=== PATIENT | female | born 1945 | race Caucasian/White ===

== ENCOUNTER → 2017-10-09 11:32 | Outpatient (CLI) | payer MEDICARE, MEDICAID, SELFPAY | PROVIDERS: Visit Provider Physician Assistant | DX: R30.0 Dysuria (principal) | CPT/HCPCS: 87086; 87088 ==

== ENCOUNTER → 2018-06-27 17:07 | Outpatient (CLI) | payer MEDICARE, MEDICAID, SELFPAY ==
[2017-02-19 16:45] VITALS: BMI 21.2
[2018-06-27 17:50] LABS: Hematocrit 37.6 % (37-47); Hemoglobin 12.6 g/dl (12.0-15.0); Mean Corp Hgb Conc 33.5 g/gl (32-36); Mean Corpuscular Hgb 32.2 pg (27.0-32.0); Mean Corpuscular Volume 96.2 fL (81-99); Platelet Count 421 K/mm3 (150-450); RBC Distribution Width CV 13.3 % (11.6-14.6); RBC Distribution Width SD 46.4 fl (35.1-43.9); Red Blood Count 3.91 M/mm3 (4.2-5.4); White Blood Count 8.1 K/mm3 (4.4-11.0)
[2018-06-27 17:53] LABS: Erythrocyte Sedimentation Rate 7 mm/hr (0-30); Scan Indicated on CBC? Y/N NO
[2018-06-27 18:08] LABS: ALB/GLOB Ratio 1.3 RATIO (0.9-2.4); AST(SGOT) 20 U/L (15-37); Alanine Aminotransfer ALT/SGPT 15 U/L (13-56); Albumin, Serum 4.2 g/dL (3.2-5.0); Alkaline Phosphatase 74 U/L (45-117); Anion Gap 4 (5-15); BUN 23 mg/dL (7-18); BUN/Creat Ratio 25.2 RATIO (10-20); Calcium,Total 9.4 mg/dL (8.5-10.1); Chloride 101 mmol/L (98-107); Cholesterol 191 mg/dL (200); Creatinine, Serum 0.91 mg/dL (0.55-1.02); EST Glomerular Filtration Rate 65 mL/min (>60); Est Glom Filt Rate - Afr Amer 78 mL/min (>60); Globulin 3.3 g/dL (2.2-4.2); Glucose 101 mg/dL (74-106); High Density Lipoprotein 50 mg/dL; Potassium 4.7 mmol/L (3.5-5.1); Protein, Total 7.5 g/dL (6.4-8.2); Sodium Level 133 mmol/L (136-145); Thyroid Stim Hormone (TSH) 1.01 uIU/mL (0.358-3.74); Triglycerides 119 mg/dL; Very Low Density Lipoprotein 24 mg/dL (5-40); Vitamin D,25 Hydroxy 99.1 ng/mL (29.95-100.01)
== END ==
PROVIDERS: Family Provider Physician Assistant; PCP Physician Assistant; Referring Provider Physician Assistant; Visit Provider Physician Assistant
DX: F50.00 Anorexia nervosa, unspecified (principal); Z13.220 Encounter for screening for lipoid disorders; G40.009 Localization-related (focal) (partial) idiopathic epilepsy and epileptic syndromes with seizures of localized onset, not intractable, without status epilepticus; E55.9 Vitamin D deficiency, unspecified
CPT/HCPCS: 80053; 80061; 82306; 84443; 85027; 85652

== ENCOUNTER → 2018-06-30 | Outpatient (CLI) | payer MEDICARE, MEDICAID, SELFPAY ==
[2017-02-19 16:45] VITALS: BMI 21.2
[2018-07-04 12:00] LABS: KEPPRA (LEVETIRACETAM) 43.4 ug/mL (10.0-40.0)
== END | disposition home or self-care (01) ==
LOC: LABSPEC 10:13
PROVIDERS: Family Provider Physician Assistant; PCP Physician Assistant; Referring Provider Physician Assistant; Visit Provider Physician Assistant
DX: G40.009 Localization-related (focal) (partial) idiopathic epilepsy and epileptic syndromes with seizures of localized onset, not intractable, without status epilepticus (principal)
CPT/HCPCS: 80177

== ENCOUNTER → 2018-07-16 | Outpatient (CLI) | payer MEDICARE, MEDICAID, SELFPAY | END | disposition home or self-care (01) | LOC: LABSPEC 07-17 12:50 | PROVIDERS: Family Provider Physician Assistant; PCP Physician Assistant; Referring Provider Family Medicine; Visit Provider Family Medicine | DX: R35.0 Frequency of micturition (principal) | CPT/HCPCS: 87077; 87086; 87088 ==

== ENCOUNTER → 2018-07-22 | Outpatient (CLI) | payer MEDICARE, MEDICAID, SELFPAY ==
[2017-02-19 16:45] VITALS: BMI 21.2
[2018-07-22 16:28] LABS: Anion Gap 5 (5-15); BUN 17 mg/dL (7-18); BUN/Creat Ratio 18.2 RATIO (10-20); Calcium,Total 9.1 mg/dL (8.5-10.1); Chloride 102 mmol/L (98-107); Creatinine, Serum 0.93 mg/dL (0.55-1.02); EST Glomerular Filtration Rate 63 mL/min (>60); Est Glom Filt Rate - Afr Amer 76 mL/min (>60); Glucose 68 mg/dL (74-106); Sodium Level 136 mmol/L (136-145)
== END | disposition home or self-care (01) ==
LOC: LABSPEC 15:55
PROVIDERS: Family Provider Physician Assistant; PCP Physician Assistant; Referring Provider Family Medicine; Visit Provider Family Medicine
DX: E87.1 Hypo-osmolality and hyponatremia (principal)
CPT/HCPCS: 80048

== ENCOUNTER 2018-07-26 13:12 | Emergency (ER) | payer MEDICARE, MEDICAID, SELFPAY ==
[2018-07-26 13:14] VITALS: BP 124/68; PULSE 78; RESP 19; TEMP 37; O2SAT 94; BMI 16.8
[2018-07-26 14:01] LABS: Absolute Lymphocyte Count 0.67 X10^3/ul (0.83-4.51); Absolute Neutrophil Count 7.1 X10^3/uL (2.0-7.7); Basophil# 0.03 X10^3/uL; Basophil% 0.4 % (0-1); Eosinophil# 0.05 X10^3/uL; Eosinophils% 0.6 % (0-5); Hematocrit 37.1 % (37-47); Hemoglobin 12.6 g/dl (12.0-15.0); Lymphocyte # 0.67 X10^3/ul (4.0); Lymphocyte % 7.9 % (19-41); Mean Corpuscular Hgb 32.1 pg (27.0-32.0); Mean Corpuscular Volume 94.6 fL (81-99); Mean Platelet Vol. 8.6 fl (6.2-12.0); Monocyte# 0.67 X10^3/uL; Monocyte% 7.9 % (0-10); Neutrophil # 7.06 X10^3/uL (2.7-7.7); Neutrophil % 83.1 % (47-70); POSITIVE COUNT NO; POSITIVE DIFFERENTIAL NO; POSITIVE MORPHOLOGY NO; Platelet Count 372 K/mm3 (150-450); RBC Distribution Width CV 12.9 % (11.6-14.6); RBC Distribution Width SD 44.9 fl (35.1-43.9); Red Blood Count 3.92 M/mm3 (4.2-5.4); White Blood Count 8.5 K/mm3 (4.4-11.0)
--- NOTE | 2018-07-26 14:02 | EKG12_ITS ---
Test Reason : SEIZURES Blood Pressure : / mmHG Vent. Rate : 075 BPM Atrial Rate : 075 BPM P-R Int : 160 ms QRS Dur : 090 ms QT Int : 394 ms P-R-T Axes : 067 013 042 degrees QTc Int : 439 ms Normal sinus rhythm Septal infarct , age undetermined Abnormal ECG Confirmed by NATTY ROJAS, RACHEL ([id number]), editor farm journal FIOR ERYES ([id number]) on 07/28/2018 11:43:09 AM Referred By: AJ/ESTEBAN Confirmed By:RACHEL LUZ MD
[2018-07-26 14:07] LABS: Anion Gap 6 (5-15); BUN 19 mg/dL (7-18); BUN/Creat Ratio 22.8 RATIO (10-20); Calcium,Total 9.3 mg/dL (8.5-10.1); Chloride 101 mmol/L (98-107); Creatinine, Serum 0.84 mg/dL (0.55-1.02); EST Glomerular Filtration Rate 71 mL/min (>60); Est Glom Filt Rate - Afr Amer 86 mL/min (>60); Estimated Creatinine Clearance 41.79 ml/min; Glucose 117 mg/dL (74-106); Potassium 4.1 mmol/L (3.5-5.1); Sodium Level 134 mmol/L (136-145)
--- NOTE | 2018-07-26 14:21 | ED.DCSUM_ITS ---
- ER Visit Summary Date of Service: 07/26/18 Chief Complaint: Seizure History of Present Illness: The patient is a 72 F who presents with a seizure that occurred today. Patient states she has a history of seizures. Patient states she was just told she had a seizure. Patient denies any loss of bowel or bladder control. Patient denies biting her tongue. Patient is unsure if it was a generalized seizure. Patient denies any headaches. Patient states she has chronic neck and back pain but this is not any worse than usual. Patient denies any recent fevers or chills. Family states patient was recently started on antibiotic for urinary tract infection. Physical Examination: Vital signs are stable. Patient is afebrile. Patient is in no acute distress. Oral mucosa is pink and moist. Neck is supple. Trachea is midline. There is no JVD noted. Heart was regular rate and rhythm. Lungs are clear and equal bilateral. Abdomen is soft. Bowel sounds are normal. There is no tenderness. There is no guarding noted. Skin is warm dry. Cranial nerves II through XII are intact. There are no focal motor or sensory deficits noted. The remaining physical exam is within normal limits. Test Results: CBC was normal. Basic metabolic profile was essentially normal. Urinalysis shows 1+ bacteria, leukocyte esterase of 25, and occult blood of 10. A Lamictal level was ordered and is pending. Emergency Department Course and Treatment: Patient had no further seizure activity here in the emergency department. Patient was instructed to stop taking the Cipro. Patient was given a prescription for Bactrim. Patient was instructed to follow-up with her primary care physician in 5 to 7 days. Patient and family understood and were agreeable with the plan. All questions were answered. Disposition: Discharge home Impression: Seizure disorder with breakthrough seizure This note was generated with [employer] dictation software. It may contain incorrect words, spelling, and punctuation that were not noted in review of the chart prior to signing ED Disposition - Plan for ED Patient: Disposition: Home or Assisted Living Diagnosis: Breakthrough seizure Instructions: ED Seizure Recurrent Prescriptions: Smz/Tmp Ds [Bactrim Ds] 1 tab PO BID #6 tab Referrals: Navjot Muñoz PA [Primary Care Provider] - 3-5 Days Additional Instructions: Stop taking Cipro and take Bactrim instead.
[2018-07-26 14:48] LABS: Red Blood Cells-Urine 0 SEEN /hpf (0-5)
[2018-07-26 14:51] LABS: Color, Urine Yellow (Yellow); Glucose, Dipstick Normal (Normal); Ketone-Dipstick 5 mg/dl (Negative); Leukocyte Esterase-Dipstick 25 /ul (Negative); Nitrite-Dipstick Negative (Negative); Occult Blood-Urine 10 /ul (Negative); Protein-Dipstick 30 mg/dl (Negative); Urine Bilirubin Dipstick Negative (Negative); Urine Clarity Clear (Clear); Urine Urobilinogen Normal (Normal)
[2018-07-26 14:54] VITALS: BP 128/65; PULSE 69; RESP 19; O2SAT 95
[2018-07-26 14:57] LABS: Bacteria 1+ /hpf (None Seen); Hyaline Cast 5-10 SEEN /lpf (0-5); Mucous, Urine 1+ /hpf (<or=2+); Squamous Epithelial Cells - UA 0-5 SEEN /hpf (5-10); White Blood Cells 0-5 SEEN /hpf (0-5)
[2018-07-26 17:09] VITALS: BP 122/71; PULSE 61; RESP 18; O2SAT 96
[2018-07-30 12:20] LABS: Lamotrigine (Lamictal) Level 6.8 ug/mL (2.0-20.0)
== END 2018-07-26 17:10 | disposition home or self-care (01) ==
PROVIDERS: Emergency Provider Emergency Medicine; Family Provider Physician Assistant; PCP Physician Assistant
DX: G40.909 Epilepsy, unspecified, not intractable, without status epilepticus (principal); M54.2 Cervicalgia; M54.9 Dorsalgia, unspecified; G89.29 Other chronic pain; N39.0 Urinary tract infection, site not specified; Z79.899 Other long term (current) drug therapy; F17.200 Nicotine dependence, unspecified, uncomplicated
CPT/HCPCS: 80048; 81001; 82542; 85025; 93005; 99285; A4216

== ENCOUNTER 2018-09-27 12:10 | Emergency (ER) | payer MEDICARE, MEDICAID, SELFPAY ==
[2018-09-27 12:11] VITALS: BP 118/62; PULSE 68; RESP 15; TEMP 36.1; O2SAT 95
[2018-09-27 13:02] VITALS: BP 118/62; PULSE 68; RESP 15; TEMP 36.1; O2SAT 95
--- NOTE | 2018-09-27 13:15 | CM.ED ---
SOCIAL WORK INFORMANT: TRIAGE NURSE REASON FOR REFERRAL: MENTAL HEALTH/S.I. MET WITH PATIENT AND PATIENT'S FAMILY IN ROOM. GIVEN PERMISSION TO SPEAK OPENLY WITH FAMILY PRESENT. INTRODUCED ROLE AND REASON FOR REFERRAL. PATIENT ADMITS TO SUICIDAL IDEATION, DENIES ANY PLAN OR INTENT. PATIENT STATES HAS HAD DIARRHEA FOR SEVERAL DAYS WITH NO APPETITE. PATIENT STATES HAS JUST BEEN FEELING ACHY ALL OVER. EMOTIONAL SUPPORT PROVIDED. FAMILY VOICES CONCERNS FOR PATIENT REGARDING DEHYDRATION AND DIARRHEA. FAMILY REPORTS MEDICATIONS FOR DEPRESSION HAVE BEEN RECENTLY CHANGED OVER THE LAST 3 WEEKS. PATIENT WAS SWITCHED FROM LEXAPRO TO CYMBALTA. CYMBALTA WAS INCREASED FROM 30MG TO 60MG OVER THE LAST 2 WEEKS. FAMILY BELIEVES PATIENT WOULD BENEFIT FROM COUNSELING. PATIENT REFUSING. FAMILY VOICES PATIENT HAS BEEN MORE CONFUSED. EDUCATION ACTIVE LISTENING AND SUPPORT PROVIDED. FAMILY REPORTS PROVIDES 24 HOUR CARE OF PATIENT AND PATIENT IS NOT LEFT BY HERSELF. DISCUSSED THE ABOVE WITH HIGH REACH OPERATOR, RAYNA REYES. RAYNA TO COMPLETE WORK UP. RALPH VILLAFANA, WINE MASTER, MERCHANDISE DIRECTOR.
--- NOTE | 2018-09-27 13:40 | ED.RN ---
pt not a 1 to 1 required sitter per neetu la and [facility] social work
--- NOTE | 2018-09-27 13:45 | ED.VIS.GEN ---
History of Present Illness Chief Complaint: Diarrhea Informant: Patient, Family Onset: Weeks Context: Gradual Onset Timing: - - 3-4 times daily Current Severity: Moderate Maximum Severity: Moderate Worsened by: Nothing Relieved by: Nothing Narrative: Chelly is a 73-year-old female with diarrhea for 1 week. She states she says 3-4 bowel movements daily. They are not bloody. She denies abdominal pain or fever. She denies nausea ,vomiting although she did have dry heaves this morning. Complains of weight loss. Prior similar symptoms: No Recent Illness/Hospitalization: No Past Medical History - Allergies and Home Meds Allergies/Adverse Reactions: Allergies diltiazem Allergy (Verified 09/27/18 12:11) Unknown gabapentin Allergy (Verified 09/27/18 12:11) SEVERE LEG SWELLING hydrochlorothiazide [From Dyazide] Allergy (Verified 09/27/18 12:11) Unknown metoprolol Allergy (Verified 09/27/18 12:11) Unknown phenytoin [From Dilantin] Allergy (Verified 09/27/18 12:11) TREMORS/TWITCHING triamterene Allergy (Verified 09/27/18 12:11) Unknown ciprofloxacin [From Cipro] Adverse Reaction (Verified 09/27/18 12:11) Other Primary Care Physician: Navjot Muñoz PA [Primary Care Provider] - Smoking Status: Never smoker - Family History Sibling Family History: Reports: Diabetes, Heart Disease Review of Systems General: Denies: Chills, Fever Eyes: Denies: Visual changes - left, Blurred vision - left Cardiovascular: Denies: Chest pain, Palpitations Respiratory: Denies: Dyspnea, Cough, Sputum Gastrointestinal: Reports: Diarrhea. Denies: Abdominal pain, Nausea, Vomiting, Constipation, Melena, Hematochezia - Dry heaves earlier today Genitourinary: Reports: Frequency. Denies: Dysuria, Hematuria Musculoskeletal: Denies: Neck pain, Back pain, Extremity Pain Neurological: Denies: Headache, Weakness, Parasthesia Physical Exam Vital Signs/Narrative: Vital Signs Temp Pulse Resp BP Pulse Ox 09/27/18 13:02 96.9 F L 68 15 118/62 95 09/27/18 12:11 96.9 F L 68 15 118/62 95 General: Well nourished, Well developed Head: Normocephalic, Atraumatic Eyes: Perrl, EOMI. Negative for: Pale conjunctiva ENT: Moist mucous membranes. Negative for: Dry mucous membranes Neck: Supple, Nontender Cardiovascular: Regular rate, Regular rhythm, No murmurs Respiratory: No distress, CTA bilaterally Abdomen: Soft, Nontender, Nondistended Back: Normal Inspection. Negative for: CVA tenderness Extremities: Nontender, No edema Skin: Normal color, No rash Neurological: Alert, Oriented x3 Psychological: Normal affect, Agitated - Family who she lives with stated that she has been grouchy her than normal and recently had her psychiatric medications changed. She has had suicidal ideation and suicide attempt with overdose in the past. She currently denies this but states she is just mad that she is here. Diagnostic/Tx/Re-eval - Medical Decision Making Lab tests reveal potassium of 2.6 otherwise unremarkable. She did not produce a stool specimen while in the emergency department for several hours. Her urine was sent to the lab but was never received. Patient was hydrated with IV fluids and her mucous membranes were moist her entire stay here. She had no complaints she was treated with K-Dur for her potassium 2.6. road production general managerbusiness resiliency manager worker did evaluate her for statement of being suicidal in triage. She is felt to be low risk as she currently denies it and lives with family 17/09. States she is seeing a psychiatrist who is adjusting her medicines. The only thing different the family has noted that she has been grouchy or than normal. She will be discharged home with family with a prescription for potassium. She has a specimen cup at home to collect her stool to evaluate. Plan is discharged home after IV potassium replacement. Will be prescribed 5 days of potassium supplement for home. Total care is resumed by Dr Daniels. imPression: Hypokalemia Diarrhea Mild dehydration Psychiatric illness under psychiatric outpatient care without acute suicidal ideation ED Disposition - Plan for ED Patient: Disposition: Home or Assisted Living Diagnosis: Hypokalemia Instructions: DIARRHEA, Unk Cause (Adult) Report Pendg Prescriptions: Potassium Chloride [K-Dur] 40 meq PO DAILY #10 tab Prescription Printed Referrals: Navjot Muñoz PA [Primary Care Provider] -
[2018-09-27 14:15] LABS: Absolute Lymphocyte Count 0.66 X10^3/uL (0.83-4.51); Absolute Neutrophil Count 6.3 X10^3/uL (2.0-7.7); Basophil# 0.03 X10^3/uL; Basophil% 0.4 % (0-1); Eosinophil# 0.02 X10^3/uL; Eosinophils% 0.3 % (0-5); Hematocrit 36.4 % (37-47); Hemoglobin 12.6 g/dL (12.0-15.0); Lymphocyte # 0.66 X10^3/ul (4.0); Lymphocyte % 8.6 % (19-41); Mean Corp Hgb Conc 34.6 g/dL (32-36); Mean Corpuscular Hgb 31.7 pg (27.0-32.0); Mean Corpuscular Volume 91.7 fL (81-99); Mean Platelet Vol. 8.4 fl (6.2-12.0); Monocyte# 0.61 X10^3/uL; NRBC Flagged by Analyzer 0 % (0-5); Neutrophil # 6.33 X10^3/uL (2.7-7.7); Neutrophil % 82.4 % (47-70); Platelet Count 319 K/mm3 (150-450); RBC Distribution Width CV 11.9 % (11.6-14.6); Red Blood Count 3.97 M/mm3 (4.2-5.4); White Blood Count 7.7 K/mm3 (4.4-11.0)
[2018-09-27 14:36] LABS: Anion Gap 9 (5-15); BUN 18 mg/dL (7-18); BUN/Creat Ratio 21.5 RATIO (10-20); Calcium,Total 8.7 mg/dL (8.5-10.1); Chloride 101 mmol/L (98-107); Creatinine, Serum 0.84 mg/dL (0.55-1.02); EST Glomerular Filtration Rate 71 mL/min (>60); Est Glom Filt Rate - Afr Amer 86 mL/min (>60); Estimated Creatinine Clearance 17.56 ml/min; Glucose 110 mg/dL (74-106); Potassium 2.6 mmol/L (3.5-5.1); Sodium Level 138 mmol/L (136-145)
--- NOTE | 2018-09-27 15:46 | ED.RN ---
pt has not had any episode of diarrhea so far in this visit
--- NOTE | 2018-09-27 16:15 | NURSING ---
RN CALLED TO LAB TO CHECK ON URINE RESULTS, LAB STATES THEY DIDN'T RECEIVE ANY URINE. RAYNA MEDIA REPORTER AWARE AND DOES NOT WANT ANOTHER URINE SAMPLE AT THIS TIME.
--- NOTE | 2018-09-27 17:39 | ED.RN ---
pt wants to leave AMA. family states they will just leave her here. dr alcantar into room to discuss treatment goals and options with the family. pt refuses to allow dayna rn to attach monitor leads or start potassium at this time. Dale from social work contacted , in department to talk with family and Dr Alcantar
[2018-09-27] MEDS: Potassium Chloride 10mEq/100mL 10 MEQ/100 ML IV.SOLN. 100 MEQ IV BOLUS ×2 (18:04→19:06)
[2018-09-27 18:15] VITALS: BP 133/65; PULSE 82; RESP 18; O2SAT 98
--- NOTE | 2018-09-27 18:20 | CM.ED ---
Addendum entered by Zoila Villafana 09/27/18 18:43: AFTER LENGTHY DISCUSSION WITH FAMILY. PLAN TO MAKE ADULT PROTECTIVE SERVICE REPORT REGARDING HOME SITUATION. Original Note: SOCIAL WORK THIS WORKER MET WITH PATIENT AND PATIENT'S FAMILY SEPARATELY. PATIENT CONTINUES TO DENY SUICIDAL IDEATION AND STATES JUST WANTS TO GO HOME. ENCOURAGED PATIENT TO COMPLY WITH PLAN OF CARE AND RECEIVE POTASSIUM. AT THIS TIME, PATIENT AGREEABLE TO PLAN OF CARE. NURSE, MINI UPDATED. MET WITH PATIENT'S FAMILY OUTSIDE. DISCUSSED ISSUES AT HOME AND PATIENT AND DAUGHTER'S BEHAVIORS TOWARDS EACH OTHER. EDUCATION AND EMOTIONAL SUPPORT PROVIDED. DAUGHTER STATES, I JUST WANT HER TO GET BETTER. DAUGHTER STATES DOES FEEL LIKE SHE ESCALATES PATIENT. INFORMED DAUGHTER AND SISTER PATIENT IS AGREEABLE TO RECEIVING POTASSIUM. FAMILY STATES THEY ARE GOING TO LEAVE FOR A LITTLE BIT, BUT WILL BE BACK AND ARE IN AGREEMENT WITH TAKING PATIENT HOME UPON D/C. NURSING AND DR. ADKINS UPDATED. ZOILA VILLAFANA, COAGULATING OPERATOR, BRINE ROOM LABORER.
--- NOTE | 2018-09-27 18:25 | ED.RN ---
Dale from [employer] to make report to [facility] regarding pt care
[2018-09-27 20:00] VITALS: BP 147/71; PULSE 83; RESP 18; O2SAT 95
--- NOTE | 2018-10-01 18:57 | CM.ED ---
SOCIAL WORK ADULT PROTECTIVE SERVICES REPORT COMPLETED. RALPH VILLAFANA, BUSBOY, DIRECTOR SURGICAL.
== END 2018-09-27 20:40 | disposition home or self-care (01) ==
PROVIDERS: Emergency Provider Nurse Practitioner; Family Provider Physician Assistant; PCP Physician Assistant
DX: E87.6 Hypokalemia (principal); R19.7 Diarrhea, unspecified; E86.0 Dehydration; F99 Mental disorder, not otherwise specified; R35.0 Frequency of micturition; Z91.5 Personal history of self-harm; Z79.899 Other long term (current) drug therapy
CPT/HCPCS: 80048; 85025; 96365; 96366; 99285; J7030; J7040; A4216

== ENCOUNTER → 2018-10-17 | Outpatient (CLI) | payer MEDICARE, MEDICAID, SELFPAY ==
[2018-10-17 14:03] LABS: Anion Gap 4 (5-15); BUN 19 mg/dL (7-18); BUN/Creat Ratio 30.4 RATIO (10-20); Calcium,Total 9.1 mg/dL (8.5-10.1); Chloride 104 mmol/L (98-107); Creatinine, Serum 0.62 mg/dL (0.55-1.02); EST Glomerular Filtration Rate 100 mL/min (>60); Est Glom Filt Rate - Afr Amer 121 mL/min (>60); Glucose 59 mg/dL (74-106); Potassium 4.5 mmol/L (3.5-5.1); Sodium Level 138 mmol/L (136-145)
[2018-10-18 08:12] LABS: Magnesium 2.1 mg/dL (1.6-2.6)
== END | disposition home or self-care (01) ==
LOC: LABSPEC 13:45
PROVIDERS: Family Provider Physician Assistant; PCP Physician Assistant; Referring Provider Nurse Practitioner Family; Visit Provider Nurse Practitioner Family
DX: E87.6 Hypokalemia (principal); E83.42 Hypomagnesemia
CPT/HCPCS: 80048; 83735

== ENCOUNTER 2019-11-12 03:01 | Inpatient (IN) | payer MEDICARE, MEDICAID, SELFPAY ==
[2019-11-12] VITALS (15 sets, daily range): BP systolic 123–166; BP diastolic 49–86; PULSE 75–89; RESP 12–22; TEMP 36.5–37.5; O2SAT 93–999; BMI 19.1; BMI 17.0
--- NOTE | 2019-11-12 03:13 | EKG12_ITS ---
Test Reason : FALL Blood Pressure : / mmHG Vent. Rate : 073 BPM Atrial Rate : 073 BPM P-R Int : 166 ms QRS Dur : 092 ms QT Int : 416 ms P-R-T Axes : 067 038 055 degrees QTc Int : 458 ms Normal sinus rhythm Normal ECG Confirmed by NATTY ROJAS, RACHEL ([id number]), social media editor ADA JOHNSON ([id number]) on 11/16/2019 1:29:34 PM Referred By: Gordon Hagen Confirmed By:RACHEL LUZ MD
--- NOTE | 2019-11-12 03:14 | RAD_ITS ---
STUDY: X-RAY - PELVIS REASON FOR EXAM: Female, 74 years old. Right hip, knee and ankle pain after fall. TECHNIQUE: One view of the pelvis was obtained. COMPARISON: December 06, 2015. FINDINGS: There is a non-specific bowel gas pattern. Stool is present throughout the colon which may represent constipation. Normal visualized soft tissue structures. Normal bilateral iliac wings, sacroiliac joints and visualized sacrum. Normal visualized bilateral superior and inferior pubic rami. Normal pubic symphysis. Normal ischial tuberosities. Right intertrochanteric fracture with apex lateral angulation and foreshortening. No dislocation. Total left hip arthroplasty in normal alignment. RAD/Pelvis 1 or 2 Views IMPRESSION: Intertrochanteric fracture right femur. Electronically Signed: Krzysztof Morocho MD at 4:16 EDT , Service support ,
--- NOTE | 2019-11-12 03:14 | RAD_ITS ---
STUDY: X-RAY CHEST REASON FOR EXAM: Female, 74 years old. Right hip, knee and ankle pain after fall. TECHNIQUE: AP portable chest. COMPARISON: February 21, 2017. FINDINGS: The lungs are hyperinflated. No focal infiltrate or effusions. No pneumothorax. Normal size heart. Normal mediastinum and galilea. Normal visualized pulmonary arteries. Atherosclerotic calcification of the aortic arch. Normal visualized thoracic spine. Normal visualized ribs, clavicles, and shoulders. There is no demonstrated abnormality of the visualized soft tissue structures of the upper abdomen. RAD/Chest 1 View (Portable) IMPRESSION: No acute cardiopulmonary disease. COPD. Electronically Signed: Krzysztof Morocho MD at 4:13 EDT , Service support ,
--- NOTE | 2019-11-12 03:15 | RAD_ITS ---
STUDY: X-RAY - RIGHT FEMUR REASON FOR STUDY: Female, 74 years old. Right hip knee and ankle pain after fall. TECHNIQUE: 4 view(s) of the femur. COMPARISON: Pelvis December 06, 2015. FINDINGS: Transverse intertrochanteric fracture with apex lateral angulation and foreshortening. No dislocation. Normal visualized soft tissue structure. RAD/Femur Min 2 Views IMPRESSION: Intertrochanteric fracture. Electronically Signed: Krzysztof Morocho MD at 4:18 EDT , Service support ,
--- NOTE | 2019-11-12 03:15 | RAD_ITS ---
STUDY: X-RAY - RIGHT ANKLE REASON FOR EXAM: Female, 74 years old. Right hip, knee and ankle pain after fall. TECHNIQUE: 2 view(s) of the ankle. COMPARISON: None. FINDINGS: Normal visualized distal tibia and fibula. Normal medial and lateral malleoli. Normal tibiotalar articulation and ankle mortise. Normal visualized talus and calcaneus. Plantar calcaneal bone spur. The visualized subtalar, talonavicular, calcaneocuboid and tarsal articulations are normal. The soft tissue structures are unremarkable. RAD/Ankle 2 Views IMPRESSION: No acute findings in the ankle. Electronically Signed: Krzysztof Morocho MD at 4:19 EDT , Service support ,
--- NOTE | 2019-11-12 03:16 | ED.VIS.GEN ---
History of Present Illness Chief Complaint: Fall Narrative: Patient is a 74-year-old female who presents after a fall. She was coming out of the bathroom and her foot slipped. She complains of severe right hip pain. Her extremity was noted to be shortened and rotated by EMS. She denies significant head injury. She is not anticoagulated. No loss of consciousness or amnesia. She complains of right hip and right ankle pain. No chest pain no difficulty breathing no abdominal or back pain. She otherwise denies recent illness. No fevers cough vomiting diarrhea. Past Medical History - Allergies and Home Meds Allergies/Adverse Reactions: Allergies diltiazem Allergy (Verified 11/12/19 03:02) Unknown gabapentin Allergy (Verified 11/12/19 03:02) SEVERE LEG SWELLING hydrochlorothiazide [From Dyazide] Allergy (Verified 11/12/19 03:02) Unknown metoprolol Allergy (Verified 11/12/19 03:02) Unknown phenytoin [From Dilantin] Allergy (Verified 11/12/19 03:02) TREMORS/TWITCHING triamterene Allergy (Verified 11/12/19 03:02) Unknown ciprofloxacin [From Cipro] Adverse Reaction (Verified 11/12/19 03:02) Other Primary Care Physician: Navjot Muñoz PA [Primary Care Provider] - Past Medical History: - - Hypertension, epilepsy, depression Smoking Status: Current every day smoker - Family History Sibling Family History: Reports: Diabetes, Heart Disease Review of Systems All systems negative except as indicated General: Denies: Fever Eyes: Denies: Visual changes - bilaterally Cardiovascular: Denies: Chest pain Respiratory: Denies: Dyspnea Gastrointestinal: Denies: Abdominal pain Musculoskeletal: Reports: Extremity Pain Skin: Denies: Rash Hematologic: Denies: Easy bruising Allergy: Denies: Uticaria Physical Exam Vital Signs/Narrative: Vital Signs Temp Pulse Resp BP Pulse Ox 11/12/19 03:02 98.8 F 78 12 138/65 H 94 Inital Vital Signs reviewed: Yes General: Well nourished Head: Normocephalic Eyes: EOMI ENT: Moist mucous membranes Neck: Supple Cardiovascular: Regular rate, Regular rhythm Respiratory: No distress, CTA bilaterally Abdomen: Soft, Nontender Extremities: - - Right lower extremity is shortened and externally rotated. She has painful limited range of motion of the right hip. She has no focal bony tenderness at the knee or ankle. She has a palpable dorsalis pedis pulse brisk capillary refill normal sensation light touch normal motor function at the ankle foot and toes Skin: Normal color Neurological: Alert Psychological: Normal affect Diagnostic/Tx/Re-eval Impressions Chest X-Ray 11/12/19 03:14 IMPRESSION: No acute cardiopulmonary disease. COPD. Electronically Signed: Krzysztof Morocho MD at 4:13 EDT , Service support , Pelvis X-Ray 11/12/19 03:14 IMPRESSION: Intertrochanteric fracture right femur. Electronically Signed: Krzysztof Morocho MD at 4:16 EDT , Service support , Ankle X-Ray 11/12/19 03:15 IMPRESSION: No acute findings in the ankle. Electronically Signed: Krzysztof Morocho MD at 4:19 EDT , Service support , Femur X-Ray 11/12/19 03:15 IMPRESSION: Intertrochanteric fracture. Electronically Signed: Krzysztof Morocho MD at 4:18 EDT , Service support , 11/12/19 03:14 Chest 1 View (Portable) [RAD] Stat Pelvis 1 or 2 Views [RAD] Stat 11/12/19 03:15 Ankle 2 Views [RAD] Stat Femur Min 2 Views [RAD] Stat Laboratory Results 11/12/19 11/12/19 11/12/19 03:10 03:10 03:10 WBC 7.3 RBC 3.49 L Hgb 9.4 L Hct 30.5 L MCV 87.4 MCH 26.9 L MCHC 30.8 L RDW Std Deviation 52.9 H RDW Coeff of Young 16.4 H Plt Count 447 MPV 8.6 Immature Gran % (Auto) 0.300 Neut % (Auto) 55.7 Lymph % (Auto) 33.3 Gallia % (Auto) 9.5 Eos % (Auto) 0.0 Baso % (Auto) 1.2 H Absolute Neuts (auto) 4.1 Absolute Lymphs (auto) 2.42 Nucleated RBC % 0 PT 12.6 INR 1.0 Sodium 140 Potassium 4.3 Chloride 105 Carbon Dioxide 29.0 Anion Gap 6 BUN 16 Creatinine 0.87 Estim Creat Clear Calc 44.55 Est GFR (MDRD) Af Amer 82 Est GFR (MDRD) Non-Af 68 BUN/Creatinine Ratio 18.4 Glucose 111 H Calcium 8.7 Blood Type Antibody Screen 11/12/19 03:10 WBC RBC Hgb Hct MCV MCH MCHC RDW Std Deviation RDW Coeff of Young Plt Count MPV Immature Gran % (Auto) Neut % (Auto) Lymph % (Auto) Gallia % (Auto) Eos % (Auto) Baso % (Auto) Absolute Neuts (auto) Absolute Lymphs (auto) Nucleated RBC % PT INR Sodium Potassium Chloride Carbon Dioxide Anion Gap BUN Creatinine Estim Creat Clear Calc Est GFR (MDRD) Af Amer Est GFR (MDRD) Non-Af BUN/Creatinine Ratio Glucose Calcium Blood Type A POSITIVE Antibody Screen NEGATIVE - Medical Decision Making EKG shows normal sinus rhythm at a rate of 73 with no acute ischemic changes. Serum laboratory studies are unremarkable. Chest x-ray unremarkable. Right ankle x-ray shows no acute fracture. X-rays of the pelvis and right femur do show an intertrochanteric displaced hip fracture. Patient is previously had surgery on the other hip by Dr. Martinez. I spoke to Dr. Martinez and she or a partner will see the patient and patient will be admitted to a medical service. Patient discussed with the hospitalist who agrees to admit. ED Disposition - Plan for ED Patient: Disposition: Acute Care Hospital [facility] Diagnosis: Fall, Closed right hip fracture Referrals: Navjot Muñoz PA [Primary Care Provider] -
[2019-11-12 03:25] LABS: Absolute Lymphocyte Count 2.42 X10^3/uL (0.83-4.51); Absolute Neutrophil Count 4.1 X10^3/uL (2.0-7.7); Basophil# 0.09 X10^3/uL; Basophil% 1.2 % (0-1); Hematocrit 30.5 % (37-47); Hemoglobin 9.4 g/dL (12.0-15.0); Lymphocyte # 2.42 X10^3/ul (4.0); Lymphocyte % 33.3 % (19-41); Mean Corp Hgb Conc 30.8 g/dL (32-36); Mean Corpuscular Hgb 26.9 pg (27.0-32.0); Mean Corpuscular Volume 87.4 fL (81-99); Mean Platelet Vol. 8.6 fl (6.2-12.0); Monocyte# 0.69 X10^3/uL; Monocyte% 9.5 % (0-10); NRBC Flagged by Analyzer 0 % (0-5); Neutrophil # 4.05 X10^3/uL (2.7-7.7); Neutrophil % 55.7 % (47-70); Platelet Count 447 K/mm3 (150-450); RBC Distribution Width CV 16.4 % (11.6-14.6); RBC Distribution Width SD 52.9 fl (35.1-43.9); Red Blood Count 3.49 M/mm3 (4.2-5.4); White Blood Count 7.3 K/mm3 (4.4-11.0)
[2019-11-12 03:37] LABS: Prothrombin Time (Protime)PT. 12.6 SECONDS (11.7-14.9)
[2019-11-12 03:38] LABS: Anion Gap 6 (5-15); BUN 16 mg/dL (7-18); BUN/Creat Ratio 18.4 RATIO (10-20); Calcium,Total 8.7 mg/dL (8.5-10.1); Chloride 105 mmol/L (98-107); Creatinine, Serum 0.87 mg/dL (0.55-1.02); EST Glomerular Filtration Rate 68 mL/min (>60); Est Glom Filt Rate - Afr Amer 82 mL/min (>60); Estimated Creatinine Clearance 44.55 ml/min; Glucose 111 mg/dL (74-106); Potassium 4.3 mmol/L (3.5-5.1); Sodium Level 140 mmol/L (136-145)
--- NOTE | 2019-11-12 04:43 | HP.PCM_ITS ---
Problem List (1) Fall Status: Acute (2) Closed right hip fracture Status: Acute (3) Seizure Status: Chronic (4) History of seizures Status: Chronic (5) History of hypertension Status: Chronic History of Present Illness Date of Admission: 11/12/19 Chief Complaint: Fall The patient is a 74 year old F with a significant history of basicervical fracture of left femur status post failed left cephalo-medullary nailing and conversion to hip ree-arthroplasty; ;seizures; hypertension and COPD who presented to the emergency department with a fall. Reportedly patient was returning from the bathroom into her recliner where she sleeps and she fell landing on her right hip and developing excruciating pain at the right hip. She attributes her fall to loss of balance. Paramedics found her right hip to be shortened and externally rotated. She complained of right ankle pain. Ankle x-ray did not show any acute findings. Pelvic x-ray and femur x-ray was remarkable for intertrochanteric fracture of the right femur. Past Medical History Past Medical History (Chronic Problems): Chronic Problems Seizure (Chronic) History of seizures (Chronic) History of hypertension (Chronic) Allergies diltiazem Allergy (Verified 11/12/19 03:02) Unknown gabapentin Allergy (Verified 11/12/19 03:02) SEVERE LEG SWELLING hydrochlorothiazide [From Dyazide] Allergy (Verified 11/12/19 03:02) Unknown metoprolol Allergy (Verified 11/12/19 03:02) Unknown phenytoin [From Dilantin] Allergy (Verified 11/12/19 03:02) TREMORS/TWITCHING triamterene Allergy (Verified 11/12/19 03:02) Unknown ciprofloxacin [From Cipro] Adverse Reaction (Verified 11/12/19 03:02) Other Home Medications: Ambulatory Orders Medication Instructions Recorded Amlodipine [Norvasc] 10 mg PO DAILY 11/09/15 Losartan Potassium 25 mg PO BID 11/09/15 Albuterol Inhaler [Ventolin Hfa] 2 puff INHALATION Q4H PRN PRN #1 03/24/16 inhaler Cholecalciferol (Vitamin D3) 2,000 unit PO BID 02/19/17 [Vitamin D3] Lamotrigine [Lamictal] 200 mg PO BID 02/19/17 Pantoprazole Sodium 40 mg PO DAILY 02/19/17 Levetiracetam [Keppra] 750 mg PO QHS 11/06/17 levETIRAcetam tablet [Keppra 500 mg PO DAILY 11/06/17 tablet] Duloxetine Hcl [Cymbalta] 30 mg PO DAILY 09/27/18 Mirtazapine [Remeron] 30 mg PO QHS 11/12/19 Surgical History: total hip arthroplasty, tonsillectomy, - - left hip pinning; 2 C-sections Smoking Status: Current every day smoker - *Family History Sibling History Items: Diabetes, Heart Disease Review of Systems Constitutional: Denies: Chills, Fever, Weight Change HEENT: Denies: Head Aches, Sinus Congestion, Sinus Drainage Cardiovascular: Reports: Orthopnea. Denies: Chest Pain, Palpitations Respiratory: Denies: Cough, Shortness of breath at rest, Sputum production Gastrointestinal: Denies: Abdominal Pain, Nausea, Vomiting Genitourinary: Denies: Dysuria Musculoskeletal: Denies: Joint Pain, Joint Tenderness Skin: Denies: Rash, Wounds Neurological: Denies: Numbness, Tingling, Focal weakness Psychiatric: Denies: Anxiety, Depression, Homicidal Ideations, Suicidal Ideations Hematologic/ Lymphatic: Denies: Easy Bruising, Easy Bleeding VTE Information - Inpt Only VTE Present on Admission: No VTE Mechan Device Prophylaxis: SCD's VTE Pharm Prophylaxis ordered?: No Patient Problems: Active and Suspected Problems Fall (Acute) Closed right hip fracture (Acute) - Physical Exam Vitals/I&O's: Vital Signs Temp Pulse Resp BP Pulse Ox 98.8 F 78 12 138/65 H 94 11/12/19 03:02 11/12/19 03:02 11/12/19 03:02 11/12/19 03:02 11/12/19 03:02 Oxygen Delivery Method Room Air Weight: 49 kg Body Mass Index (BMI) 19.1 General: Alert, Oriented x3, Cooperative HEENT: Atraumatic, PERRLA, EOMI, Normocephalic, - - Repeated movements of facial muscles. Oral: - - repeated movement of tongue Neck: Supple, No JVD, Negative Carotid Bruits Lungs: Clear to auscultation, Normal air movement, No rhonchi, No wheeze Cardiovascular: Regular rate, Regular Rhythm, Normal S1, Normal S2, No murmurs Abdomen: Bowel Sounds Present, Soft, Non Tender Extremities: No edema, Capillary Refill Less than 3 Seconds, - - Tender right hip. Externally rotated right lower extremity. Skin: No rashes, No breakdown Musculoskeletal: No Tenderness to Palpation of Joints or Extremities Neurological: Cranial nerves II-XII grossly intact Psych/Mental Status: Normal Affect, Appropriate Laboratory Results 11/12/19 03:10: WBC 7.3, RBC 3.49 L, Hgb 9.4 L, Hct 30.5 L, MCV 87.4, MCH 26.9 L , MCHC 30.8 L, RDW Std Deviation 52.9 H, RDW Coeff of Young 16.4 H, Plt Count 447, MPV 8.6, Immature Gran % (Auto) 0.300, Neut % (Auto) 55.7, Lymph % (Auto) 33.3, [place] % (Auto) 9.5, Eos % (Auto) 0.0, Baso % (Auto) 1.2 H, Absolute Neuts (auto) 4.1, Absolute Lymphs (auto) 2.42, Nucleated RBC % 0 11/12/19 03:10: PT 12.6, INR 1.0 11/12/19 03:10: Sodium 140, Potassium 4.3, Chloride 105, Carbon Dioxide 29.0, Anion Gap 6, BUN 16, Creatinine 0.87, Estim Creat Clear Calc 44.55, Est GFR (MDRD) Af Amer 82, Est GFR (MDRD) Non-Af 68, BUN/Creatinine Ratio 18.4, Glucose 111 H, Calcium 8.7 11/12/19 03:10: Blood Type A POSITIVE, Antibody Screen NEGATIVE Assessment/Plan All Active Problems Fall (Acute) Closed right hip fracture (Acute) The patient is a 74 year old F with a significant history of basicervical fracture of left femur status post failed left cephalo-medullary nailing and conversion to hip ree-arthroplasty; ;seizures; hypertension and COPD who presented to the emergency department with a fall; right hip pain and shortened and externally rotated right lower extremities and with radiographic evidence of right intertrochanteric fracture of the femur. Right intertrochanteric fracture of the femur. Pain control with PRN Tylenol; PRN oxycodone and PRN morphine. Bowel protocol and antiemetics with IV Zofran. Orthopedic consult. We will keep patient n.p.o. except meds. Gentle fluids in the setting of n.p.o. status. Per ACS NSQIP surgical risk calculator patient has below average risk of cardiac complications and; and any other complication. However her return to the OR is average. With patient reporting that she sleeps in a recliner she is above average risk of cardiopulmonary complications. However she denies any active chest pain or shortness of breath. Chest x-ray is remarkable for hyperinflation likely secondary to COPD. Patient is unsure whether she has COPD. The last time that she use her prescribed inhaler is about a year ago. She does not have a COPD flare. Will admit to the progressive care unit on telemetry. Vitamin B12 and vitamin D level. Home vitamin D continued. Epilepsy Lamictal continued Keppra continued Hypertension Blood pressure is stable in regards to her age Amlodipine continued Losartan continued Trend blood pressure and adjust blood pressure medications. Depression/insomnia Mirtazapine continued DVT Prophylaxis SCD. Inpatient E&M: 18689 Init Hosp L3
[2019-11-12] MEDS: Lactated Ringers 1,000 ML 50 ML IV (06:47)
[2019-11-12] MEDS: Morphine 2 MG/ML Syringe 1 MG IV ×3 (07:57→18:11)
[2019-11-12] MEDS: Acetaminophen 325 MG Tablet 650 MG PO (09:30)
[2019-11-12] MEDS: oxyCODONE 5 MG Tablet PO ×3 (09:30→20:00)
[2019-11-12] MEDS: levETIRAcetam 500 MG Tablet PO (09:31)
[2019-11-12] MEDS: Losartan Potassium 25 MG Tablet PO ×2 (09:31→22:39)
[2019-11-12] MEDS: Pantoprazole Sodium 40 MG Tablet PO (09:31)
[2019-11-12] MEDS: amLODIPine 10 MG Tablet PO (09:31)
[2019-11-12 09:39] LABS: Vitamin B12 397 pg/mL (211-911); Vitamin D,25 Hydroxy 56.2 ng/mL
[2019-11-12] MEDS: lamoTRIgine 100 MG Tablet 200 MG PO ×2 (10:36→22:38)
--- NOTE | 2019-11-12 11:30 | RAD_ITS ---
STUDY: X-RAY - PELVIS AND RIGHT HIP REASON FOR EXAM: Female, 74 years old. IM RODDING TECHNIQUE: 3 views of the pelvis and hip. COMPARISON: None. FINDINGS: Intraoperative imaging provided for open reduction and internal fixation of the right intertrochanteric fracture utilizing intramedullary aura and compressive screw fixation. RAD/Hip Min 2 Views (Portable) IMPRESSION: Intraoperative imaging provided for open reduction and internal fixation of the right intertrochanteric fracture utilizing intramedullary aura and compression screw fixation device. Electronically Signed: Bello Calles, at 13:46 EDT , Service support ,
--- NOTE | 2019-11-12 11:43 | PN_ITS ---
<Edgard Garcia - Last Filed: 11/12/19 11:43> Patient Problems: Active and Suspected Problems Fall (Acute) Closed right hip fracture (Acute) Reason for Visit: hip fx Subjective: pt seen prior to surgery. C/o hip pain. No new numbness/tingling. No fever/chills. No SOB/CP. No nausea/vomiting. Vitals/I&O's: Vital Signs Temp Pulse Resp BP Pulse Ox 98.1 F 86 18 128/84 H 95 11/12/19 09:06 11/12/19 09:06 11/12/19 09:06 11/12/19 09:06 11/12/19 09:06 Oxygen Delivery Method Room Air Weight: 96 lb 1.945 oz Body Mass Index (BMI) 17.0 Intake and Output for Last 24 Hours 11/10/19 11/11/19 11/12/19 23:59 23:59 23:59 Output Total 675 / 675 Balance -675 / -675 General: Alert, Oriented x3, Cooperative HEENT: Atraumatic, PERRLA, EOMI, Normocephalic Neck: Supple, No JVD, Negative Carotid Bruits Lungs: Clear to auscultation, Normal air movement Cardiovascular: Regular rate, No murmurs Abdomen: Bowel Sounds Present, Soft, Non Tender Extremities: No edema, Capillary Refill Less than 3 Seconds Skin: No rashes, No breakdown Musculoskeletal: No Tenderness to Palpation of Joints or Extremities Neurological: - - resting tremor UE Psych/Mental Status: Normal Affect, Appropriate, Alert and oriented to time, place, person, mood and affect Laboratory Results 11/12/19 03:10: WBC 7.3, RBC 3.49 L, Hgb 9.4 L, Hct 30.5 L, MCV 87.4, MCH 26.9 L , MCHC 30.8 L, RDW Std Deviation 52.9 H, RDW Coeff of Young 16.4 H, Plt Count 447, MPV 8.6, Immature Gran % (Auto) 0.300, Neut % (Auto) 55.7, Lymph % (Auto) 33.3, [place] % (Auto) 9.5, Eos % (Auto) 0.0, Baso % (Auto) 1.2 H, Absolute Neuts (auto) 4.1, Absolute Lymphs (auto) 2.42, Nucleated RBC % 0 11/12/19 03:10: PT 12.6, INR 1.0 11/12/19 03:10: Sodium 140, Potassium 4.3, Chloride 105, Carbon Dioxide 29.0, Anion Gap 6, BUN 16, Creatinine 0.87, Estim Creat Clear Calc 44.55, Est GFR (MDRD) Af Amer 82, Est GFR (MDRD) Non-Af 68, BUN/Creatinine Ratio 18.4, Glucose 111 H, Calcium 8.7 11/12/19 03:10: Blood Type A POSITIVE, Antibody Screen NEGATIVE 11/12/19 03:10: Crossmatch See Detail 11/12/19 06:38: Vitamin B12 397, Vitamin D 25-Hydroxy 56.2 Current Medications Acetaminophen (Tylenol) 650 mg PO Q6H PRN PRN PRN Reason: Pain Score 1-10/Temp > 100.7 F Last Admin: 11/12/19 09:30 Dose: 650 mg Documented by: Albuterol Sulfate (Ventolin Aerosols) 2.5 mg INHALATION Q2H PRN PRN PRN Reason: SOB/WHEEZING Amlodipine Besylate (Norvasc) 10 mg PO DAILY [facility] Last Admin: 11/12/19 09:31 Dose: 10 mg Documented by: Cholecalciferol (Vitamin D (25mcg)) 2,000 unit PO BID [facility] Duloxetine HCl (Cymbalta) 30 mg PO DAILY [facility] Lactated Ringer's () 1,000 mls @ 50 mls/hr IV .Q20H [facility] Last Admin: 11/12/19 06:47 Dose: 50 mls/hr Documented by: Sodium Chloride () 250 mls @ 15 mls/hr IV .[id number] PRN PRN Reason: Saline Flush Sodium Chloride () 250 mls @ 15 mls/hr IV .[id number] PRN PRN Reason: Additional IVPB Infusion Lamotrigine (Lamictal) 200 mg PO BID [facility] Last Admin: 11/12/19 10:36 Dose: 200 mg Documented by: Levetiracetam (Keppra Tablet) 750 mg PO QHS [facility] Levetiracetam (Keppra Tablet) 500 mg PO DAILY [facility] Last Admin: 11/12/19 09:31 Dose: 500 mg Documented by: Losartan Potassium (Cozaar) 25 mg PO BID [facility] Last Admin: 11/12/19 09:31 Dose: 25 mg Documented by: Mirtazapine (Remeron) 30 mg PO QHS [facility] Morphine Sulfate () 1 mg IV Q3H PRN PRN PRN Reason: Pain Score 6-10/10 Last Admin: 11/12/19 11:05 Dose: 1 mg Documented by: Ondansetron HCl (Zofran) 4 mg IV Q8H PRN PRN PRN Reason: NAUSEA/VOMITING Oxycodone HCl (Oxyir) 5 mg PO Q4H PRN PRN PRN Reason: Pain Score 4-5/10 Last Admin: 11/12/19 09:30 Dose: 5 mg Documented by: Pantoprazole Sodium (Protonix) 40 mg PO DAILY [facility] Last Admin: 11/12/19 09:31 Dose: 40 mg Documented by: Senna/Docusate Sodium (Senokot-S, [place]-Colace) 2 tablet PO BID PRN PRN PRN Reason: Constipation Sodium Chloride () 10 - 40 ml IV UD PRN PRN Reason: SALINE FLUSH STROKE Vital Signs/Narrative: Vital Signs Temp Pulse Resp BP Pulse Ox 11/12/19 09:06 98.1 F 86 18 128/84 H 95 Medical Necessity - Tobacco Use Smoking Status: Current every day smoker Assessment/Plan All Active Problems Fall (Acute) Closed right hip fracture (Acute) 1. R intertroch fx 2/2 fall - ortho consulted. care as per ortho. Check AM CBC/BMP. Vit D level c/w sufficiency. 2. Hx Epilepsy - anti epileptics continued - keppra/lamictal 3. Hx HTN - continue home meds, BP well controlled at this time. 4. Hx Depression - cymbalta, remeron 5. Normocytic anemia - platelets normal. b12 normal, check iron/tibc. normocytic. DVT ppx: per ortho DC planning: SNF likely This patient was seen by Edgard Garcia PA-C under the supervision of Doctor Nataliya. <Nataliya,[place] - Last Filed: 11/12/19 15:43> Vitals/I&O's: Vital Signs Temp Pulse Resp BP Pulse Ox 98.6 F 85 22 H 147/60 H 100 11/12/19 14:30 09/17/20 14:30 11/12/19 14:30 11/12/19 14:30 11/12/19 15:05 Oxygen Flow Rate (L/min) 2 Oxygen Delivery Method Nasal Cannula Weight: 43.6 kg Body Mass Index (BMI) 17.0 Intake and Output for Last 24 Hours 11/10/19 11/11/19 11/12/19 23:59 23:59 23:59 Intake Total 110 / 110 Output Total 875 / 875 Balance -765 / -765 Laboratory Results 11/12/19 03:10: WBC 7.3, RBC 3.49 L, Hgb 9.4 L, Hct 30.5 L, MCV 87.4, MCH 26.9 L , MCHC 30.8 L, RDW Std Deviation 52.9 H, RDW Coeff of Young 16.4 H, Plt Count 447, MPV 8.6, Immature Gran % (Auto) 0.300, Neut % (Auto) 55.7, Lymph % (Auto) 33.3, [place] % (Auto) 9.5, Eos % (Auto) 0.0, Baso % (Auto) 1.2 H, Absolute Neuts (auto) 4.1, Absolute Lymphs (auto) 2.42, Nucleated RBC % 0 11/12/19 03:10: PT 12.6, INR 1.0 11/12/19 03:10: Sodium 140, Potassium 4.3, Chloride 105, Carbon Dioxide 29.0, Anion Gap 6, BUN 16, Creatinine 0.87, Estim Creat Clear Calc 44.55, Est GFR (MDRD) Af Amer 82, Est GFR (MDRD) Non-Af 68, BUN/Creatinine Ratio 18.4, Glucose 111 H, Calcium 8.7 11/12/19 03:10: Blood Type A POSITIVE, Antibody Screen NEGATIVE 11/12/19 03:10: Crossmatch See Detail 11/12/19 03:10: Iron 19 L, TIBC 333, Iron Saturation 5.7 L 11/12/19 06:38: Vitamin B12 397, Vitamin D 25-Hydroxy 56.2 11/12/19 15:00: COVID-19 (RANDI) Pending Current Medications Acetaminophen (Tylenol) 650 mg PO Q6H PRN PRN PRN Reason: Pain Score 1-10/Temp > 100.7 F Last Admin: 11/12/19 09:30 Dose: 650 mg Documented by: Albuterol Sulfate (Ventolin Aerosols) 2.5 mg INHALATION Q2H PRN PRN PRN Reason: SOB/WHEEZING Amlodipine Besylate (Norvasc) 10 mg PO DAILY [facility] Last Admin: 11/12/19 09:31 Dose: 10 mg Documented by: Cholecalciferol (Vitamin D (25mcg)) 2,000 unit PO BID [facility] Last Admin: 11/12/19 14:47 Dose: 2,000 unit Documented by: Duloxetine HCl (Cymbalta) 30 mg PO DAILY [facility] Last Admin: 11/12/19 14:47 Dose: 30 mg Documented by: Lactated Ringer's () 1,000 mls @ 50 mls/hr IV .Q20H [facility] Last Admin: 11/12/19 06:47 Dose: 50 mls/hr Documented by: Sodium Chloride () 250 mls @ 15 mls/hr IV .[id number] PRN PRN Reason: Saline Flush Sodium Chloride () 250 mls @ 15 mls/hr IV .[id number] PRN PRN Reason: Additional IVPB Infusion Cefazolin Sodium () 1 gm in 50 mls @ 150 mls/hr IV Q8H [facility] Stop: 11/13/19 04:19 Lamotrigine (Lamictal) 200 mg PO BID [facility] Last Admin: 11/12/19 10:36 Dose: 200 mg Documented by: Levetiracetam (Keppra Tablet) 750 mg PO QHS [facility] Levetiracetam (Keppra Tablet) 500 mg PO DAILY [facility] Last Admin: 11/12/19 09:31 Dose: 500 mg Documented by: Losartan Potassium (Cozaar) 25 mg PO BID [facility] Last Admin: 11/12/19 09:31 Dose: 25 mg Documented by: Mirtazapine (Remeron) 30 mg PO QHS [facility] Morphine Sulfate () 1 mg IV Q3H PRN PRN PRN Reason: Pain Score 6-10/10 Last Admin: 11/12/19 11:05 Dose: 1 mg Documented by: Ondansetron HCl (Zofran) 4 mg IV Q8H PRN PRN PRN Reason: NAUSEA/VOMITING Oxycodone HCl (Oxyir) 5 mg PO Q4H PRN PRN PRN Reason: Pain Score 4-5/10 Last Admin: 11/12/19 09:30 Dose: 5 mg Documented by: Pantoprazole Sodium (Protonix) 40 mg PO DAILY [facility] Last Admin: 11/12/19 09:31 Dose: 40 mg Documented by: Senna/Docusate Sodium (Senokot-S, [place]-Colace) 2 tablet PO BID PRN PRN PRN Reason: Constipation Sodium Chloride () 10 - 40 ml IV UD PRN PRN Reason: SALINE FLUSH STROKE Vital Signs/Narrative: Vital Signs Temp Pulse Resp BP Pulse Ox 11/12/19 15:05 100 11/12/19 14:30 98.6 F 85 22 H 147/60 H 98 11/12/19 14:08 98.1 F 84 16 140/67 H 100 11/12/19 14:00 79 16 148/67 H 93 11/12/19 13:45 87 16 161/83 H 96 11/12/19 13:31 97.7 F L 89 16 166/86 H 999 Assessment/Plan This patient was seen in conjunction with DAVID Dhillon. I have independently interviewed and examined the patient and reviewed pertinent historical, laboratory, and other data. Please refer to DAVID Dhillon note for his patient's presentation, findings, and recommendations. I have reviewed and his note and concur with his documentation Patient was seen and examined. She complains of pain in her hip. She was going for surgery. No acute events overnight. Physical Exam: Gen: Looks in some discomfort, not pale, not jaundiced CVS:HS I +II, regular, no murmurs RESP: Diminished at lung bases GI: BS present and normal, soft, nontender, no palpable organs EXT:No edema ASSESSMENT: 1. Right intertrochanteric hip fracture secondary to mechanical fall, history of previous fractures 2. Epilepsy, continue Keppra and Lamictal 3. Hypertension 4. Depression 5. Anemia 6. Suspected osteoporosis Plan: Follow-up with orthopedic surgery recommendations after surgery Continue with pain control Check Keppra and Lamictal levels stat Continue with pain control Inpatient E&M: 75314 Subs Hosp L2
--- NOTE | 2019-11-12 12:17 | PCM.CONS.GEN ---
Reason for Consult Date of Consultation: 11/12/19 Reason for Consultation: Right hip pain. Requested by Dr. Leyva History of Present Illness: The patient is a 74 year old F multiple medical comorbidities including seizures presents today with right hip pain. Patient did have a previous intertrochanteric hip fracture on the left which did have screw cut out and now she has a hemiarthroplasty. Patient reports she was no longer using a walker or cane around the house. She was walking from the bathroom last evening when she fell coming around the corner. She now reports pain in her right hip and groin area. 8 out of 10. Worse with motion, better with immobilization. Some mild associated tingling in that area. She is unable to bear weight. I did speak with her family on the phone earlier today and explained treatment options. It is a deep achy pain. Past Medical History Past Medical History (Chronic Problems): Chronic Problems Seizure (Chronic) History of seizures (Chronic) History of hypertension (Chronic) Allergies diltiazem Allergy (Verified 11/12/19 06:37) Unknown gabapentin Allergy (Verified 11/12/19 06:37) SEVERE LEG SWELLING hydrochlorothiazide [From Dyazide] Allergy (Verified 11/12/19 06:37) Unknown metoprolol Allergy (Verified 11/12/19 06:37) Unknown phenytoin [From Dilantin] Allergy (Verified 11/12/19 06:37) TREMORS/TWITCHING triamterene Allergy (Verified 11/12/19 06:37) Unknown ciprofloxacin [From Cipro] Adverse Reaction (Verified 11/12/19 06:37) Other Home Medications: Ambulatory Orders Medication Instructions Recorded Amlodipine [Norvasc] 10 mg PO DAILY 11/09/15 Losartan Potassium 25 mg PO BID 11/09/15 Albuterol Inhaler [Ventolin Hfa] 2 puff INHALATION Q4H PRN PRN #1 03/24/16 inhaler Cholecalciferol (Vitamin D3) 2,000 unit PO BID 02/19/17 [Vitamin D3] Lamotrigine [Lamictal] 200 mg PO BID 02/19/17 Pantoprazole Sodium 40 mg PO DAILY 02/19/17 Levetiracetam [Keppra] 750 mg PO QHS 11/06/17 levETIRAcetam tablet [Keppra 500 mg PO DAILY 11/06/17 tablet] Duloxetine Hcl [Cymbalta] 30 mg PO DAILY 09/27/18 Mirtazapine [Remeron] 30 mg PO QHS 11/12/19 Surgical History: total hip arthroplasty, tonsillectomy, - - left hip pinning; 2 C-sections Smoking Status: Current every day smoker - *Family History Sibling History Items: Diabetes, Heart Disease Review of Systems Constitutional: Reports: Anorexia, - - Cachexia HEENT: Reports: Difficulty Hearing Cardiovascular: Denies: Chest Pain Respiratory: Denies: Cough Gastrointestinal: Denies: Abdominal Pain Genitourinary: Denies: Dysuria Musculoskeletal: Reports: Joint Pain, Joint Tenderness Skin: Denies: Rash Neurological: Reports: Balance problems, Seizures Psychiatric: Denies: Homicidal Ideations Patient Problems: Active and Suspected Problems Fall (Acute) Closed right hip fracture (Acute) Objective: Ankle and hip radiographs were reviewed these reveal a displaced intertrochanteric hip fracture on the right. Ankle shows no acute fractures. - Physical Exam Vitals/I&O's: Vital Signs Temp Pulse Resp BP Pulse Ox 98.1 F 86 18 128/84 H 95 11/12/19 09:06 11/12/19 09:06 11/12/19 09:06 11/12/19 09:06 11/12/19 09:06 Oxygen Delivery Method Room Air Weight: 96 lb 1.945 oz Body Mass Index (BMI) 17.0 Intake and Output for Last 24 Hours 11/10/19 11/11/19 11/12/19 23:59 23:59 23:59 Output Total 675 / 675 Balance -675 / -675 General: Alert, Cooperative Neck: No JVD Lungs: - - Nonlabored breathing Cardiovascular: - - Regular pulse rate Abdomen: Non-Distended Extremities: - - Right lower extremity: Skin clean, dry, and intact. Limb is shortened and externally rotated Motor is intact dorsiflexion, EHL and plantar flexion. Sensation is intact to light touch saphenous, george,l superficial peroneal, deep peroneal and tibial distributions. Calves are soft and supple. Laboratory Results 11/12/19 03:10: WBC 7.3, RBC 3.49 L, Hgb 9.4 L, Hct 30.5 L, MCV 87.4, MCH 26.9 L, MCHC 30.8 L, RDW Std Deviation 52.9 H, RDW Coeff of Young 16.4 H, Plt Count 447, MPV 8.6, Immature Gran % (Auto) 0.300, Neut % (Auto) 55.7, Lymph % (Auto) 33.3, [place] % (Auto) 9.5, Eos % (Auto) 0.0, Baso % (Auto) 1.2 H, Absolute Neuts (auto) 4.1, Absolute Lymphs (auto) 2.42, Nucleated RBC % 0 11/12/19 03:10: PT 12.6, INR 1.0 11/12/19 03:10: Sodium 140, Potassium 4.3, Chloride 105, Carbon Dioxide 29.0, Anion Gap 6, BUN 16, Creatinine 0.87, Estim Creat Clear Calc 44.55, Est GFR (MDRD) Af Amer 82, Est GFR (MDRD) Non-Af 68, BUN/Creatinine Ratio 18.4, Glucose 111 H, Calcium 8.7 11/12/19 03:10: Blood Type A POSITIVE, Antibody Screen NEGATIVE 11/12/19 03:10: Crossmatch See Detail 11/12/19 03:10: Iron Pending, TIBC Pending, Iron Saturation Pending 11/12/19 06:38: Vitamin B12 397, Vitamin D 25-Hydroxy 56.2 Current Medications Acetaminophen (Tylenol) 650 mg PO Q6H PRN PRN PRN Reason: Pain Score 1-10/Temp > 100.7 F Last Admin: 11/12/19 09:30 Dose: 650 mg Documented by: Albuterol Sulfate (Ventolin Aerosols) 2.5 mg INHALATION Q2H PRN PRN PRN Reason: SOB/WHEEZING Amlodipine Besylate (Norvasc) 10 mg PO DAILY [facility] Last Admin: 11/12/19 09:31 Dose: 10 mg Documented by: Cholecalciferol (Vitamin D (25mcg)) 2,000 unit PO BID [facility] Duloxetine HCl (Cymbalta) 30 mg PO DAILY [facility] Lactated Ringer's () 1,000 mls @ 50 mls/hr IV .Q20H [facility] Last Admin: 11/12/19 06:47 Dose: 50 mls/hr Documented by: Sodium Chloride () 250 mls @ 15 mls/hr IV .[id number] PRN PRN Reason: Saline Flush Sodium Chloride () 250 mls @ 15 mls/hr IV .[id number] PRN PRN Reason: Additional IVPB Infusion Lamotrigine (Lamictal) 200 mg PO BID [facility] Last Admin: 11/12/19 10:36 Dose: 200 mg Documented by: Levetiracetam (Keppra Tablet) 750 mg PO QHS [facility] Levetiracetam (Keppra Tablet) 500 mg PO DAILY [facility] Last Admin: 11/12/19 09:31 Dose: 500 mg Documented by: Losartan Potassium (Cozaar) 25 mg PO BID [facility] Last Admin: 11/12/19 09:31 Dose: 25 mg Documented by: Mirtazapine (Remeron) 30 mg PO QHS [facility] Morphine Sulfate () 1 mg IV Q3H PRN PRN PRN Reason: Pain Score 6-10/10 Last Admin: 11/12/19 11:05 Dose: 1 mg Documented by: Ondansetron HCl (Zofran) 4 mg IV Q8H PRN PRN PRN Reason: NAUSEA/VOMITING Oxycodone HCl (Oxyir) 5 mg PO Q4H PRN PRN PRN Reason: Pain Score 4-5/10 Last Admin: 11/12/19 09:30 Dose: 5 mg Documented by: Pantoprazole Sodium (Protonix) 40 mg PO DAILY [facility] Last Admin: 11/12/19 09:31 Dose: 40 mg Documented by: Senna/Docusate Sodium (Senokot-S, Payton-Colace) 2 tablet PO BID PRN PRN PRN Reason: Constipation Sodium Chloride () 10 - 40 ml IV UD PRN PRN Reason: SALINE FLUSH Assessment/Plan All Active Problems Fall (Acute) Closed right hip fracture (Acute) Spoke with the patient today as well as the daughter on the phone. Patient has a right intertrochanteric hip fracture. Natural history of the disease process and treatment options were discussed with the patient and family. At this time I recommended a cephalo-medullary nail for the intertrochanteric hip fracture. Risks and benefits of the procedure were discussed the patient including but not limited to blood loss, DVTs, PEs, nervous damage, infection, the risk of anesthesia include loss of life. We also discussed nonunion, malunion and screw cut out. Patient demonstrates an understanding wishes to proceed. They are able to sign informed consent. Family is also on board with the plan. We will proceed with surgery this afternoon. Antibiotics on-call to the operating room. [facility] Office:
[2019-11-12 12:21] LABS: Iron 19 ug/dL (50-170); Iron Binding Capacity,Total 333 ug/dL (250-450); PERCENT IRON SATURATION 5.7 % (15.0-55.0)
--- NOTE | 2019-11-12 12:29 | OP.PCM_ITS ---
Report of Operation Date of Procedure: 11/12/19 Pre-Operative Diagnosis: Right intertrochanteric hip fracture Post-Operative Diagnosis: Right intertrochanteric hip fracture Surgery/Procedure Performed:: Right hip cephalo-medullary nail Description of Surgical Findings:: stable reduction bilingual teacher assistant: None Type of Anesthesia:: General Anesthesiologist: Jeevan Mai Special Medications: 2 g Ancef Estimated Blood Loss (mL): 125 Fluids Replaced: 900 ml crystalloid Description of Procedure: Components used: 1. [employer] InterTAN nail short 125 degree neck angle, 11.5 mm 2. [employer] InterTAN lag screw 80mm 3. [employer] 27.5 millimeter interlocking screw Brief history operative indications: 74-year-old female who presents today with right intertrochanteric hip fracture status post mechanical fall. After extensive discussion including risk and benefits which include but are not limited to blood loss, PEs, DVTs, neurovascular damage, nonunions, malunions and screw cut out patient has elected to proceed with a right cephalo-medullary nail. Procedure: On the date of the procedure the patient's right hip was marked in the preoperative area and patient was taken back to the operating room. Anesthetic was administered and patient was transferred to the table were all bony prominence identified well-padded and the ipsilateral arm was placed across the chest. Patient was then translated down to the perineal post and the operative leg was placed in the boot while the nonoperative leg was lowered and secured. The operative leg was placed in traction and internal rotation and live fluoroscopy was used to verify adequate reduction. The operative leg was then prepped in a sterile fashion with chlorhexidine while the surgeon scrubbed. Upon reentering the room the operative extremity was draped in the standard orthopedic fashion. Skin incision was marked and a timeout was called. Everyone agreed upon the side, the site, the procedure be performed, patient's identity, and antibiotics given. Skin incision was made and the position of the entry guidepin was verified using live fluoroscopy. Once we were satisfied with our position the pin was advanced in the soft tissue protector was placed over the pin. The entry reamer was then advanced into the proximal portion of the femur. A guidewire was placed down the intramedullary canal and fluoroscopy was used to verify that the anterior cortex had not been breached distally as well as satisfactory distal positioning. We then used live fluoroscopy to verify the length of the nail and a [employer]AN short 11.5 mm 125 degree neck angle hip nail was selected. The 13 mm reamer was then passed. The nail was then attached to the liquor gallery operator and inserted into the intramedullary canal. The appropriate depth was verified and the skin incision for the lag screw was made. The lag screw guidepin was then placed under live fluoroscopy and when a satisfactory position was obtained the length of the screw was measured and the standard technique to drill for the lag screws was performed. The anti-rotation bar was used. At this time a 80mm lag screw was selected with its corresponding compression screw. The lag screw was then passed and traction was left off the leg. The compression screw was then passed and the fracture was compressed. The final position of the lag screw was verified under fluoroscopy. Attention was then turned to the distal portion of the nail and the distal guide technique was used to locate the distal interlocking screw and a 27.5mm distal interlocking screw was placed using this technique. Live fluoroscopy was used to verify the position of the interlocking screw and the final position of the hip components. Once we were satisfied with our positioning the wounds were copiously irrigated out with normal saline skin was closed with 2-0 Vicryl and paola for final skin closure. A sterile dressing was placed with Xeroform. Patient was then awakened by anesthesia transferred from the fracture table back to their hospital bed and transferred to the PACU for recovery. Postoperative plan: Patient will be weight-bear as tolerated. DVT prophylaxis per primary service with knee-high stockings. Follow up in the office in 2 weeks. - Complications No intraoperative complications - Admit VTE Documentation VTE Present on Admission: No VTE Mechan Device Prophylaxis: SCD's, Thigh High KULDEEP Hose VTE Pharm Prophylaxis ordered?: Yes
[2019-11-12] MEDS: Cefazolin 2 GM in 0.9% Normal Saline 100 ML IV (12:36)
--- NOTE | 2019-11-12 13:47 | RAD_ITS ---
STUDY: X-RAY - PELVIS AND RIGHT HIP REASON FOR EXAM: Female, 74 years old. POST OP TECHNIQUE: 2 views of the pelvis and hip. COMPARISON: None. FINDINGS: The patient is status post open reduction and internal fixation of the right intratrochanteric fracture utilizing intramedullary aura fixation and decompressive screw device. There is good alignment. Postoperative soft tissue changes. Prior left total hip replacement. RAD/Hip Min 2 Views (Portable) IMPRESSION: Status post open reduction and internal fixation of the right intertrochanteric fracture utilizing an intramedullary aura fixation device and compression screw fixation. Good alignment. Electronically Signed: Bello Calles, at 15:17 EDT , Service support ,
[2019-11-12] MEDS: DULoxetine Hcl 30 MG Capsule PO (14:47)
[2019-11-12] MEDS: Sodium Ferric Gluconat 250 MG in 0.9% Normal Saline 250 ML 135 MG IV (17:27)
--- NOTE | 2019-11-12 18:07 | NURSING ---
Pt up to chair x2 assist with walker. First time out of bed post op. No complications.
[2019-11-12] MEDS: 0.9% Saline Lock 10 ML Syringe IV (18:11)
[2019-11-12] MEDS: Cefazolin 1 GM/50 ML BAG IV (19:53)
[2019-11-12] MEDS: Mirtazapine 30 MG Tablet PO (22:39)
[2019-11-12] MEDS: levETIRAcetam 750 MG Tablet PO (22:39)
[2019-11-13] VITALS (19 sets, daily range): BP systolic 125–174; BP diastolic 56–82; PULSE 76–92; RESP 16–20; TEMP 36.6–37.7; O2SAT 91–98; BMI 17.0
[2019-11-13] MEDS: Lactated Ringers 1,000 ML 50 ML IV (03:35)
[2019-11-13] MEDS: Cefazolin 1 GM/50 ML BAG IV (03:36)
[2019-11-13] MEDS: Acetaminophen 325 MG Tablet 650 MG PO ×2 (06:13→22:19)
[2019-11-13 06:19] LABS: Absolute Lymphocyte Count 1.26 X10^3/uL (0.83-4.51); Absolute Neutrophil Count 6.3 X10^3/uL (2.0-7.7); Basophil# 0.03 X10^3/uL; Basophil% 0.3 % (0-1); Eosinophil# 0.11 X10^3/uL; Eosinophils% 1.2 % (0-5); Lymphocyte # 1.26 X10^3/ul (4.0); Lymphocyte % 14.1 % (19-41); Mean Corp Hgb Conc 30.4 g/dL (32-36); Mean Corpuscular Hgb 26.7 pg (27.0-32.0); Mean Corpuscular Volume 87.8 fL (81-99); Mean Platelet Vol. 8.4 fl (6.2-12.0); Monocyte# 1.19 X10^3/uL; Monocyte% 13.3 % (0-10); NRBC Flagged by Analyzer 0 % (0-5); Neutrophil # 6.33 X10^3/uL (2.7-7.7); Neutrophil % 70.9 % (47-70); POSITIVE MORPHOLOGY YES; Platelet Count 299 K/mm3 (150-450); RBC Distribution Width CV 16.1 % (11.6-14.6); RBC Distribution Width SD 52.1 fl (35.1-43.9); Red Blood Count 2.62 M/mm3 (4.2-5.4); White Blood Count 8.9 K/mm3 (4.4-11.0)
[2019-11-13 06:35] LABS: Anion Gap 5 (5-15); BUN 12 mg/dL (7-18); BUN/Creat Ratio 16.7 RATIO (10-20); Calcium,Total 8.2 mg/dL (8.5-10.1); Chloride 105 mmol/L (98-107); Creatinine, Serum 0.72 mg/dL (0.55-1.02); EST Glomerular Filtration Rate 85 mL/min (>60); Est Glom Filt Rate - Afr Amer 103 mL/min (>60); Estimated Creatinine Clearance 34.49 ml/min; Glucose 94 mg/dL (74-106); Potassium 4.6 mmol/L (3.5-5.1); Sodium Level 138 mmol/L (136-145)
[2019-11-13 06:46] LABS: Differential Indicated SCAN CRITERIA MET
[2019-11-13 06:48] LABS: Differential Comment SCANNED
--- NOTE | 2019-11-13 08:02 | PN_ITS ---
Patient Problems: Active and Suspected Problems Fall (Acute) Closed right hip fracture (Acute) Vitals/I&O's: Vital Signs Temp Pulse Resp BP Pulse Ox 99.2 F H 81 16 174/57 H 91 11/13/19 06:00 11/13/19 06:00 11/13/19 06:00 11/13/19 06:00 11/13/19 06:47 Oxygen Flow Rate (L/min) 2 Oxygen Delivery Method Nasal Cannula Weight: 43.6 kg Body Mass Index (BMI) 17.0 Intake and Output for Last 24 Hours 11/11/19 11/12/19 11/13/19 23:59 23:59 23:59 Intake Total 965.83 / 965.83 514.17 / 514.17 Output Total 1425 / 1425 200 / 200 Balance -459.17 / -459.17 314.17 / 314.17 Laboratory Results 11/12/19 03:10: Crossmatch See Detail 11/12/19 03:10: Iron 19 L, TIBC 333, Iron Saturation 5.7 L 11/12/19 06:38: Vitamin B12 397, Vitamin D 25-Hydroxy 56.2 11/12/19 15:00: COVID-19 (RANDI) Negative 11/12/19 16:41: Lamotrigine Pending, Levetiracetam Pending 11/13/19 06:00: WBC 8.9, RBC 2.62 L, Hgb 7.0 L, Hct 23.0 L, MCV 87.8, MCH 26.7 L , MCHC 30.4 L, RDW Std Deviation 52.1 H, RDW Coeff of Young 16.1 H, Plt Count 299, MPV 8.4, Immature Gran % (Auto) 0.200, Neut % (Auto) 70.9 H, Lymph % (Auto) 14.1 L, [place] % (Auto) 13.3 H, Eos % (Auto) 1.2, Baso % (Auto) 0.3, Absolute Neuts (auto) 6.3, Absolute Lymphs (auto) 1.26, Nucleated RBC % 0, Differential Comment SCANNED 11/13/19 06:00: Sodium 138, Potassium 4.6, Chloride 105, Carbon Dioxide 28.0, Anion Gap 5, BUN 12, Creatinine 0.72, Estim Creat Clear Calc 34.49, Est GFR (MDRD) Af Amer 103, Est GFR (MDRD) Non-Af 85, BUN/Creatinine Ratio 16.7, Glucose 94, Calcium 8.2 L Current Medications Acetaminophen (Tylenol) 650 mg PO Q6H PRN PRN PRN Reason: Pain Score 1-10/Temp > 100.7 F Last Admin: 11/13/19 06:13 Dose: 650 mg Documented by: Albuterol Sulfate (Ventolin Aerosols) 2.5 mg INHALATION Q2H PRN PRN PRN Reason: SOB/WHEEZING Amlodipine Besylate (Norvasc) 10 mg PO DAILY [facility] Last Admin: 11/12/19 09:31 Dose: 10 mg Documented by: Cholecalciferol (Vitamin D (25mcg)) 2,000 unit PO BID [facility] Last Admin: 11/12/19 22:38 Dose: 2,000 unit Documented by: Duloxetine HCl (Cymbalta) 30 mg PO DAILY [facility] Last Admin: 11/12/19 14:47 Dose: 30 mg Documented by: Lactated Ringer's () 1,000 mls @ 50 mls/hr IV .Q20H [facility] Last Admin: 11/13/19 03:35 Dose: 50 mls/hr Documented by: Sodium Chloride () 250 mls @ 15 mls/hr IV .[id number] PRN PRN Reason: Saline Flush Sodium Chloride () 250 mls @ 15 mls/hr IV .[id number] PRN PRN Reason: Additional IVPB Infusion Ferric Sodium Gluconate Complex 250 mg/ Sodium Chloride 270 mls @ 135 mls/hr IV DAILY [facility] Stop: 11/14/19 11:59 Last Infusion: 11/12/19 19:49 Dose: Infused Documented by: Lamotrigine (Lamictal) 200 mg PO BID [facility] Last Admin: 11/12/19 22:38 Dose: 200 mg Documented by: Levetiracetam (Keppra Tablet) 750 mg PO QHS [facility] Last Admin: 11/12/19 22:39 Dose: 750 mg Documented by: Levetiracetam (Keppra Tablet) 500 mg PO DAILY [facility] Last Admin: 11/12/19 09:31 Dose: 500 mg Documented by: Losartan Potassium (Cozaar) 25 mg PO BID [facility] Last Admin: 11/12/19 22:39 Dose: 25 mg Documented by: Mirtazapine (Remeron) 30 mg PO QHS [facility] Last Admin: 11/12/19 22:39 Dose: 30 mg Documented by: Morphine Sulfate () 1 mg IV Q3H PRN PRN PRN Reason: Pain Score 6-10/10 Last Admin: 11/12/19 18:11 Dose: 1 mg Documented by: Ondansetron HCl (Zofran) 4 mg IV Q8H PRN PRN PRN Reason: NAUSEA/VOMITING Oxycodone HCl (Oxyir) 5 mg PO Q4H PRN PRN PRN Reason: Pain Score 4-5/10 Last Admin: 11/12/19 20:00 Dose: 5 mg Documented by: Pantoprazole Sodium (Protonix) 40 mg PO DAILY [facility] Last Admin: 11/12/19 09:31 Dose: 40 mg Documented by: Senna/Docusate Sodium (Senokot-S, Payton-Colace) 2 tablet PO BID PRN PRN PRN Reason: Constipation Sodium Chloride () 10 - 40 ml IV UD PRN PRN Reason: SALINE FLUSH Last Admin: 11/12/19 18:11 Dose: 10 ml Documented by: STROKE Vital Signs/Narrative: Vital Signs Temp Pulse Resp BP Pulse Ox 11/13/19 06:47 91 11/13/19 06:00 99.2 F H 81 16 174/57 H 93 Medical Necessity - Tobacco Use Smoking Status: Current every day smoker Assessment/Plan All Active Problems Fall (Acute) Closed right hip fracture (Acute)
[2019-11-13 08:38] LABS: Hematocrit 21.7 % (37-47); Hemoglobin 6.7 g/dL (12.0-15.0)
[2019-11-13] MEDS: amLODIPine 10 MG Tablet PO (11:36)
[2019-11-13] MEDS: Losartan Potassium 25 MG Tablet PO ×2 (11:36→22:18)
[2019-11-13] MEDS: lamoTRIgine 100 MG Tablet 200 MG PO ×2 (11:36→22:19)
[2019-11-13] MEDS: Pantoprazole Sodium 40 MG Tablet PO (11:37)
[2019-11-13] MEDS: DULoxetine Hcl 30 MG Capsule PO (11:37)
[2019-11-13] MEDS: levETIRAcetam 500 MG Tablet PO (11:37)
--- NOTE | 2019-11-13 11:41 | NT.THERAPY_ITS ---
Nutrition Therapy Report - History Nutrition Services has been consulted to:: Manage nutrient details of diet order Current diet / nutrition support order:: NPO - Anthropometric Measurements Height:: 5 ft 3 in Weight:: 43.6 kg Body Mass Index (BMI):: 17.0 - Relevant Labs Relevant Labs:: RBC 2.62 M/mm3 (4.2-5.4) L 11/13/19 06:00 Hgb 6.7 g/dL (12.0-15.0) L 11/13/19 08:28 Hct 21.7 % (37-47) L 11/13/19 08:28 MCH 26.7 pg (27.0-32.0) L 11/13/19 06:00 MCHC 30.4 g/dL (32-36) L 11/13/19 06:00 RDW Std Deviation 52.1 fl (35.1-43.9) H 11/13/19 06:00 RDW Coeff of Young 16.1 % (11.6-14.6) H 11/13/19 06:00 Neut % (Auto) 70.9 % (47-70) H 11/13/19 06:00 Lymph % (Auto) 14.1 % (19-41) L 11/13/19 06:00 [place] % (Auto) 13.3 % (0-10) H 11/13/19 06:00 Baso % (Auto) 1.2 % (0-1) H 11/12/19 03:10 Glucose 111 mg/dL (74-106) H 11/12/19 03:10 Calcium 8.2 mg/dL (8.5-10.1) L 11/13/19 06:00 Iron 19 ug/dL (50-170) L 11/12/19 03:10 Iron Saturation 5.7 % (15.0-55.0) L 11/12/19 03:10 - Assessment Food / Nutrition-Related History:: Pt states Regular diet at home - denies issues eating/swallowing 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 Pt on Remeron. Pt remains NPO d/t coughing/difficulty swallowing - followed by BALING MACHINE TENDER. [ End ] - Nutrition Diagnosis Problem / Etiology / Signs & Symptoms (PES):: Pt with malnutrition r/t questionable po intake in past year AEB wt loss and fat/muscle loss. Evidence of Malnutrition Exists:: Yes Severe PCM:: Chronic Illness - Nutrition Intervention Nutrition Prescription:: [id number] carlie / 50-65 gm pro / day - Food / Nutrient Delivery Interventions Summary of nutrition intervention:: As medically able, rec MARIA LUZ to liberal Regular w/ ONS at meals for increased nutrition if consumed. If unable to resume po diet within 3 days - rec supplemental nutrition support if in accord ance w/ pt/family wishes. [ End ] Nutrition education provided?: No - MNT Monitoring Further MNT monitoring and evaluation required?: Yes MNT Follow-up in:: 1-2 days - if questions/concerns please call RD/LD x [phone]
--- NOTE | 2019-11-13 11:59 | PCM.PN.ORT ---
Patient Problems: Active and Suspected Problems Fall (Acute) Closed right hip fracture (Acute) Subjective: The patient was sitting in the patient was sitting in bed upon examination. Patient denies chest pain, shortness of breath, dizziness, lightheadedness, nausea, vomiting or calf pain. Pain is controlled on medications. The patient is upset because she is unsure why she is unable to go home. 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 No adverse events overnight. Objective: Vital signs stable. Patient has an increased temperature of 99.2. Patient is on 3L of oxygen. She denies the use of oxygen at home. Patient is able to plantar flex and dorsiflex actively. Sensation is intact to light touch to saphenous, sural, superficial and deep peroneal and tibial nerve distributions. Dressing is clean, dry and intact. Negative Homans bilaterally. Negative signs and symptoms of DVT. - Physical Exam Vitals/I&O's: Vital Signs Temp Pulse Resp BP Pulse Ox 99.2 F H 76 20 H 141/61 H 92 11/13/19 11:21 11/13/19 11:21 11/13/19 11:21 11/13/19 11:21 11/13/19 11:21 Oxygen Flow Rate (L/min) 3 Oxygen Delivery Method Nasal Cannula Weight: 43.6 kg Body Mass Index (BMI) 17.0 Intake and Output for Last 24 Hours 11/11/19 11/12/19 11/13/19 23:59 23:59 23:59 Intake Total 965.83 / 965.83 514.17 / 514.17 Output Total 1425 / 1425 200 / 200 Balance -459.17 / -459.17 314.17 / 314.17 General: Alert, Oriented x3 - The patient is frustrated because she states she needs to go home so she can care for her son and daughter who are in wheelchairs. Skin: Incision - Right hip Laboratory Results 11/12/19 03:10: Crossmatch See Detail 11/12/19 03:10: Iron 19 L, TIBC 333, Iron Saturation 5.7 L 11/12/19 15:00: COVID-19 (RANDI) Negative 11/12/19 16:41: Lamotrigine Pending, Levetiracetam Pending 11/13/19 06:00: WBC 8.9, RBC 2.62 L, Hgb 7.0 L, Hct 23.0 L, MCV 87.8, MCH 26.7 L, MCHC 30.4 L, RDW Std Deviation 52.1 H, RDW Coeff of Young 16.1 H, Plt Count 299, MPV 8.4, Immature Gran % (Auto) 0.200, Neut % (Auto) 70.9 H, Lymph % (Auto) 14.1 L, [place] % (Auto) 13.3 H, Eos % (Auto) 1.2, Baso % (Auto) 0.3, Absolute Neuts (auto) 6.3, Absolute Lymphs (auto) 1.26, Nucleated RBC % 0, Differential Comment SCANNED 11/13/19 06:00: Sodium 138, Potassium 4.6, Chloride 105, Carbon Dioxide 28.0, Anion Gap 5, BUN 12, Creatinine 0.72, Estim Creat Clear Calc 34.49, Est GFR (MDRD) Af Amer 103, Est GFR (MDRD) Non-Af 85, BUN/Creatinine Ratio 16.7, Glucose 94, Calcium 8.2 L 11/13/19 08:28: Hgb 6.7 L, Hct 21.7 L Current Medications Acetaminophen (Tylenol) 650 mg PO Q6H PRN PRN PRN Reason: Pain Score 1-10/Temp > 100.7 F Last Admin: 11/13/19 06:13 Dose: 650 mg Documented by: Albuterol Sulfate (Ventolin Aerosols) 2.5 mg INHALATION Q2H PRN PRN PRN Reason: SOB/WHEEZING Amlodipine Besylate (Norvasc) 10 mg PO DAILY [facility] Last Admin: 11/13/19 11:36 Dose: 10 mg Documented by: Cholecalciferol (Vitamin D (25mcg)) 2,000 unit PO BID [facility] Last Admin: 11/13/19 11:36 Dose: 2,000 unit Documented by: Duloxetine HCl (Cymbalta) 30 mg PO DAILY [facility] Last Admin: 11/13/19 11:37 Dose: 30 mg Documented by: Lactated Ringer's () 1,000 mls @ 50 mls/hr IV .Q20H [facility] Last Admin: 11/13/19 03:35 Dose: 50 mls/hr Documented by: Sodium Chloride () 250 mls @ 15 mls/hr IV .[id number] PRN PRN Reason: Saline Flush Sodium Chloride () 250 mls @ 15 mls/hr IV .[id number] PRN PRN Reason: Additional IVPB Infusion Ferric Sodium Gluconate Complex 250 mg/ Sodium Chloride 270 mls @ 135 mls/hr IV DAILY [facility] Stop: 11/14/19 11:59 Last Infusion: 11/12/19 19:49 Dose: Infused Documented by: Lamotrigine (Lamictal) 200 mg PO BID [facility] Last Admin: 11/13/19 11:36 Dose: 200 mg Documented by: Levetiracetam (Keppra Tablet) 750 mg PO QHS [facility] Last Admin: 11/12/19 22:39 Dose: 750 mg Documented by: Levetiracetam (Keppra Tablet) 500 mg PO DAILY [facility] Last Admin: 11/13/19 11:37 Dose: 500 mg Documented by: Losartan Potassium (Cozaar) 25 mg PO BID [facility] Last Admin: 11/13/19 11:36 Dose: 25 mg Documented by: Mirtazapine (Remeron) 30 mg PO QHS [facility] Last Admin: 11/12/19 22:39 Dose: 30 mg Documented by: Morphine Sulfate () 1 mg IV Q3H PRN PRN PRN Reason: Pain Score 6-10/10 Last Admin: 11/12/19 18:11 Dose: 1 mg Documented by: Ondansetron HCl (Zofran) 4 mg IV Q8H PRN PRN PRN Reason: NAUSEA/VOMITING Oxycodone HCl (Oxyir) 5 mg PO Q4H PRN PRN PRN Reason: Pain Score 4-5/10 Last Admin: 11/12/19 20:00 Dose: 5 mg Documented by: Pantoprazole Sodium (Protonix) 40 mg PO DAILY [facility] Last Admin: 11/13/19 11:37 Dose: 40 mg Documented by: Senna/Docusate Sodium (Senokot-S, Payton-Colace) 2 tablet PO BID PRN PRN PRN Reason: Constipation Sodium Chloride () 10 - 40 ml IV UD PRN PRN Reason: SALINE FLUSH Last Admin: 11/12/19 18:11 Dose: 10 ml Documented by: Medical Necessity - Tobacco Use Smoking Status: Current every day smoker Assessment/Plan All Active Problems Fall (Acute) Closed right hip fracture (Acute) 1. Status post right hip cephalo-medullary nail post operative day #1. 2. Continue pain medications: Per medicine 3. DVT prophylaxis: Per medicine 4. PT/OT: Patient is to be toe-touch weightbearing for 2 weeks followed by partial weightbearing for 4 weeks. 5. H & H: 6.7/21.7, asymptomatic. 6. Encouraged incentive spirometry. 8. Continue postoperative medical management per medicine. 9: Postoperative drainage: Dressing is clean, dry and intact. 9. Disposition: Orthopedically stable. Okay for discharge when medically ready. Patient will require 2-week follow-up with [place] [facility] [place] for x-rays and incision check. Continue with pain medications per medicine. The patient is to remain toe-touch weightbearing for 2 weeks. At the 2 week follow-up we will discuss progressing her to partial weightbearing for 4 weeks. The patient will continue with the dressing for 5 days postoperatively. She may remove the dressing in 5 days and at that time may gently use soap and water of the incisions. She is not to place any ointments, Neosporin, salves, alcohol pads on the incision for 6 weeks. She should ambulate with the use of a walker. The patient will require postoperative physical therapy. Please contact with orthopedics and sports medicine with any questions or concerns. Appreciate the consult and helping with management of the patient.
--- NOTE | 2019-11-13 12:08 | PCM.PN.HOSP ---
<Edgard Garcia - Last Filed: 11/13/19 12:08> Patient Problems: Active and Suspected Problems Fall (Acute) Closed right hip fracture (Acute) Reason for Visit: hip fx Subjective: Pain controlled. No fever/chills. No SOB/cough. No nausea vomiting. Pt with ongoing swallowing issues. Pt very upset about dietary modifications and speech therapy and does not believe us when we attempt to discuss her swallowing issues. Vitals/I&O's: Vital Signs Temp Pulse Resp BP Pulse Ox 99.2 F H 76 20 H 141/61 H 92 11/13/19 11:21 11/13/19 11:21 11/13/19 11:21 11/13/19 11:21 11/13/19 11:21 Oxygen Flow Rate (L/min) 3 Oxygen Delivery Method Nasal Cannula Weight: 96 lb 1.945 oz Body Mass Index (BMI) 17.0 Intake and Output for Last 24 Hours 11/11/19 11/12/19 11/13/19 23:59 23:59 23:59 Intake Total 965.83 / 965.83 514.17 / 514.17 Output Total 1425 / 1425 200 / 200 Balance -459.17 / -459.17 314.17 / 314.17 General: Alert, Oriented x3, Cooperative HEENT: Atraumatic, PERRLA, EOMI, Normocephalic, - - tremor, dyskinesias in head, face, tongue. Neck: Supple, No JVD, Negative Carotid Bruits Lungs: Clear to auscultation, Normal air movement Cardiovascular: Regular rate, No murmurs Abdomen: Bowel Sounds Present, Soft, Non Tender Extremities: No edema, Capillary Refill Less than 3 Seconds Skin: No rashes, No breakdown Musculoskeletal: No Tenderness to Palpation of Joints or Extremities Neurological: Cranial nerves II-XII grossly intact Psych/Mental Status: Normal Affect, Appropriate, Alert and oriented to time, place, person, mood and affect Laboratory Results 11/12/19 03:10: Crossmatch See Detail 11/12/19 03:10: Iron 19 L, TIBC 333, Iron Saturation 5.7 L 11/12/19 15:00: COVID-19 (RANDI) Negative 11/12/19 16:41: Lamotrigine Pending, Levetiracetam Pending 11/13/19 06:00: WBC 8.9, RBC 2.62 L, Hgb 7.0 L, Hct 23.0 L, MCV 87.8, MCH 26.7 L, MCHC 30.4 L, RDW Std Deviation 52.1 H, RDW Coeff of Young 16.1 H, Plt Count 299, MPV 8.4, Immature Gran % (Auto) 0.200, Neut % (Auto) 70.9 H, Lymph % (Auto) 14.1 L, [place] % (Auto) 13.3 H, Eos % (Auto) 1.2, Baso % (Auto) 0.3, Absolute Neuts (auto) 6.3, Absolute Lymphs (auto) 1.26, Nucleated RBC % 0, Differential Comment SCANNED 11/13/19 06:00: Sodium 138, Potassium 4.6, Chloride 105, Carbon Dioxide 28.0, Anion Gap 5, BUN 12, Creatinine 0.72, Estim Creat Clear Calc 34.49, Est GFR (MDRD) Af Amer 103, Est GFR (MDRD) Non-Af 85, BUN/Creatinine Ratio 16.7, Glucose 94, Calcium 8.2 L 11/13/19 08:28: Hgb 6.7 L, Hct 21.7 L Current Medications Acetaminophen (Tylenol) 650 mg PO Q6H PRN PRN PRN Reason: Pain Score 1-10/Temp > 100.7 F Last Admin: 11/13/19 06:13 Dose: 650 mg Documented by: Albuterol Sulfate (Ventolin Aerosols) 2.5 mg INHALATION Q2H PRN PRN PRN Reason: SOB/WHEEZING Amlodipine Besylate (Norvasc) 10 mg PO DAILY [facility] Last Admin: 11/13/19 11:36 Dose: 10 mg Documented by: Cholecalciferol (Vitamin D (25mcg)) 2,000 unit PO BID [facility] Last Admin: 11/13/19 11:36 Dose: 2,000 unit Documented by: Duloxetine HCl (Cymbalta) 30 mg PO DAILY [facility] Last Admin: 11/13/19 11:37 Dose: 30 mg Documented by: Lactated Ringer's () 1,000 mls @ 50 mls/hr IV .Q20H [facility] Last Admin: 11/13/19 03:35 Dose: 50 mls/hr Documented by: Sodium Chloride () 250 mls @ 15 mls/hr IV .[id number] PRN PRN Reason: Saline Flush Sodium Chloride () 250 mls @ 15 mls/hr IV .[id number] PRN PRN Reason: Additional IVPB Infusion Ferric Sodium Gluconate Complex 250 mg/ Sodium Chloride 270 mls @ 135 mls/hr IV DAILY [facility] Stop: 11/14/19 11:59 Last Infusion: 11/12/19 19:49 Dose: Infused Documented by: Lamotrigine (Lamictal) 200 mg PO BID [facility] Last Admin: 11/13/19 11:36 Dose: 200 mg Documented by: Levetiracetam (Keppra Tablet) 750 mg PO QHS [facility] Last Admin: 11/12/19 22:39 Dose: 750 mg Documented by: Levetiracetam (Keppra Tablet) 500 mg PO DAILY [facility] Last Admin: 11/13/19 11:37 Dose: 500 mg Documented by: Losartan Potassium (Cozaar) 25 mg PO BID [facility] Last Admin: 11/13/19 11:36 Dose: 25 mg Documented by: Mirtazapine (Remeron) 30 mg PO QHS [facility] Last Admin: 11/12/19 22:39 Dose: 30 mg Documented by: Morphine Sulfate () 1 mg IV Q3H PRN PRN PRN Reason: Pain Score 6-10/10 Last Admin: 11/12/19 18:11 Dose: 1 mg Documented by: Ondansetron HCl (Zofran) 4 mg IV Q8H PRN PRN PRN Reason: NAUSEA/VOMITING Oxycodone HCl (Oxyir) 5 mg PO Q4H PRN PRN PRN Reason: Pain Score 4-5/10 Last Admin: 11/12/19 20:00 Dose: 5 mg Documented by: Pantoprazole Sodium (Protonix) 40 mg PO DAILY [facility] Last Admin: 11/13/19 11:37 Dose: 40 mg Documented by: Senna/Docusate Sodium (Senokot-S, Payton-Colace) 2 tablet PO BID PRN PRN PRN Reason: Constipation Sodium Chloride () 10 - 40 ml IV UD PRN PRN Reason: SALINE FLUSH Last Admin: 11/12/19 18:11 Dose: 10 ml Documented by: STROKE Vital Signs/Narrative: Vital Signs Temp Pulse Resp BP Pulse Ox 11/13/19 11:21 99.2 F H 76 20 H 141/61 H 92 11/13/19 08:19 97.9 F 77 16 129/56 H 94 Medical Necessity - Tobacco Use Smoking Status: Current every day smoker Assessment/Plan All Active Problems Fall (Acute) Closed right hip fracture (Acute) 1. R intertroch fx 2/2 fall - surgery 11/11. care as per ortho. 2. Hx Epilepsy - anti epileptics continued - keppra/lamictal. Pt states that her dyskinesias are due to prior seizures and they are unchanged for years. 3. Hx HTN - continue home meds, BP well controlled at this time. 4. Hx Depression - cymbalta, remeron 5. Normocytic anemia - platelets normal. b12 normal, check iron/tibc. normocytic. 6. Dysphagia - speech therapy. pt reluctant to consider modified diet. 7. Iron def anemia - normocytic. transfuse 2 units prbc. check stool occult blood. 8. Moderate protein calorie malnutrition - promotional marketing agent following. DVT ppx: SCDs with worsening anemia. DC planning: SNF likely This patient was seen by Edgard Garcia PA-C under the supervision of Doctor Nataliya. <Rupal An - Last Filed: 11/13/19 15:46> Vitals/I&O's: Vital Signs Temp Pulse Resp BP Pulse Ox 98.6 F 92 18 161/82 H 94 11/13/19 15:28 11/13/19 15:28 11/13/19 15:28 11/13/19 15:28 11/13/19 15:28 Oxygen Flow Rate (L/min) 2 Oxygen Delivery Method Nasal Cannula Weight: 43.6 kg Body Mass Index (BMI) 17.0 Intake and Output for Last 24 Hours 11/11/19 11/12/19 11/13/19 23:59 23:59 23:59 Intake Total 965.83 / 965.83 1608.34 / 1608.34 Output Total 1425 / 1425 200 / 200 Balance -459.17 / -459.17 1408.34 / 1408.34 Laboratory Results 11/12/19 03:10: Crossmatch See Detail 11/12/19 15:00: COVID-19 (RANDI) Negative 11/12/19 16:41: Lamotrigine Pending, Levetiracetam Pending 11/13/19 06:00: WBC 8.9, RBC 2.62 L, Hgb 7.0 L, Hct 23.0 L, MCV 87.8, MCH 26.7 L, MCHC 30.4 L, RDW Std Deviation 52.1 H, RDW Coeff of Young 16.1 H, Plt Count 299, MPV 8.4, Immature Gran % (Auto) 0.200, Neut % (Auto) 70.9 H, Lymph % (Auto) 14.1 L, [place] % (Auto) 13.3 H, Eos % (Auto) 1.2, Baso % (Auto) 0.3, Absolute Neuts (auto) 6.3, Absolute Lymphs (auto) 1.26, Nucleated RBC % 0, Differential Comment SCANNED 11/13/19 06:00: Sodium 138, Potassium 4.6, Chloride 105, Carbon Dioxide 28.0, Anion Gap 5, BUN 12, Creatinine 0.72, Estim Creat Clear Calc 34.49, Est GFR (MDRD) Af Amer 103, Est GFR (MDRD) Non-Af 85, BUN/Creatinine Ratio 16.7, Glucose 94, Calcium 8.2 L 11/13/19 08:28: Hgb 6.7 L, Hct 21.7 L Current Medications Acetaminophen (Tylenol) 650 mg PO Q6H PRN PRN PRN Reason: Pain Score 1-10/Temp > 100.7 F Last Admin: 11/13/19 06:13 Dose: 650 mg Documented by: Albuterol Sulfate (Ventolin Aerosols) 2.5 mg INHALATION Q2H PRN PRN PRN Reason: SOB/WHEEZING Amlodipine Besylate (Norvasc) 10 mg PO DAILY [facility] Last Admin: 11/13/19 11:36 Dose: 10 mg Documented by: Cholecalciferol (Vitamin D (25mcg)) 2,000 unit PO BID [facility] Last Admin: 11/13/19 11:36 Dose: 2,000 unit Documented by: Duloxetine HCl (Cymbalta) 30 mg PO DAILY [facility] Last Admin: 11/13/19 11:37 Dose: 30 mg Documented by: Lactated Ringer's () 1,000 mls @ 50 mls/hr IV .Q20H [facility] Last Infusion: 11/13/19 12:40 Dose: 0 mls/hr Documented by: Sodium Chloride () 250 mls @ 15 mls/hr IV .[id number] PRN PRN Reason: Saline Flush Sodium Chloride () 250 mls @ 15 mls/hr IV .[id number] PRN PRN Reason: Additional IVPB Infusion Ferric Sodium Gluconate Complex 250 mg/ Sodium Chloride 270 mls @ 135 mls/hr IV DAILY [facility] Stop: 11/14/19 11:59 Last Infusion: 11/12/19 19:49 Dose: Infused Documented by: Lamotrigine (Lamictal) 200 mg PO BID [facility] Last Admin: 11/13/19 11:36 Dose: 200 mg Documented by: Levetiracetam (Keppra Tablet) 750 mg PO QHS [facility] Last Admin: 11/12/19 22:39 Dose: 750 mg Documented by: Levetiracetam (Keppra Tablet) 500 mg PO DAILY [facility] Last Admin: 11/13/19 11:37 Dose: 500 mg Documented by: Losartan Potassium (Cozaar) 25 mg PO BID [facility] Last Admin: 11/13/19 11:36 Dose: 25 mg Documented by: Mirtazapine (Remeron) 30 mg PO QHS [facility] Last Admin: 11/12/19 22:39 Dose: 30 mg Documented by: Morphine Sulfate () 1 mg IV Q3H PRN PRN PRN Reason: Pain Score 6-10/10 Last Admin: 11/12/19 18:11 Dose: 1 mg Documented by: Ondansetron HCl (Zofran) 4 mg IV Q8H PRN PRN PRN Reason: NAUSEA/VOMITING Oxycodone HCl (Oxyir) 5 mg PO Q4H PRN PRN PRN Reason: Pain Score 4-5/10 Last Admin: 11/12/19 20:00 Dose: 5 mg Documented by: Pantoprazole Sodium (Protonix) 40 mg PO DAILY [facility] Last Admin: 11/13/19 11:37 Dose: 40 mg Documented by: Senna/Docusate Sodium (Senokot-S, Payton-Colace) 2 tablet PO BID PRN PRN PRN Reason: Constipation Sodium Chloride () 10 - 40 ml IV UD PRN PRN Reason: SALINE FLUSH Last Admin: 11/12/19 18:11 Dose: 10 ml Documented by: STROKE Vital Signs/Narrative: Vital Signs Temp Pulse Resp BP Pulse Ox 11/13/19 15:28 98.6 F 92 18 161/82 H 94 11/13/19 14:37 98.6 F 88 18 138/76 H 92 11/13/19 13:37 98.6 F 82 18 134/63 H 92 11/13/19 12:37 99.0 F 81 16 125/57 H 98 11/13/19 12:22 99.7 F H 78 20 H 143/64 H 95 Assessment/Plan This patient was seen in conjunction with DAVID Dhillon. I have independently interviewed and examined the patient and reviewed pertinent historical, laboratory, and other data. Please refer to DAVID Dhillon note for his patient's presentation, findings, and recommendations. I have reviewed and his note and concur with his documentation Patient was seen and examined. She has been kept n.p.o. by speech therapy. Patient refused to believe that she has swallowing issues. Stated that this is how her swallowing has always been. She stated that she wants to be discharged to go home and take care of her daughter who is in a wheelchair from osteogenesis imperfecta. She does not seem to comprehend that she is weak and when told that she was assessed by PT and OT and recommended to follow rehab she refuses. She ended by saying she needs to speak to her daughter. Physical Exam: Gen: Looks in some discomfort, not pale, not jaundiced, involuntary movements of tongue and head and neck CVS:HS I +II, regular, no murmurs RESP: Diminished at lung bases GI: BS present and normal, soft, nontender, no palpable organs EXT:No edema ASSESSMENT: 1. Right intertrochanteric hip fracture secondary to mechanical fall, history of previous fractures 2. Epilepsy, continue Keppra and Lamictal 3. Hypertension 4. Depression 5. Anemia 6. Suspected osteoporosis 7. Malnutrition, moderate Plan: Blood transfusion, continue on IV venofer Continue with pain control Follow-up with speech therapy recommendations Follow-up on FOBT Inpatient E&M: [id number] Subs Hosp L2
--- NOTE | 2019-11-13 15:53 | NURSING ---
Read and reviewed SN documentation
--- NOTE | 2019-11-13 17:59 | CASEMGMT ---
Social Work SW met with pt and introduced self and role of SW. Pt lives at home in a one story home with two wheelchair bound adult children. Pt wanting to return home at this time however pt is toe touch weight bearing and was able to walk only 3 feet with therapy. JAMIE reviewed this information with pt and need for rehab prior to return home. JAMIE reviewed list of in network facilities with pt and pt stating she does not know and deferred decision making to mary Phan. Phone call to Emilie and update given. Emilie states she does not feel pt can return home at this time and will need rehab and would like TCU. Phone call to [facility] in TCU and they do have a bed available and will need to get precert from insurance. Izart started this afternoon. Will likely not hear back from insurance unitl Saturday. Pt and dgt updated. Plan: TCU, pending insurance authorization KAROL Friedman
[2019-11-13] MEDS: 0.9% Saline Lock 10 ML Syringe IV ×2 (18:36→21:37)
[2019-11-13] MEDS: Sodium Ferric Gluconat 250 MG in 0.9% Normal Saline 250 ML 135 MG IV (19:24)
[2019-11-13 19:49] LABS: Hematocrit 34.3 % (37-47); Hemoglobin 10.9 g/dL (12.0-15.0)
[2019-11-13] MEDS: Mirtazapine 30 MG Tablet PO (22:18)
[2019-11-13] MEDS: levETIRAcetam 750 MG Tablet PO (22:19)
[2019-11-14 03:09] VITALS: BP 150/68; PULSE 82; RESP 20; TEMP 37.6; O2SAT 92
[2019-11-14] MEDS: Lactated Ringers 1,000 ML 50 ML IV (04:43)
[2019-11-14 06:48] LABS: Absolute Lymphocyte Count 1.15 X10^3/uL (0.83-4.51); Absolute Neutrophil Count 12.1 X10^3/uL (2.0-7.7); Basophil# 0.08 X10^3/uL; Basophil% 0.5 % (0-1); Hematocrit 33.8 % (37-47); Lymphocyte # 1.15 X10^3/ul (4.0); Lymphocyte % 7.8 % (19-41); Mean Corp Hgb Conc 32.5 g/dL (32-36); Mean Corpuscular Hgb 28.1 pg (27.0-32.0); Mean Corpuscular Volume 86.4 fL (81-99); Mean Platelet Vol. 9.2 fl (6.2-12.0); Monocyte# 1.42 X10^3/uL; Monocyte% 9.6 % (0-10); NRBC Flagged by Analyzer 0 % (0-5); Neutrophil # 12.11 X10^3/uL (2.7-7.7); Neutrophil % 81.6 % (47-70); Platelet Count 285 K/mm3 (150-450); RBC Distribution Width CV 15.6 % (11.6-14.6); RBC Distribution Width SD 49.2 fl (35.1-43.9); Red Blood Count 3.91 M/mm3 (4.2-5.4); White Blood Count 14.8 K/mm3 (4.4-11.0)
[2019-11-14 07:12] LABS: ALB/GLOB Ratio 0.9 RATIO (0.9-2.4); AST(SGOT) 21 U/L (15-37); Alanine Aminotransfer ALT/SGPT 14 U/L (13-56); Alkaline Phosphatase 71 U/L (45-117); Anion Gap 6 (5-15); BUN 9 mg/dL (7-18); BUN/Creat Ratio 16.5 RATIO (10-20); Calcium,Total 8.6 mg/dL (8.5-10.1); Chloride 104 mmol/L (98-107); Creatinine, Serum 0.55 mg/dL (0.55-1.02); EST Glomerular Filtration Rate 116 mL/min (>60); Est Glom Filt Rate - Afr Amer 140 mL/min (>60); Estimated Creatinine Clearance 34.49 ml/min; Globulin 3.3 g/dL (2.2-4.2); Glucose 85 mg/dL (74-106); Potassium 3.7 mmol/L (3.5-5.1); Protein, Total 6.3 g/dL (6.4-8.2); Sodium Level 138 mmol/L (136-145)
[2019-11-14 07:30] VITALS: O2SAT 93
[2019-11-14 09:41] VITALS: BP 144/60; PULSE 90; RESP 18; TEMP 36.8; O2SAT 92
[2019-11-14] MEDS: Losartan Potassium 25 MG Tablet PO ×2 (10:34→21:49)
[2019-11-14] MEDS: levETIRAcetam 500 MG Tablet PO (10:35)
[2019-11-14] MEDS: amLODIPine 10 MG Tablet PO (10:35)
[2019-11-14] MEDS: DULoxetine Hcl 30 MG Capsule PO (10:35)
[2019-11-14] MEDS: lamoTRIgine 100 MG Tablet 200 MG PO ×2 (10:35→21:50)
[2019-11-14] MEDS: Pantoprazole Sodium 40 MG Tablet PO (10:35)
[2019-11-14] MEDS: Sodium Ferric Gluconat 250 MG in 0.9% Normal Saline 250 ML 135 MG IV (10:50)
--- NOTE | 2019-11-14 11:35 | ST ---
11/14/2019 MBS revealed moderate to severe oropharyngeal dysphagia (DSRS: 5; DCS: D3) with grade III and IV SILENT aspiration of thin and nectar thickened liquids, in addition to marked pharyngeal dysmotility secondary to the diagnosis of chronic obstructive pulmonary disease, likely exacerbated by her current medical condition. DIET TEXTURE RECOMMENDATIONS: pureed textured (IDDSI: 4), honey thickened liquid (IDDSI: 3) diet RECOMMENDED COMPENSATORY STRATEGIES: direct supervision, reduced bolus volume / rate of ingestion, alternate bites and sips, seated upright at 90 degrees during PO intake, remain upright for 30-60 minutes post meal (GERD precaution), medications crushed in purees. The results and recommendations of the 11/14/2019 MBS were discussed with the patient immediately following MBS completion, as well as with Dr. An and DAVID Rene, with both requesting for this clinician to discuss further with the patients daughter later this date. Dmitry Dior M.A., MALA-[employer] OFF BRAKER MACHINE, CBIS MBSImP Certified, LSVT Certified [facility] Speech-Language Pathology Department Email: [email or web address]
[2019-11-14 12:33] VITALS: BP 128/49; PULSE 89; RESP 18; TEMP 36.6; O2SAT 93
[2019-11-14] MEDS: 0.9% Saline Lock 10 ML Syringe IV (12:36)
[2019-11-14] MEDS: Furosemide 40 MG/4 ML Vial IV (12:36)
--- NOTE | 2019-11-14 12:39 | ST ---
The results and recommendations of the 11/14/2019 MBS were discussed with the Patient immediately following MBS completion, and additionally discussed with the patients family (her daughter Emilie Winters at [phone]), with the Patient open to education though stating intentions for non-compliance, though her daughter Emilie verbalized understanding and agreement with all recommendations and education provided and desired to discuss with the Patient further to come to an agreement as a team. The following points were discussed at length with both the Patient and later with her daughter Emilie: We discussed the overall results of the 11/14/2019 MBS, which revealed with moderate to severe oropharyngeal dysphagia (DSRS: 5; DCS: D3) with grade III and IV SILENT aspiration of thin and nectar thickened liquids, in addition to marked pharyngeal dysmotility secondary to the diagnosis of chronic obstructive pulmonary disease, likely exacerbated by her current medical condition. We discussed factors impacting effects of aspiration, to include: the quantity of aspiration, the depth of aspiration (trachea or distal airways), and the physical properties of the aspirate, with aspiration of larger quantities and / or aspiration of thicker / more dense textures increasing the likelihood of developing aspiration related pulmonary complications, and discussed these effects in relation to an overt vs. silent reaction to aspiration. We discussed consequences of oropharyngeal dysphagia, to include pulmonary complications from tracheobronchial aspiration which results in pneumonia in 50% of cases with associated mortality of up to 50% (Clav? et al. 2004, 2005a); her potential for airway obstruction / asphyxiation; her risk of inadequate oral intake because of dysphagia with reduced liquid intake resulting in dehydration and reduced caloric intake resulting in unintentional and potentially medically complicating loss of weight; a higher likelihood of impairment in mental and physical condition to include depression and deterioration in the quality of life, increased disability rates, and lengthening of healing; complications in overall course of care with later discharge from acute admissions / increased length of hospitalizations, increased likelihood for discharge to fpc, and overall worse rehabilitation outcomes; and increased risk for mortality / . We discussed her higher risk of aspiration related medical complications / aspiration pneumonia / aspiration related pulmonary syndrome secondary to the diagnosis of chronic obstructive pulmonary disease, the presence and extent of dysphagia and her extensive pharyngeal phase impairment, the presence and extent of SILENT aspiration identified under fluoroscopy of multiple viscosities under fluoroscopy, with increased potential for tracheobronchial aspiration of more dense viscosities, her compromised airway defenses (dystussia), her suboptimal oral health and current edentulous status, her current depressed functional status, and her smoking status. We discussed the likelihood that her current swallow profile is exacerbated by her current medical complications (which is common within the acute care setting), and the importance of a more aggressive management approach at this level of care vs. during management at the outpatient level when she is at her baseline level of overall health. We discussed the benefit of further investigation under fluoroscopy at that time to determine her risk when she is at or very near her baseline level of functioning. We discussed her higher risk of oropharyngeal colonization with respiratory pathogens secondary to the patient?s poor nutritional status, current smoking status, suboptimal oral hygiene, and xerostomia, and how aspiration of saliva contaminated with pathogens can lead to pulmonary infections, with creation, implementation, and adherence to an aggressive oral care program essential to maintaining her current and future health. We discussed her elevated risk for malnutrition and dehydration due to the extent of recommended liquid viscosities / diet texture restrictions, and the related negative impact on palatability / intake pleasure / quality of life and anticipated smaller PO intake quantities, higher risk for early satiety with recommended thicker viscosities, and reduced rate of intake with slower viscosities, her progressive unexplained weight loss and her current severity of dysphagia. The patient openly reports considering non-compliance with recommendations for altered diet thickened liquids due to concerns with quality of life, which we discussed quality of life considerations and the importance of full comprehension of the risks associated with and without use of a mechanically altered diet; I encouraged her to discuss this with her family and medical staff, with the patient expressing understanding. We discussed risk factors for non-compliance with dietary recommendations secondary to distaste of altered liquid viscosities / diet texture recommendations and it?s negative impact on quality of life, with overall low compliance rates reported post acute discharge (40%; Toby et al. 2012), and discussed this more so with her daughter (out of her daughters interest). Both the patient and the patients daughter were encouraged to contact the [facility] Speech-Language Pathology Department and/or this clinician directly with any questions or concerns that follow regarding her oropharyngeal dysphagia. Dmitry Dior M.A., MALA-PATHOLOGY ASSISTANT, CBIS MBSImP Certified, LSVT Certified [facility] Speech-Language Pathology Department Email: [email or web address]
--- NOTE | 2019-11-14 13:00 | PCM.PN.HOSP ---
<Edgard Garcia PA - Last Filed: 11/14/19 13:00> Patient Problems: Active and Suspected Problems Fall (Acute) Closed right hip fracture (Acute) Reason for Visit: hip fx Subjective: no acute issues at this time. Pt had video swallow done and has silent aspiration - speech therapy has recommended honey thick liquids. Pt does not want to follow this despite the risks of aspiration explained to her multiple times. No fever/chills/cough/sob. Pain in hip is well controlled. She remains very weak on her feet. Vitals/I&O's: Vital Signs Temp Pulse Resp BP Pulse Ox 97.8 F 89 18 128/49 H 93 11/14/19 12:33 11/14/19 12:33 11/14/19 12:33 11/14/19 12:33 11/14/19 12:33 Oxygen Flow Rate (L/min) 2 Oxygen Delivery Method Nasal Cannula Weight: 96 lb 1.945 oz Body Mass Index (BMI) 17.0 Intake and Output for Last 24 Hours 11/12/19 11/13/19 11/14/19 23:59 23:59 23:59 Intake Total 965.83 / 965.83 2518.34 / 2518.34 1105.17 / 1105.17 Output Total 1425 / 1425 900 / 900 400 / 400 Balance -459.17 / -459.17 1618.34 / 1618.34 705.17 / 705.17 General: Alert, Oriented x3, Cooperative HEENT: Atraumatic, PERRLA, EOMI, Normocephalic Neck: Supple, No JVD, Negative Carotid Bruits Lungs: Clear to auscultation, Normal air movement Cardiovascular: Regular rate, No murmurs Abdomen: Bowel Sounds Present, Soft, Non Tender Extremities: No edema, Capillary Refill Less than 3 Seconds Skin: No rashes, No breakdown Musculoskeletal: No Tenderness to Palpation of Joints or Extremities Neurological: Cranial nerves II-XII grossly intact Psych/Mental Status: Normal Affect, Appropriate, Alert and oriented to time, place, person, mood and affect Laboratory Results 11/12/19 03:10: Crossmatch See Detail 11/13/19 19:40: Hgb 10.9 L, Hct 34.3 L 11/14/19 06:03: WBC 14.8 H, RBC 3.91 L, Hgb 11.0 L, Hct 33.8 L, MCV 86.4, MCH 28.1, MCHC 32.5 D, RDW Std Deviation 49.2 H, RDW Coeff of Young 15.6 H, Plt Count 285, MPV 9.2, Immature Gran % (Auto) 0.500, Neut % (Auto) 81.6 H, Lymph % (Auto) 7.8 L, Cook % (Auto) 9.6, Eos % (Auto) 0.0, Baso % (Auto) 0.5, Absolute Neuts (auto) 12.1 H, Absolute Lymphs (auto) 1.15, Nucleated RBC % 0 11/14/19 06:03: Sodium 138, Potassium 3.7, Chloride 104, Carbon Dioxide 28.0, Anion Gap 6, BUN 9, Creatinine 0.55, Estim Creat Clear Calc 34.49, Est GFR (MDRD) Af Amer 140, Est GFR (MDRD) Non-Af 116, BUN/Creatinine Ratio 16.5, Glucose 85, Calcium 8.6, Total Bilirubin 0.50, AST 21, ALT 14, Alkaline Phosphatase 71, Total Protein 6.3 L, Albumin 3.0 L, Globulin 3.3, Albumin/Globulin Ratio 0.9 Current Medications Acetaminophen (Tylenol) 650 mg PO Q6H PRN PRN PRN Reason: Pain Score 1-10/Temp > 100.7 F Last Admin: 11/13/19 22:19 Dose: 650 mg Documented by: Albuterol Sulfate (Ventolin Aerosols) 2.5 mg INHALATION Q2H PRN PRN PRN Reason: SOB/WHEEZING Amlodipine Besylate (Norvasc) 10 mg PO DAILY [facility] Last Admin: 11/14/19 10:35 Dose: 10 mg Documented by: Cholecalciferol (Vitamin D (25mcg)) 2,000 unit PO BID [facility] Last Admin: 11/14/19 10:34 Dose: 2,000 unit Documented by: Duloxetine HCl (Cymbalta) 30 mg PO DAILY [facility] Last Admin: 11/14/19 10:35 Dose: 30 mg Documented by: Sodium Chloride () 250 mls @ 15 mls/hr IV .[id number] PRN PRN Reason: Saline Flush Sodium Chloride () 250 mls @ 15 mls/hr IV .[id number] PRN PRN Reason: Additional IVPB Infusion Lamotrigine (Lamictal) 200 mg PO BID [facility] Last Admin: 11/14/19 10:35 Dose: 200 mg Documented by: Levetiracetam (Keppra Tablet) 750 mg PO QHS [facility] Last Admin: 11/13/19 22:19 Dose: 750 mg Documented by: Levetiracetam (Keppra Tablet) 500 mg PO DAILY [facility] Last Admin: 11/14/19 10:35 Dose: 500 mg Documented by: Losartan Potassium (Cozaar) 25 mg PO BID [facility] Last Admin: 11/14/19 10:34 Dose: 25 mg Documented by: Mirtazapine (Remeron) 30 mg PO QHS [facility] Last Admin: 11/13/19 22:18 Dose: 30 mg Documented by: Ondansetron HCl (Zofran) 4 mg IV Q8H PRN PRN PRN Reason: NAUSEA/VOMITING Oxycodone HCl (Oxyir) 5 mg PO Q4H PRN PRN PRN Reason: Pain Score 4-5/10 Last Admin: 11/12/19 20:00 Dose: 5 mg Documented by: Pantoprazole Sodium (Protonix) 40 mg PO DAILY [facility] Last Admin: 11/14/19 10:35 Dose: 40 mg Documented by: Senna/Docusate Sodium (Senokot-S, Payton-Colace) 2 tablet PO BID PRN PRN PRN Reason: Constipation Sodium Chloride () 10 - 40 ml IV UD PRN PRN Reason: SALINE FLUSH Last Admin: 11/14/19 12:36 Dose: 10 ml Documented by: STROKE Vital Signs/Narrative: Vital Signs Temp Pulse Resp BP Pulse Ox 11/14/19 12:33 97.8 F 89 18 128/49 H 93 11/14/19 09:41 98.3 F 90 18 144/60 H 92 Medical Necessity - Tobacco Use Smoking Status: Current every day smoker Assessment/Plan All Active Problems Fall (Acute) Closed right hip fracture (Acute) 1. R intertroch fx 2/2 fall - surgery 11/11. care as per ortho. 2. Hx Epilepsy - anti epileptics continued - keppra/lamictal. Pt states that her dyskinesias are due to prior seizures and they are unchanged for years. 3. Hx HTN - continue home meds, BP well controlled at this time. 4. Hx Depression - cymbalta, remeron 5. Normocytic anemia - platelets normal. b12 normal, check iron/tibc. normocytic. 6. Dysphagia - speech therapy. pt reluctant to consider modified diet. video swallow today - honey thickened liquids. 7. Iron def anemia - normocytic. transfused 2 units prbc. check stool occult blood. Hgb improved. 8. Moderate protein calorie malnutrition - statue maker following. DVT ppx: Lovenox. monitor Hgb. DC planning: SNF likely This patient was seen by Edgard Garcia PA-C under the supervision of Doctor Nataliya. <Rupal An - Last Filed: 11/14/19 16:18> Vitals/I&O's: Vital Signs Temp Pulse Resp BP Pulse Ox 97.8 F 89 18 128/49 H 93 11/14/19 12:33 11/14/19 12:33 11/14/19 12:33 11/14/19 12:33 11/14/19 12:33 Oxygen Flow Rate (L/min) 2 Oxygen Delivery Method Nasal Cannula Weight: 43.6 kg Body Mass Index (BMI) 17.0 Intake and Output for Last 24 Hours 11/12/19 11/13/19 11/14/19 23:59 23:59 23:59 Intake Total 965.83 / 965.83 2518.34 / 2518.34 1105.17 / 1105.17 Output Total 1425 / 1425 900 / 900 400 / 400 Balance -459.17 / -459.17 1618.34 / 1618.34 705.17 / 705.17 Laboratory Results 11/12/19 03:10: Crossmatch See Detail 11/13/19 19:40: Hgb 10.9 L, Hct 34.3 L 11/14/19 06:03: WBC 14.8 H, RBC 3.91 L, Hgb 11.0 L, Hct 33.8 L, MCV 86.4, MCH 28.1, MCHC 32.5 D, RDW Std Deviation 49.2 H, RDW Coeff of Young 15.6 H, Plt Count 285, MPV 9.2, Immature Gran % (Auto) 0.500, Neut % (Auto) 81.6 H, Lymph % (Auto) 7.8 L, Cook % (Auto) 9.6, Eos % (Auto) 0.0, Baso % (Auto) 0.5, Absolute Neuts (auto) 12.1 H, Absolute Lymphs (auto) 1.15, Nucleated RBC % 0 11/14/19 06:03: Sodium 138, Potassium 3.7, Chloride 104, Carbon Dioxide 28.0, Anion Gap 6, BUN 9, Creatinine 0.55, Estim Creat Clear Calc 34.49, Est GFR (MDRD) Af Amer 140, Est GFR (MDRD) Non-Af 116, BUN/Creatinine Ratio 16.5, Glucose 85, Calcium 8.6, Total Bilirubin 0.50, AST 21, ALT 14, Alkaline Phosphatase 71, Total Protein 6.3 L, Albumin 3.0 L, Globulin 3.3, Albumin/Globulin Ratio 0.9 Current Medications Acetaminophen (Tylenol) 650 mg PO Q6H PRN PRN PRN Reason: Pain Score 1-10/Temp > 100.7 F Last Admin: 11/13/19 22:19 Dose: 650 mg Documented by: Albuterol Sulfate (Ventolin Aerosols) 2.5 mg INHALATION Q2H PRN PRN PRN Reason: SOB/WHEEZING Amlodipine Besylate (Norvasc) 10 mg PO DAILY [facility] Last Admin: 11/14/19 10:35 Dose: 10 mg Documented by: Cholecalciferol (Vitamin D (25mcg)) 2,000 unit PO BID [facility] Last Admin: 11/14/19 10:34 Dose: 2,000 unit Documented by: Duloxetine HCl (Cymbalta) 30 mg PO DAILY [facility] Last Admin: 11/14/19 10:35 Dose: 30 mg Documented by: Enoxaparin Sodium (Lovenox) 40 mg SC DAILY [facility] Last Admin: 11/14/19 14:48 Dose: 40 mg Documented by: Sodium Chloride () 250 mls @ 15 mls/hr IV .[id number] PRN PRN Reason: Saline Flush Sodium Chloride () 250 mls @ 15 mls/hr IV .[id number] PRN PRN Reason: Additional IVPB Infusion Lamotrigine (Lamictal) 200 mg PO BID [facility] Last Admin: 11/14/19 10:35 Dose: 200 mg Documented by: Levetiracetam (Keppra Tablet) 750 mg PO QHS [facility] Last Admin: 11/13/19 22:19 Dose: 750 mg Documented by: Levetiracetam (Keppra Tablet) 500 mg PO DAILY [facility] Last Admin: 11/14/19 10:35 Dose: 500 mg Documented by: Losartan Potassium (Cozaar) 25 mg PO BID [facility] Last Admin: 11/14/19 10:34 Dose: 25 mg Documented by: Mirtazapine (Remeron) 30 mg PO QHS [facility] Last Admin: 11/13/19 22:18 Dose: 30 mg Documented by: Ondansetron HCl (Zofran) 4 mg IV Q8H PRN PRN PRN Reason: NAUSEA/VOMITING Oxycodone HCl (Oxyir) 5 mg PO Q4H PRN PRN PRN Reason: Pain Score 4-5/10 Last Admin: 11/12/19 20:00 Dose: 5 mg Documented by: Pantoprazole Sodium (Protonix) 40 mg PO DAILY [facility] Last Admin: 11/14/19 10:35 Dose: 40 mg Documented by: Senna/Docusate Sodium (Senokot-S, Payton-Colace) 2 tablet PO BID PRN PRN PRN Reason: Constipation Sodium Chloride () 10 - 40 ml IV UD PRN PRN Reason: SALINE FLUSH Last Admin: 11/14/19 12:36 Dose: 10 ml Documented by: STROKE Vital Signs/Narrative: Vital Signs Temp Pulse Resp BP Pulse Ox 11/14/19 12:33 97.8 F 89 18 128/49 H 93 Assessment/Plan This patient was seen in conjunction with DAVID Dhillon. I have independently interviewed and examined the patient and reviewed pertinent historical, laboratory, and other data. Please refer to DAVID Dhillon note for his patient's presentation, findings, and recommendations. I have reviewed and his note and concur with his documentation Patient was seen and examined. Discussed with speech therapy, on honey thickened liquids. No acute events overnight. Her pain is controlled. Physical Exam: Gen: More comfortable, not pale, not jaundiced, involuntary movements of tongue and head and neck, on 2L oxygen CVS:HS I +II, regular, no murmurs RESP: Diminished at lung bases GI: BS present and normal, soft, nontender, no palpable organs EXT:No edema ASSESSMENT: 1. Right intertrochanteric hip fracture secondary to mechanical fall, history of previous fractures 2. Epilepsy, continue Keppra and Lamictal 3. Hypertension 4. Depression 5. Anemia s/p 2 units pRBC 6. Suspected osteoporosis 7. Malnutrition, moderate Plan: Complete IV venofer Continue with pain control Follow-up with speech therapy recommendations Follow-up on FOBT Inpatient E&M: [id number] Subs Hosp L2
[2019-11-14] MEDS: Enoxaparin 40 MG/0.4 ML Syringe SC (14:48)
--- NOTE | 2019-11-14 14:52 | SP.MBSS_ITS ---
Modified Barium Swallow - Patient Information Study Date: 11/14/19 Study Time: 10:05 Direct Billable Minutes: 65 Total Minutes procedure & reportin Diagnosis: Dysphagia (R13.12) Referring Physician: Rupal An Reason for Referral: The Patient is a 74 year old female referred for a modified barium swallow (MBS) study to objectively assess the Patients oropharyngeal swallow function under fluoroscopy secondary to concerns for silent aspiration associated with the diagnosis of chronic obstructive pulmonary disease. Medical History: Chronic obstructive pulmonary disease, seizure disorder, hypertension Current Diet Ordered: NPO Dentition: Edentulous Respiratory Status: Oxygenating on 2L/M nasal cannula - Penetration-Aspiration Scale Score Thin Liquid via teaspoon Result: 1= does not enter airway Thin Liquid Result: 8= enters airway/below vocal folds/no effort [place] Thick Liquid Result: 1= does not enter airway [place] Thick Liquid Trial 2 Result: 5= enters airways/contacts vocal folds/not ejected [place] Thick Liquid Trial 3 Result: 8= enters airway/below vocal folds/no effort [place] Thick Liquid Trial 4 Result: 8= enters airway/below vocal folds/no effort [place] Thick Liquid Result: 1= does not enter airway [place] Thick Liquid Trial 2 Result: 2= enter airway/above vocal folds/ejected [place] Thick Liquid Trial 3 Result: 2= enter airway/above vocal folds/ejected [place] Result: 1= does not enter airway [place] Thick Liquid Trial 4 Result: 2= enter airway/above vocal folds/ejected [place] Thick Liquid Trial 5 Result: 3= enters airways/above vocal folds/not ejected [place] Thick Liquid Trial 6 Result: 2= enter airway/above vocal folds/ejected - Oral Phase Labial Seal: No Labial Escape Tongue Control During Bolus Hold: Posterior escape of less than half of bolus Bolus Transport/Lingual Motion: Repetitive/disorganized tongue motion Oral Residue: Residue collection on oral structures - Pharyngeal Phase Initiation of Pharyngeal Swallow: Bolus head at posterior laryngeal surgace of epiglottis Soft Palate Elevation: No bolus between soft palate and pharyngeal wall Laryngeal Elevation: Partial superior movement thyroid cart/partial apprx aryt- epig petiole Anterior Hyoid Excursion: Partial anterior movement Epiglottic Movement: Partial inversion Laryngeal Vestibule Closure at Height of Swallow: Incomplete; narrow column of air/contrast in laryngeal vestibule Pharyngeal Stripping Wave: Absent Pharyngoesophageal Segment Opening: Parital distension and partial duration; parital obstruction of flow Tongue Base Retraction: Wide column of contrast between tongue base & post. pharyngeal wall Pharyngeal Residue: Collection of residue within or on pharyngeal structures - Diagnosis/Impression Diagnosis: Dysphagia (R13.12) Impression: The patient presents with moderate to severe oropharyngeal dysphagia (DSRS: 5; DCS: D3) with grade III and IV SILENT aspiration of thin and nectar thickened liquids, in addition to marked pharyngeal dysmotility secondary to the diagnosis of chronic obstructive pulmonary disease, likely exacerbated by her current medical condition - Recommendations Diet: Puree Textures, Honey-thick Liquids Comment: Direct supervision, reduced bolus volume / rate of ingestion, alternate bites and sips, seated upright at 90 degrees during PO intake, remain upright for 30- 60 minutes post meal (GERD precaution), medications crushed in purees. Recommend Repeat Modified Barium Swallow: Yes Need for Skilled Speech Therapy Services: Yes Education Completed: 1. Described result of evaluation. - Image Count: [phone] - Status Active ST Patient: Active - Contact Information [facility] Speech Therapy:: Dmitry Dior M.A., MALA-PAPER COATING SUPERVISOR, CBIS MBSImP Certified, LSVT Certified [facility] Speech-Language Pathology Department Email: [email or web address]
[2019-11-14 17:06] VITALS: BP 112/52; PULSE 87; RESP 18; TEMP 36.9; O2SAT 92
[2019-11-14 21:47] VITALS: BP 138/57; PULSE 89; RESP 16; TEMP 37.2; O2SAT 93
[2019-11-14] MEDS: Mirtazapine 30 MG Tablet PO (21:50)
[2019-11-14] MEDS: levETIRAcetam 750 MG Tablet PO (21:50)
[2019-11-14] MEDS: Acetaminophen 325 MG Tablet 650 MG PO (21:54)
[2019-11-15 03:45] VITALS: BP 130/54; PULSE 87; RESP 17; TEMP 37.2; O2SAT 93
[2019-11-15 05:44] LABS: Hematocrit 32.6 % (37-47); Hemoglobin 10.6 g/dL (12.0-15.0); Mean Corp Hgb Conc 32.5 g/dL (32-36); Mean Corpuscular Hgb 28.3 pg (27.0-32.0); Mean Corpuscular Volume 86.9 fL (81-99); Mean Platelet Vol. 9.1 fl (6.2-12.0); Platelet Count 307 K/mm3 (150-450); RBC Distribution Width CV 15.7 % (11.6-14.6); RBC Distribution Width SD 49.6 fl (35.1-43.9); Red Blood Count 3.75 M/mm3 (4.2-5.4); White Blood Count 12.8 K/mm3 (4.4-11.0)
[2019-11-15 07:35] VITALS: O2SAT 91
[2019-11-15 09:30] VITALS: BP 159/73; PULSE 89; RESP 18; TEMP 37; O2SAT 92
[2019-11-15] MEDS: Enoxaparin 40 MG/0.4 ML Syringe SC (09:41)
[2019-11-15] MEDS: Pantoprazole Sodium 40 MG Tablet PO (09:42)
[2019-11-15] MEDS: amLODIPine 10 MG Tablet PO (09:42)
[2019-11-15] MEDS: lamoTRIgine 100 MG Tablet 200 MG PO ×2 (09:42→21:26)
[2019-11-15] MEDS: Losartan Potassium 25 MG Tablet PO ×2 (09:42→21:27)
[2019-11-15] MEDS: DULoxetine Hcl 30 MG Capsule PO (09:42)
[2019-11-15] MEDS: levETIRAcetam 500 MG Tablet PO (09:42)
--- NOTE | 2019-11-15 10:56 | PN_ITS ---
<Edgard Garcia - Last Filed: 11/15/19 10:56> Patient Problems: Active and Suspected Problems Fall (Acute) Closed right hip fracture (Acute) Reason for Visit: hip fx Subjective: Hip pain minimal. No fever/chills. No nausea/vomiting. No SOB or cough. Pt on o2 but no hypoxia or SOB - will attempt to wean as she does not use this at home. Vitals/I&O's: Vital Signs Temp Pulse Resp BP Pulse Ox 98.6 F 89 18 159/73 H 92 11/15/19 09:30 11/15/19 09:30 11/15/19 09:30 11/15/19 09:30 11/15/19 09:30 Oxygen Flow Rate (L/min) 3 Oxygen Delivery Method Nasal Cannula Weight: 96 lb 1.945 oz Body Mass Index (BMI) 17.0 Intake and Output for Last 24 Hours 11/13/19 11/14/19 11/15/19 23:59 23:59 23:59 Intake Total 2518.34 / 2518.34 1395.17 / 1395.17 0 / 0 Output Total 900 / 900 600 / 600 Balance 1618.34 / 1618.34 795.17 / 795.17 0 / 0 General: Alert, Oriented x3, Cooperative HEENT: Atraumatic, PERRLA, EOMI, Normocephalic Neck: Supple, No JVD, Negative Carotid Bruits Lungs: Clear to auscultation, Normal air movement Cardiovascular: Regular rate, No murmurs Abdomen: Bowel Sounds Present, Soft, Non Tender Extremities: No edema, Capillary Refill Less than 3 Seconds Skin: No rashes, No breakdown Musculoskeletal: No Tenderness to Palpation of Joints or Extremities Neurological: Cranial nerves II-XII grossly intact Psych/Mental Status: Normal Affect, Appropriate, Alert and oriented to time, place, person, mood and affect Laboratory Results 11/15/19 05:25: WBC 12.8 H, RBC 3.75 L, Hgb 10.6 L, Hct 32.6 L, MCV 86.9, MCH 28.3, MCHC 32.5, RDW Std Deviation 49.6 H, RDW Coeff of Young 15.7 H, Plt Count 307, MPV 9.1 Current Medications Acetaminophen (Tylenol) 650 mg PO Q6H PRN PRN PRN Reason: Pain Score 1-10/Temp > 100.7 F Last Admin: 11/14/19 21:54 Dose: 650 mg Documented by: Albuterol Sulfate (Ventolin Aerosols) 2.5 mg INHALATION Q2H PRN PRN PRN Reason: SOB/WHEEZING Amlodipine Besylate (Norvasc) 10 mg PO DAILY COUNT [facility]CLUDES [facility] Last Admin: 11/15/19 09:42 Dose: 10 mg Documented by: Cholecalciferol (Vitamin D (25mcg)) 2,000 unit PO BID COUNT INCLUDES THE [facility] Last Admin: 11/15/19 09:42 Dose: 2,000 unit Documented by: Duloxetine HCl (Cymbalta) 30 mg PO DAILY COUNT [facility]CLUDES [facility] Last Admin: 11/15/19 09:42 Dose: 30 mg Documented by: Enoxaparin Sodium (Lovenox) 40 mg SC DAILY COUNT [facility]CLUDES [facility] Last Admin: 11/15/19 09:41 Dose: 40 mg Documented by: Sodium Chloride () 250 mls @ 15 mls/hr IV .[id number] PRN PRN Reason: Saline Flush Sodium Chloride () 250 mls @ 15 mls/hr IV .[id number] PRN PRN Reason: Additional IVPB Infusion Lamotrigine (Lamictal) 200 mg PO BID COUNT INCLUDES [facility] Last Admin: 11/15/19 09:42 Dose: 200 mg Documented by: Levetiracetam (Keppra Tablet) 750 mg PO QHS COUNT INCLUDES THE [facility] Last Admin: 11/14/19 21:50 Dose: 750 mg Documented by: Levetiracetam (Keppra Tablet) 500 mg PO DAILY COUNT [facility]CLUDES [facility] Last Admin: 11/15/19 09:42 Dose: 500 mg Documented by: Losartan Potassium (Cozaar) 25 mg PO BID COUNT [facility]CLUDES [facility] Last Admin: 11/15/19 09:42 Dose: 25 mg Documented by: Mirtazapine (Remeron) 30 mg PO QHS COUNT INCLUDES [facility] Last Admin: 11/14/19 21:50 Dose: 30 mg Documented by: Ondansetron HCl (Zofran) 4 mg IV Q8H PRN PRN PRN Reason: NAUSEA/VOMITING Oxycodone HCl (Oxyir) 5 mg PO Q4H PRN PRN PRN Reason: Pain Score 4-5/10 Last Admin: 11/12/19 20:00 Dose: 5 mg Documented by: Pantoprazole Sodium (Protonix) 40 mg PO DAILY JEAN CARLOS Last Admin: 11/15/19 09:42 Dose: 40 mg Documented by: Senna/Docusate Sodium (Senokot-S, Payton-Colace) 2 tablet PO BID PRN PRN PRN Reason: Constipation Sodium Chloride () 10 - 40 ml IV UD PRN PRN Reason: SALINE FLUSH Last Admin: 11/14/19 12:36 Dose: 10 ml Documented by: STROKE Vital Signs/Narrative: Vital Signs Temp Pulse Resp BP Pulse Ox 11/15/19 09:30 98.6 F 89 18 159/73 H 92 11/15/19 07:35 91 Medical Necessity - Tobacco Use Smoking Status: Current every day smoker Assessment/Plan All Active Problems Fall (Acute) Closed right hip fracture (Acute) 1. R intertroch fx 2/2 fall - surgery 11/11. Follow up with ortho as o/p. 2. Hx Epilepsy - anti epileptics continued - keppra/lamictal. Pt states that her dyskinesias are due to prior seizures and they are unchanged for years. 3. Hx HTN - continue home meds, BP mildly elevated 4. Hx Depression - cymbalta, remeron 5. Normocytic anemia with iron deficiency - platelets normal. b12 normal, normocytic. IV iron. 6. Dysphagia - speech therapy. pt reluctant to consider modified diet. video swallow today - honey thickened liquids. 7. Moderate protein calorie malnutrition - doctor of dental medicine following. Patients daughter expressed concerns that the pt was anorexic at home. DVT ppx: Lovenox. monitor Hgb. DC planning: SNF, likely tomorrow This patient was seen by Edgard Garcia PA-C under the supervision of Doctor An. <Rupal An - Last Filed: 11/15/19 13:39> Vitals/I&O's: Vital Signs Temp Pulse Resp BP Pulse Ox 98.6 F 89 18 159/73 H 92 11/15/19 09:30 11/15/19 09:30 11/15/19 09:30 11/15/19 09:30 11/15/19 09:30 Oxygen Flow Rate (L/min) 2 Oxygen Delivery Method Nasal Cannula Weight: 43.6 kg Body Mass Index (BMI) 17.0 Intake and Output for Last 24 Hours 11/13/19 11/14/19 11/15/19 23:59 23:59 23:59 Intake Total 2518.34 / 2518.34 1395.17 / 1395.17 1080 / 1080 Output Total 900 / 900 600 / 600 Balance 1618.34 / 1618.34 795.17 / 795.17 1080 / 1080 Laboratory Results 11/15/19 05:25: WBC 12.8 H, RBC 3.75 L, Hgb 10.6 L, Hct 32.6 L, MCV 86.9, MCH 28.3, MCHC 32.5, RDW Std Deviation 49.6 H, RDW Coeff of Young 15.7 H, Plt Count 307, MPV 9.1 Current Medications Acetaminophen (Tylenol) 650 mg PO Q6H PRN PRN PRN Reason: Pain Score 1-10/Temp > 100.7 F Last Admin: 11/14/19 21:54 Dose: 650 mg Documented by: Albuterol Sulfate (Ventolin Aerosols) 2.5 mg INHALATION Q2H PRN PRN PRN Reason: SOB/WHEEZING Amlodipine Besylate (Norvasc) 10 mg PO DAILY COUNT INCLUDES [facility] Last Admin: 11/15/19 09:42 Dose: 10 mg Documented by: Cholecalciferol (Vitamin D (25mcg)) 2,000 unit PO BID COUNT INCLUDES [facility] Last Admin: 11/15/19 09:42 Dose: 2,000 unit Documented by: Duloxetine HCl (Cymbalta) 30 mg PO DAILY COUNT INCLUDES [facility] Last Admin: 11/15/19 09:42 Dose: 30 mg Documented by: Enoxaparin Sodium (Lovenox) 40 mg SC DAILY COUNT INCLUDES [facility] Last Admin: 11/15/19 09:41 Dose: 40 mg Documented by: Sodium Chloride () 250 mls @ 15 mls/hr IV .[id number] PRN PRN Reason: Saline Flush Sodium Chloride () 250 mls @ 15 mls/hr IV .[id number] PRN PRN Reason: Additional IVPB Infusion Lamotrigine (Lamictal) 200 mg PO BID COUNT INCLUDES [facility] Last Admin: 11/15/19 09:42 Dose: 200 mg Documented by: Levetiracetam (Keppra Tablet) 750 mg PO QHS COUNT INCLUDES [facility] Last Admin: 11/14/19 21:50 Dose: 750 mg Documented by: Levetiracetam (Keppra Tablet) 500 mg PO DAILY COUNT [facility]CLUDES [facility] Last Admin: 11/15/19 09:42 Dose: 500 mg Documented by: Losartan Potassium (Cozaar) 25 mg PO BID COUNT INCLUDES [facility] Last Admin: 11/15/19 09:42 Dose: 25 mg Documented by: Mirtazapine (Remeron) 30 mg PO QHS COUNT INCLUDES [facility] Last Admin: 11/14/19 21:50 Dose: 30 mg Documented by: Ondansetron HCl (Zofran) 4 mg IV Q8H PRN PRN PRN Reason: NAUSEA/VOMITING Oxycodone HCl (Oxyir) 5 mg PO Q4H PRN PRN PRN Reason: Pain Score 4-5/10 Last Admin: 11/12/19 20:00 Dose: 5 mg Documented by: Pantoprazole Sodium (Protonix) 40 mg PO DAILY COUNT [facility]CLUDES [facility] Last Admin: 11/15/19 09:42 Dose: 40 mg Documented by: Polysaccharide Iron Complex (Ferrex 150) [facility] Senna/Docusate Sodium (Senokot-S, Payton-Colace) 2 tablet PO BID PRN PRN PRN Reason: Constipation Sodium Chloride () 10 - 40 ml IV UD PRN PRN Reason: SALINE FLUSH Last Admin: 11/14/19 12:36 Dose: 10 ml Documented by: Assessment/Plan This patient was seen in conjunction with DAIVD Dhillon. I have independently interviewed and examined the patient and reviewed pertinent historical, laboratory, and other data. Please refer to DAVID Dhillon note for his patient's presentation, findings, and recommendations. I have reviewed and his note and concur with his documentation Patient was seen and examined. No acute events overnight. Her pain is controlled. Waiting on discharge to TCU. Physical Exam: Gen: More comfortable, not pale, not jaundiced, involuntary movements of tongue and head and neck, on 2L oxygen CVS:HS I +II, regular, no murmurs RESP: Diminished at lung bases GI: BS present and normal, soft, nontender, no palpable organs EXT:No edema ASSESSMENT: 1. POD #3 s/p right hip cephalo-medullary nail for right intertrochanteric fracture secondary to mechanical fall, history of previous fractures 2. Epilepsy, continue Keppra and Lamictal 3. Hypertension 4. Depression 5. Anemia s/p 2 units pRBC 6. Suspected osteoporosis 7. Malnutrition, moderate Plan: Continue with pain control, follow-up with speech therapy recommendation Patient needs referral to osteoporosis clinic for work-up and treatment of osteoporosis at the discharge Inpatient E&M: [id number] Subs Hosp L2
[2019-11-15 15:30] VITALS: BP 125/54; PULSE 89; RESP 18; TEMP 37.1; O2SAT 93
[2019-11-15 21:24] VITALS: BP 124/54; PULSE 88; RESP 18; TEMP 37.3; O2SAT 92
[2019-11-15] MEDS: Mirtazapine 30 MG Tablet PO (21:26)
[2019-11-15] MEDS: levETIRAcetam 750 MG Tablet PO (21:26)
[2019-11-16 03:20] VITALS: O2SAT 86
[2019-11-16 03:25] VITALS: BP 130/53; PULSE 88; RESP 16; TEMP 37.2; O2SAT 94
[2019-11-16 06:25] LABS: Absolute Lymphocyte Count 0.88 X10^3/uL (0.83-4.51); Absolute Neutrophil Count 9.1 X10^3/uL (2.0-7.7); Basophil# 0.04 X10^3/uL; Basophil% 0.4 % (0-1); Hematocrit 30.4 % (37-47); Hemoglobin 9.8 g/dL (12.0-15.0); Lymphocyte # 0.88 X10^3/ul (4.0); Lymphocyte % 7.8 % (19-41); Mean Corp Hgb Conc 32.2 g/dL (32-36); Mean Corpuscular Hgb 28.4 pg (27.0-32.0); Mean Corpuscular Volume 88.1 fL (81-99); Mean Platelet Vol. 8.4 fl (6.2-12.0); Monocyte# 1.14 X10^3/uL; Monocyte% 10.2 % (0-10); NRBC Flagged by Analyzer 0 % (0-5); Neutrophil # 9.09 X10^3/uL (2.7-7.7); Platelet Count 301 K/mm3 (150-450); RBC Distribution Width CV 15.7 % (11.6-14.6); RBC Distribution Width SD 50.4 fl (35.1-43.9); Red Blood Count 3.45 M/mm3 (4.2-5.4); White Blood Count 11.2 K/mm3 (4.4-11.0)
[2019-11-16 06:56] VITALS: O2SAT 93
[2019-11-16 08:27] VITALS: BP 131/56; PULSE 84; RESP 20; TEMP 36.8; O2SAT 93
[2019-11-16] MEDS: amLODIPine 10 MG Tablet PO (08:29)
[2019-11-16] MEDS: Iron Polysaccharide Complex 150 MG CAPSULE PO (08:29)
[2019-11-16] MEDS: lamoTRIgine 100 MG Tablet 200 MG PO (08:30)
[2019-11-16] MEDS: Pantoprazole Sodium 40 MG Tablet PO (08:30)
[2019-11-16] MEDS: Losartan Potassium 25 MG Tablet PO (08:30)
[2019-11-16] MEDS: levETIRAcetam 500 MG Tablet PO (08:30)
[2019-11-16] MEDS: DULoxetine Hcl 30 MG Capsule PO (08:30)
[2019-11-16] MEDS: Enoxaparin 40 MG/0.4 ML Syringe SC (08:31)
--- NOTE | 2019-11-16 10:45 | PCM.EXTCARCO ---
- Diet 11/14/19 13:22 Diet: Regular - General Food consistency:: Pureed Liquid Consistency:: Honey/Moderately Thick Is pt able to select menu?: Yes Diet Comments: Direct supervision; Meds crushed w/ purees - Routine Orders/Code Status Suppository Type: Dulcolax 10mg Suppository Frequency: Daily PRN O2 Frequency: Continuous Keep PO Greater than or Equal to (%): 89 Routine Lab Work: CBC - 5 days, BMP - 5 days Code Status: Full Code - Wound(s) right hip Wound Type: Surgical Incision - Therapies Weight Bearing: Toe-touch weight bearing Physical Therapy: Eval and Treat Occupational Therapy: Eval and Treat Speech Therapy: Eval and Treat - Problem/Diagnosis (1) Dysphagia Status: Chronic Current Visit: Yes (2) Closed right hip fracture Status: Acute Current Visit: Yes (3) Fall Status: Acute Current Visit: Yes (4) History of hypertension Status: Chronic Current Visit: No (5) History of seizures Status: Chronic Current Visit: No - Allergies/Procedures Done in Hospital Allergies/Adverse Reactions: Allergies diltiazem Allergy (Verified 11/12/19 06:37) Unknown gabapentin Allergy (Verified 11/12/19 06:37) SEVERE LEG SWELLING hydrochlorothiazide [From Dyazide] Allergy (Verified 11/12/19 06:37) Unknown metoprolol Allergy (Verified 11/12/19 06:37) Unknown phenytoin [From Dilantin] Allergy (Verified 11/12/19 06:37) TREMORS/TWITCHING triamterene Allergy (Verified 11/12/19 06:37) Unknown ciprofloxacin [From Cipro] Adverse Reaction (Verified 11/12/19 06:37) Other Procedures: None - Type of Care/Length of Stay Estimated LOS: Convalescent Care Less Than 30 days Type of Care Needed: Skilled Rehab Potential: Fair Prognosis: Fair - Additional Orders/Day of Discharge Day of Discharge: 11/16/19 - Dietary and Speech Recommendations Dietitian Recommendations/Changes: As medically able, rec MARIA LUZ to liberal Regular w/ ONS at meals for increased nutrition if consumed. If unable to resume po diet within 3 days - rec supplemental nutrition support if in accordance w/ pt/family wishes. - Follow Up Care Primary Care Physician: Navjot Muñoz, PA [Primary Care Provider] - Please follow up with your Primary Care Physician in: 2 weeks Please Follow Up With: Fox Olson MD When: 2 weeks
--- NOTE | 2019-11-16 11:09 | PHA.DC.MR ---
Pharmacy Service has performed discharge medication reconciliation for this patient upon transfer to TCU. The patient's discharge medication list was reviewed for discrepancies and discrepancies were resolved. Home Medications Amlodipine [Norvasc] 10 mg PO DAILY 11/09/15 Losartan Potassium 25 mg PO BID 11/09/15 Albuterol Inhaler [Ventolin Hfa] 2 puff INHALATION Q4H PRN PRN #1 inhaler 03/24/16 Cholecalciferol (Vitamin D3) [Vitamin D3] 2,000 unit PO BID 02/19/17 Lamotrigine [Lamictal] 200 mg PO BID 02/19/17 Pantoprazole Sodium 40 mg PO DAILY 02/19/17 Levetiracetam [Keppra] 750 mg PO QHS 11/06/17 levETIRAcetam tablet [Keppra tablet] 500 mg PO DAILY 11/06/17 Duloxetine Hcl [Cymbalta] 30 mg PO DAILY 09/27/18 Mirtazapine [Remeron] 30 mg PO QHS 11/12/19 Acetaminophen [Tylenol Tablet] 650 mg PO Q6H PRN PRN tab 11/16/19 Albuterol Aerosols [Ventolin Aerosols] 2.5 mg INHALATION Q2H PRN PRN vial.neb. 11/16/19 Enoxaparin [Lovenox] 40 mg SUBCUT DAILY syringe 11/16/19 Iron Polysaccharide Complex [Ferrex 150] 150 mg PO DAILYCM cap 11/16/19 Oxycodone [Oxyir] 5 mg PO Q4H PRN PRN 3 Days #18 tab 11/16/19 Senna/Docusate Sodium [Senokot-S] 2 tab PO BID PRN PRN tab 11/16/19
--- NOTE | 2019-11-16 13:34 | CASEMGMT ---
JAMIE received a call from Hamida in TCU and patient was approved for TCU. JAMIE notified physician. JAMIE copied med list. JAMIE called patient's daughter and let her know patient was approved and will be going to TCU today. JAMIE reminded her of the 14 day quarantine and that after that they are arranging outside visitation. JAMIE also called patient's sister, Lisa and let her know patient will be discharged to TCU today. JAMIE also reminded her of the 14 day quarantine. Plan: [facility] TCU under skilled level of care. Maria Del Carmen FLORES MSW
--- NOTE | 2019-11-16 13:50 | DS.PCM_ITS ---
Discharge Date and Diagnosis - Problem List Patient Problems: Active and Suspected Problems Fall (Acute) Closed right hip fracture (Acute) Date of Admission: 11/12/19 Date of Discharge: 11/16/19 - Primary Discharge Diagnosis Acute Problems: Active Problems Mechanical fall right intertroch fx s/p surgical repair 11/11 Debility Dysphagia Iron deficiency anemia - Secondary Discharge Diagnosis Chronic Problems: Chronic Problems Dysphagia (Chronic) Seizure (Chronic) History of seizures (Chronic) History of hypertension (Chronic) Hospital Course and Treatment Imaging Results: RAD/Chest 1 View (Portable) IMPRESSION: No acute cardiopulmonary disease. COPD. RAD/Pelvis 1 or 2 Views IMPRESSION: Intertrochanteric fracture right femur. RAD/Ankle 2 Views IMPRESSION: No acute findings in the ankle. RAD/Femur Min 2 Views IMPRESSION: Intertrochanteric fracture. RAD/Hip Min 2 Views (Portable) IMPRESSION: Intraoperative imaging provided for open reduction and internal fixation of the right intertrochanteric fracture utilizing intramedullary aura and compression screw fixation device. RAD/Hip Min 2 Views (Portable) IMPRESSION: Status post open reduction and internal fixation of the right intertrochanteric fracture utilizing an intramedullary aura fixation device and compression screw fixation. Good alignment. Swallow Study: - Diagnosis/Impression Diagnosis: Dysphagia (R13.12) Impression: The patient presents with moderate to severe oropharyngeal dysphagia (DSRS: 5; DCS: D3) with grade III and IV SILENT aspiration of thin and nectar thickened liquids, in addition to marked pharyngeal dysmotility secondary to the diagnosis of chronic obstructive pulmonary disease, likely exacerbated by her current medical condition - Recommendations Diet: Puree Textures, Honey-thick Liquids Comment: Direct supervision, reduced bolus volume / rate of ingestion, alternate bites and sips, seated upright at 90 degrees during PO intake, remain upright for 30- 60 minutes post meal (GERD precaution), medications crushed in purees. Consults: Wesley - harman Operations: - - 11/11 right hip repair Procedures: Blood transfusion Summary of Care Provided: Hospital course: The patient is a 74 year old F with pmhx as above who presented to the ER with mechanical fall, right hip pain. She was found to have right intertroch frature. She was admitted to the PCU and ortho was consulted. She was taken for surgical repair 11/11 which was well tolerated. She had some anemia, was transfused with 1 unit PRBC and found to have iron deficiency. She was given iron replacement. She did not provide a stool sample. She had choking on her pills and speech therapy was ordered. She was found to have severe dysphagia and she was placed on honey thickened diet. She did not have evidence of pneumonia. She was placed on lovenox for DVT ppx and her blood counts remained stable. She remained severely debilitated and SNF was recommended. She was discharged to SNF in stable condition and will need follow up with orthopedics in 2 weeks, and will need further direction for DVT ppx as directed by ortho. Routine follow up with PCP in 2 weeks. This patient was seen by Edgard Garcia PA-C under the supervision of Doctor Yasmin. [] Patient Problems: Active and Suspected Problems Fall (Acute) Closed right hip fracture (Acute) - Physical Exam Vitals/I&O's: Vital Signs Temp Pulse Resp BP Pulse Ox 98.2 F 84 20 H 131/56 H 93 11/16/19 08:27 11/16/19 08:27 11/16/19 08:27 11/16/19 08:27 11/16/19 08:27 Oxygen Flow Rate (L/min) 2 Oxygen Delivery Method Nasal Cannula Weight: 96 lb 1.945 oz Body Mass Index (BMI) 17.0 Intake and Output for Last 24 Hours 11/14/19 11/15/19 11/16/19 23:59 23:59 23:59 Intake Total 1395.17 / 1395.17 1810 / 1810 680 / 680 Output Total 600 / 600 350 / 350 Balance 795.17 / 795.17 1460 / 1460 680 / 680 General: Alert, Oriented x3, Cooperative HEENT: Atraumatic, PERRLA, EOMI, Normocephalic Neck: Supple, No JVD, Negative Carotid Bruits Lungs: Clear to auscultation, Normal air movement Cardiovascular: Regular rate, No murmurs Abdomen: Bowel Sounds Present, Soft, Non Tender Extremities: No edema, Capillary Refill Less than 3 Seconds Skin: No rashes, No breakdown Musculoskeletal: No Tenderness to Palpation of Joints or Extremities Neurological: Cranial nerves II-XII grossly intact Psych/Mental Status: Normal Affect, Appropriate Laboratory Results 11/16/19 06:10: WBC 11.2 H, RBC 3.45 L, Hgb 9.8 L, Hct 30.4 L, MCV 88.1, MCH 28.4, MCHC 32.2, RDW Std Deviation 50.4 H, RDW Coeff of Young 15.7 H, Plt Count 301, MPV 8.4, Immature Gran % (Auto) 0.600, Neut % (Auto) 81.0 H, Lymph % (Auto) 7.8 L, Rhea % (Auto) 10.2 H, Eos % (Auto) 0.0, Baso % (Auto) 0.4, Absolute Neuts (auto) 9.1 H, Absolute Lymphs (auto) 0.88, Nucleated RBC % 0 Current Medications Acetaminophen (Tylenol) 650 mg PO Q6H PRN PRN PRN Reason: Pain Score 1-10/Temp > 100.7 F Last Admin: 11/14/19 21:54 Dose: 650 mg Documented by: Albuterol Sulfate (Ventolin Aerosols) 2.5 mg INHALATION Q2H PRN PRN PRN Reason: SOB/WHEEZING Amlodipine Besylate (Norvasc) 10 mg PO DAILY [facility] Last Admin: 11/16/19 08:29 Dose: 10 mg Documented by: Cholecalciferol (Vitamin D (25mcg)) 2,000 unit PO BID [facility] Last Admin: 11/16/19 08:30 Dose: 2,000 unit Documented by: Duloxetine HCl (Cymbalta) 30 mg PO DAILY [facility] Last Admin: 11/16/19 08:30 Dose: 30 mg Documented by: Enoxaparin Sodium (Lovenox) 40 mg SC DAILY [facility] Last Admin: 11/16/19 08:31 Dose: 40 mg Documented by: Sodium Chloride () 250 mls @ 15 mls/hr IV .[id number] PRN PRN Reason: Saline Flush Sodium Chloride () 250 mls @ 15 mls/hr IV .[id number] PRN PRN Reason: Additional IVPB Infusion Lamotrigine (Lamictal) 200 mg PO BID [facility] Last Admin: 11/16/19 08:30 Dose: 200 mg Documented by: Levetiracetam (Keppra Tablet) 750 mg PO QHS [facility] Last Admin: 11/15/19 21:26 Dose: 750 mg Documented by: Levetiracetam (Keppra Tablet) 500 mg PO DAILY [facility] Last Admin: 11/16/19 08:30 Dose: 500 mg Documented by: Losartan Potassium (Cozaar) 25 mg PO BID [facility] Last Admin: 11/16/19 08:30 Dose: 25 mg Documented by: Mirtazapine (Remeron) 30 mg PO QHS [facility] Last Admin: 11/15/19 21:26 Dose: 30 mg Documented by: Ondansetron HCl (Zofran) 4 mg IV Q8H PRN PRN PRN Reason: NAUSEA/VOMITING Oxycodone HCl (Oxyir) 5 mg PO Q4H PRN PRN PRN Reason: Pain Score 4-5/10 Last Admin: 11/12/19 20:00 Dose: 5 mg Documented by: Pantoprazole Sodium (Protonix) 40 mg PO DAILY [facility] Last Admin: 11/16/19 08:30 Dose: 40 mg Documented by: Pol[facility]accharide [facility] 150[facility] Last Admin: 11/16/19 08:29 Dose: 150 mg Documented by: Senna/Docusate Sodium (Senokot-S, Payton-Colace) 2 tablet PO BID PRN PRN PRN Reason: Constipation Sodium Chloride () 10 - 40 ml IV UD PRN PRN Reason: SALINE FLUSH Last Admin: 11/14/19 12:36 Dose: 10 ml Documented by: Discharge Diet: Low fat/ Low Cholesterol, 2000 mg Sodium Diet Discharge Activity: Return to Normal Activity Home Medications: Medications to take at Discharge Amlodipine [Norvasc] 10 mg PO DAILY 11/09/15 Losartan Potassium 25 mg PO BID 11/09/15 Albuterol Inhaler [Ventolin Hfa] 2 puff INHALATION Q4H PRN PRN #1 inhaler 03/24/16 Cholecalciferol (Vitamin D3) [Vitamin D3] 2,000 unit PO BID 02/19/17 Lamotrigine [Lamictal] 200 mg PO BID 02/19/17 Pantoprazole Sodium 40 mg PO DAILY 02/19/17 Levetiracetam [Keppra] 750 mg PO QHS 11/06/17 levETIRAcetam tablet [Keppra tablet] 500 mg PO DAILY 11/06/17 Duloxetine Hcl [Cymbalta] 30 mg PO DAILY 09/27/18 Mirtazapine [Remeron] 30 mg PO QHS 11/12/19 Acetaminophen [Tylenol Tablet] 650 mg PO Q6H PRN PRN tab 11/16/19 Albuterol Aerosols [Ventolin Aerosols] 2.5 mg INHALATION Q2H PRN PRN vial.neb. 11/16/19 Enoxaparin [Lovenox] 40 mg SUBCUT DAILY syringe 11/16/19 Iron Polysaccharide Complex [Ferrex 150] 150 mg PO DAILYCM cap 11/16/19 Oxycodone [Oxyir] 5 mg PO Q4H PRN PRN 3 Days #18 tab 11/16/19 Senna/Docusate Sodium [Senokot-S] 2 tab PO BID PRN PRN tab 11/16/19 Following Prescriptions Were Given to Patient: Oxycodone [Oxyir] 5 mg PO Q4H PRN PRN 3 Days #18 tab PRN Reason: Pain Score 6-10/10 Prescription Printed Primary Care Physician: Navjot Muñoz PA [Primary Care Provider] - Please follow up with your Primary Care Physician in: 2 weeks Please Follow Up With: Fox Olson MD When: 2 weeks [facility]position[facility] facility Minutes spent on discharge:: 35 Patient Condition:: Stable Medical Necessity - Tobacco Use Smoking Status: Current every day smoker Meaningful Use Info Meaningful Use Diagnoses (Choose all that apply): None applicable
[2019-11-16 14:43] VITALS: BP 115/55; PULSE 85; RESP 18; TEMP 37.2; O2SAT 96
[2019-11-16 20:55] LABS: KEPPRA (LEVETIRACETAM) 27.3 ug/mL (10.0-40.0); Lamotrigine (Lamictal) Level 6.2 ug/mL (2.0-20.0)
== END 2019-11-16 15:57 | disposition skilled nursing facility (03) | DRG 481 ==
LOC: ED 05:02 → PCU 05:49
PROVIDERS: Internal Medicine; Physician Assistant; Specialist; Admitting Provider Hospitalist; Emergency Provider Emergency Medicine; PCP Physician Assistant; Referring Provider Hospitalist; Visit Provider Family Medicine
PROC: 0QS606Z Reposition Right Upper Femur with Intramedullary Internal Fixation Device, Open Approach (ICD-10-PCS; CPT 27245; principal; 2019-11-12 11:30)
DX: S72.141A Displaced intertrochanteric fracture of right femur, initial encounter for closed fracture (principal); E44.0 Moderate protein-calorie malnutrition; Z68.1 Body mass index [BMI] 19.9 or less, adult; D62 Acute posthemorrhagic anemia; J96.11 Chronic respiratory failure with hypoxia; W01.0XXA Fall on same level from slipping, tripping and stumbling without subsequent striking against object, initial encounter; Y93.9 Activity, unspecified; Y92.9 Unspecified place or not applicable; I10 Essential (primary) hypertension; D50.9 Iron deficiency anemia, unspecified; R13.10 Dysphagia, unspecified; M81.0 Age-related osteoporosis without current pathological fracture; G40.909 Epilepsy, unspecified, not intractable, without status epilepticus; F32.9 Major depressive disorder, single episode, unspecified; G47.00 Insomnia, unspecified; F17.200 Nicotine dependence, unspecified, uncomplicated; J44.9 Chronic obstructive pulmonary disease, unspecified; Z79.899 Other long term (current) drug therapy; Z87.01 Personal history of pneumonia (recurrent); K21.9 Gastro-esophageal reflux disease without esophagitis; G24.9 Dystonia, unspecified
CPT/HCPCS: 36415; 71045; 72170; 73502; 73552; 73600; 74230; 76000; 80048; 80053; 80177; 82306; 82542; 82607; 83540; 83550; 85014; 85018; 85025; 85027; 85610; 86850; 86900; 86901; 86920; 87635; 92526; 92610; 92611; 93005; 97110; 97116; 97162; 97166; 97530; 97802; 99285; 99406; C1713; C1776; C9803; J7040; J7050; J7120; P9016; A4216; J1940; J2405; J2916; U0003

== ENCOUNTER 2019-11-16 16:14 | Inpatient (IN) | payer MEDICARE, MEDICAID, SELFPAY ==
[2019-11-13 11:43] VITALS: BMI 17.0
[2019-11-16 16:18] VITALS: BP 136/79; PULSE 86; RESP 18; TEMP 37.5; O2SAT 96; BMI 17.8
[2019-11-16 16:45] VITALS: PULSE 86; RESP 18; O2SAT 96
[2019-11-16] MEDS: lamoTRIgine 100 MG Tablet 200 MG PO (18:10)
[2019-11-16 20:34] VITALS: O2SAT 88
--- NOTE | 2019-11-16 20:50 | HP.PCM_ITS ---
Problem List (1) Debility Status: Acute (2) Postoperative anemia Status: Acute (3) Hypertension Status: Chronic (4) Epilepsy Status: Chronic (5) Depression Status: Chronic (6) GERD (gastroesophageal reflux disease) Status: Chronic (7) COPD (chronic obstructive pulmonary disease) Status: Chronic (8) Tobacco abuse Status: Chronic (9) Tardive dyskinesia Status: Chronic (10) Fall Status: Acute (11) Closed right hip fracture Status: Acute (12) Dysphagia Status: Chronic History of Present Illness Date of Admission: 11/16/19 Chief Complaint: Here for rehabilitation, strengthening, prior to discharge home alone. 11/12/19 The patient is a 74 year old Female with below past medical history presented to [facility] Emergency Department with fall. 11/12/19 EKG normal sinus rhythm, normal EKG. 11/12/19 Chest X-ray showed COPD, no acute findings. 11/12/19 X-ray pelvis showed right femur fracture. 11/12/19 X-ray right femur showed right femur fracture. Severe right hip pain, shortened, rotated. X-ray shows right hip fracture. 11/12/19 Admit to Hospital. 11/12/19 Dr. Olson performed right hip cephalo-medullary nail. Postoperative anemia transfused with 1 unit PRBC. Iron replacement for iron deficiency. Patient choked on pills, speech therapy consulted. Speech therapy noted severe dysphagia, recommended honey thickened liquid diet. Lovenox for DVT prophylaxis. 11/16/19 Admit to TCU with debility, here for rehabilitation, strengthening, prior to discharge home alone. Past Medical History Past Medical History (Chronic Problems): Chronic Problems Dysphagia (Chronic) Hypertension (Chronic) Epilepsy (Chronic) Depression (Chronic) GERD (gastroesophageal reflux disease) (Chronic) COPD (chronic obstructive pulmonary disease) (Chronic) Tobacco abuse (Chronic) Tardive dyskinesia (Chronic) Seizure (Chronic) History of seizures (Chronic) History of hypertension (Chronic) Allergies diltiazem Allergy (Verified 11/12/19 06:37) Unknown gabapentin Allergy (Verified 11/12/19 06:37) SEVERE LEG SWELLING hydrochlorothiazide [From Dyazide] Allergy (Verified 11/12/19 06:37) Unknown metoprolol Allergy (Verified 11/12/19 06:37) Unknown phenytoin [From Dilantin] Allergy (Verified 11/12/19 06:37) TREMORS/TWITCHING triamterene Allergy (Verified 11/12/19 06:37) Unknown ciprofloxacin [From Cipro] Adverse Reaction (Verified 11/12/19 06:37) Other Home Medications: Ambulatory Orders Medication Instructions Recorded Amlodipine [Norvasc] 10 mg PO DAILY 11/09/15 Losartan Potassium 25 mg PO BID 11/09/15 Albuterol Inhaler [Ventolin Hfa] 2 puff INHALATION Q4H PRN PRN #1 03/24/16 inhaler Cholecalciferol (Vitamin D3) 2,000 unit PO BID 02/19/17 [Vitamin D3] Lamotrigine [Lamictal] 200 mg PO BID 02/19/17 Pantoprazole Sodium 40 mg PO DAILY 02/19/17 Levetiracetam [Keppra] 750 mg PO QHS 11/06/17 levETIRAcetam tablet [Keppra 500 mg PO DAILY 11/06/17 tablet] Duloxetine Hcl [Cymbalta] 30 mg PO DAILY 09/27/18 Mirtazapine [Remeron] 30 mg PO QHS 11/12/19 Acetaminophen [Tylenol Tablet] 650 mg PO Q6H PRN PRN tab 11/16/19 Albuterol Aerosols [Ventolin 2.5 mg INHALATION Q2H PRN PRN 11/16/19 Aerosols] vial.neb. Enoxaparin [Lovenox] 40 mg SUBCUT DAILY 11/16/19 Iron Polysaccharide Complex 150 mg PO DAILYCM 11/16/19 [Ferrex 150] Oxycodone [Oxyir] 5 mg PO Q4H PRN PRN 3 Days #18 tab 11/16/19 Senna/Docusate Sodium [Senokot-S] 2 tab PO BID PRN PRN tab 11/16/19 Surgical History: total hip arthroplasty, tonsillectomy, - - left hip pinning; 2 C-sections; Right hip cephalo-medullary nail. Psychiatric History: Attn. deficit disorder, Depression Lives: Alone Smoking Status: Heavy Smoker (>10/day) Tobacco Use: Cigarettes Alcohol: None Drugs: None - *Family History Sibling History Items: Diabetes, Heart Disease Review of Systems Constitutional: Denies: Chills, Fever, Weight Change HEENT: Denies: Head Aches, Sinus Congestion, Sinus Drainage Cardiovascular: Denies: Chest Pain, Palpitations Respiratory: Denies: Cough, Shortness of breath at rest, Sputum production Gastrointestinal: Denies: Abdominal Pain, Nausea, Vomiting Genitourinary: Denies: Dysuria Musculoskeletal: Denies: Joint Pain, Joint Tenderness Skin: Denies: Rash, Wounds Neurological: Denies: Numbness, Tingling, Focal weakness Psychiatric: Denies: Anxiety, Depression, Homicidal Ideations, Suicidal Ideations Hematologic/ Lymphatic: Denies: Easy Bruising, Easy Bleeding VTE Information - Inpt Only VTE Present on Admission: No VTE Mechan Device Prophylaxis: Knee High KULDEEP Hose VTE Pharm Prophylaxis ordered?: Yes Patient Problems: Active and Suspected Problems Debility (Acute) Postoperative anemia (Acute) - Physical Exam Vitals/I&O's: Vital Signs Temp Pulse Resp BP Pulse Ox 99.5 F H 86 18 136/79 H 96 11/16/19 16:18 11/16/19 16:45 11/16/19 16:45 11/16/19 16:18 11/16/19 16:45 Oxygen Flow Rate (L/min) 4 Oxygen Delivery Method Nasal Cannula Weight: 45.614 kg Body Mass Index (BMI) 17.8 Intake and Output for Last 24 Hours 11/14/19 11/15/19 11/16/19 23:59 23:59 23:59 Intake Total 120 / 120 Balance 120 / 120 General: Alert, Oriented x3, Cooperative HEENT: Atraumatic, PERRLA, EOMI, Normocephalic Neck: Supple, No JVD, Negative Carotid Bruits Lungs: Clear to auscultation, Normal air movement Cardiovascular: Regular rate, No murmurs Abdomen: Bowel Sounds Present, Soft, Non Tender Extremities: No edema, Capillary Refill Less than 3 Seconds Skin: No rashes, No breakdown Musculoskeletal: No Tenderness to Palpation of Joints or Extremities Neurological: Cranial nerves II-XII grossly intact Psych/Mental Status: Normal Affect, Appropriate Laboratory Results 11/16/19 20:22: COVID-19 (RANDI) Pending Current Medications Acetaminophen (Tylenol) 650 mg PO Q6H PRN PRN PRN Reason: Pain Score 1-10/Temp > 100.7 F Albuterol Sulfate (Ventolin Aerosols) 2.5 mg INHALATION Q2H PRN PRN PRN Reason: SOB/WHEEZING Amlodipine Besylate (Norvasc) 10 mg PO DAILY [facility] Cholecalciferol (Vitamin D (25mcg)) 2,000 unit PO BID [facility] Last Admin: 11/16/19 18:09 Dose: 2,000 unit Documented by: Duloxetine HCl (Cymbalta) 30 mg PO DAILY [facility] Lamotrigine (Lamictal) 200 mg PO BID [facility] Last Admin: 11/16/19 18:10 Dose: 200 mg Documented by: Levetiracetam (Keppra Tablet) 750 mg PO QHS [facility] Levetiracetam (Keppra Tablet) 500 mg PO DAILY [facility] Mirtazapine (Remeron) 30 mg PO QHS [facility] Oxycodone HCl (Oxyir) 5 mg PO Q4H PRN PRN PRN Reason: Pain Score 6-10/10 Pantoprazole Sodium (Protonix) 40 mg PO DAILY [facility] Polysaccharide Iron Complex (Ferrex 150) 150 mg PO DAILYCM [facility] Tuberculin PPD (Tubersol, Aplisol, Ppd) 5 tu ID X1 ONE Stop: 11/17/19 10:01 Tuberculin PPD (Tubersol, Aplisol, Ppd) 5 tu ID X1 ONE Stop: 11/24/19 10:01 Assessment/Plan All Active Problems Fall (Acute) Closed right hip fracture (Acute) Debility (Acute) Postoperative anemia (Acute) 74 year old female with below past medical history hospitalized for right hip fracture, underwent right hip cephalo-medullary nail 11/12/[address] Olson, complicated by postoperative anemia, severe dysphagia, admitted to TCU with debility, here for rehabilitation, strengthening, prior to discharge home alone. * Debility - PT/OT. * Dysphagia - ST. * Pain - Tylenol 1000MG Q8H, Oxycodone 5MG Q4H PRN pain (6-10). * Bowel - Miralax 17GM daily, Senna/colace 1 tablet BID, Dulcolax 10MG RI daily PRN. * Adult immunization - Administer Prevnar 13, Pneumovax 23, Fluzone as appropriate. * DVT prophylaxis - Lovenox 40MG SC daily. * COPD - Albuterol 2.5MG nebulized Q2H PRN. * Hypertension - Amlodipine 10MG daily. * Vitamin D deficiency - D3 2000IU BID. * Depression - Duloxetine 30MG daily. * Iron deficiency anemia - Ferrex 150MG daily. * Seizure disorder - Lamictal 200MG BID, Keppra 500MG AM, 750MG QHS. * Insomnia/Appetite loss - Mirtazapine 30MG QHS. * GERD - Pantoprazole 40MG daily.
[2019-11-16] MEDS: levETIRAcetam 750 MG Tablet PO (21:33)
[2019-11-16] MEDS: Mirtazapine 30 MG Tablet PO (21:34)
[2019-11-16] MEDS: Acetaminophen 500 MG Tablet 1000 MG PO (21:39)
[2019-11-17 05:40] VITALS: BP 124/56; PULSE 77; RESP 18; TEMP 36.6; O2SAT 98
[2019-11-17] MEDS: DULoxetine Hcl 30 MG Capsule PO (05:43)
[2019-11-17 05:44] LABS: Absolute Lymphocyte Count 0.76 X10^3/uL (0.83-4.51); Absolute Neutrophil Count 8.2 X10^3/uL (2.0-7.7); Basophil# 0.04 X10^3/uL; Basophil% 0.4 % (0-1); Hematocrit 29.9 % (37-47); Hemoglobin 9.6 g/dL (12.0-15.0); Lymphocyte # 0.76 X10^3/ul (4.0); Lymphocyte % 7.4 % (19-41); Mean Corp Hgb Conc 32.1 g/dL (32-36); Mean Corpuscular Hgb 28.4 pg (27.0-32.0); Mean Corpuscular Volume 88.5 fL (81-99); Mean Platelet Vol. 9.4 fl (6.2-12.0); Monocyte# 1.14 X10^3/uL; Monocyte% 11.1 % (0-10); NRBC Flagged by Analyzer 0 % (0-5); Neutrophil # 8.24 X10^3/uL (2.7-7.7); Neutrophil % 80.5 % (47-70); Platelet Count 312 K/mm3 (150-450); RBC Distribution Width CV 15.7 % (11.6-14.6); RBC Distribution Width SD 49.8 fl (35.1-43.9); Red Blood Count 3.38 M/mm3 (4.2-5.4); White Blood Count 10.2 K/mm3 (4.4-11.0)
[2019-11-17] MEDS: amLODIPine 10 MG Tablet PO (05:44)
[2019-11-17] MEDS: Pantoprazole Sodium 40 MG Tablet PO (05:44)
[2019-11-17] MEDS: levETIRAcetam 500 MG Tablet PO (05:44)
[2019-11-17] MEDS: lamoTRIgine 100 MG Tablet 200 MG PO ×2 (05:44→17:49)
[2019-11-17] MEDS: Enoxaparin 40 MG/0.4 ML Syringe SC (05:45)
[2019-11-17] MEDS: Polyethylene Glycol 3350 17 GM PACKET PO (05:45)
[2019-11-17] MEDS: Senna/Docusate Sodium 1 Tablet PO (05:45)
[2019-11-17] MEDS: Acetaminophen 500 MG Tablet 1000 MG PO ×3 (05:45→21:15)
[2019-11-17 06:00] LABS: Anion Gap 5 (5-15); BUN 23 mg/dL (7-18); BUN/Creat Ratio 41.1 RATIO (10-20); Calcium,Total 8.3 mg/dL (8.5-10.1); Chloride 105 mmol/L (98-107); Creatinine, Serum 0.56 mg/dL (0.55-1.02); EST Glomerular Filtration Rate 113 mL/min (>60); Est Glom Filt Rate - Afr Amer 136 mL/min (>60); Estimated Creatinine Clearance 36.08 ml/min; Glucose 98 mg/dL (74-106); Potassium 3.4 mmol/L (3.5-5.1); Sodium Level 138 mmol/L (136-145)
[2019-11-17] MEDS: Iron Polysaccharide Complex 150 MG CAPSULE PO (07:55)
[2019-11-17] MEDS: Tuberculin,Purif.prot.deriv. 50 TU/ML Vial 5 ML ID (10:43)
[2019-11-17 10:45] VITALS: PULSE 82; RESP 18; O2SAT 92
--- NOTE | 2019-11-17 12:01 | NURSING ---
UP DATED PT DAUGHTER.
--- NOTE | 2019-11-17 13:47 | CASEMGMT ---
Social Work Discussed code status with pt. Pt requesting full code. Notified nursing. MOLST form completed and placed in chart. JOVANNY Chowdhury PILOT SAFETY INSPECTOR
[2019-11-17 14:05] VITALS: O2SAT 90
--- NOTE | 2019-11-17 14:44 | NURSING ---
this nurse found pt walking into bath room. asked pt if she called for help and pt stated i didnt have time. educated pt on use of call light. pa applied. RN aware.
[2019-11-17 15:07] VITALS: BP 114/41; PULSE 79; RESP 16; TEMP 36.2; O2SAT 95
--- NOTE | 2019-11-17 15:10 | PHA.CONS_ITS ---
<Radha Cooper - Last Filed: 11/17/19 15:10> Progress Note - Pharmacy Subjective: TCU Admission Objective: Allergies diltiazem Allergy (Verified 11/12/19 06:37) Unknown gabapentin Allergy (Verified 11/12/19 06:37) SEVERE LEG SWELLING hydrochlorothiazide [From Dyazide] Allergy (Verified 11/12/19 06:37) Unknown metoprolol Allergy (Verified 11/12/19 06:37) Unknown phenytoin [From Dilantin] Allergy (Verified 11/12/19 06:37) TREMORS/TWITCHING triamterene Allergy (Verified 11/12/19 06:37) Unknown ciprofloxacin [From Cipro] Adverse Reaction (Verified 11/12/19 06:37) Other Current Medications Generic Name Dose Route Start Last Admin Trade Name Freq PRN Reason Stop Dose Admin Acetaminophen 1,000 mg 11/16/19 22:00 11/17/19 14:43 Tylenol PO 1,000 mg Q8 JEAN CARLOS Administration Albuterol Sulfate 2.5 mg 11/16/19 16:43 Ventolin Aerosols INHALATION Q2H PRN PRN SOB/WHEEZING Amlodipine Besylate 10 mg 11/17/19 06:00 11/17/19 05:44 Norvasc PO 10 mg DAILY JEAN CARLOS Administration Bisacodyl 10 mg 11/16/19 21:04 Dulcolax RECTAL DAILY PRN Constipation Calamine/Phenol 1 applic 11/17/19 18:00 Calmoseptine Ointment TOPICAL BID [facility] Protocol Cholecalciferol 2,000 unit 11/16/19 18:00 11/17/19 05:44 Vitamin D (25mcg) PO 2,000 unit BID JEAN CARLOS Administration Duloxetine HCl 30 mg 11/17/19 06:00 11/17/19 05:43 Cymbalta PO 30 mg DAILY JEAN CARLOS Administration Enoxaparin Sodium 40 mg 11/17/19 06:00 11/17/19 05:45 Lovenox SC 40 mg DAILY@0600 JEAN CARLOS Administration Lamotrigine 200 mg 11/16/19 18:00 11/17/19 05:44 Lamictal PO 200 mg BID JEAN CARLOS Administration Levetiracetam 750 mg 11/16/19 22:00 11/16/19 21:33 Keppra Tablet PO 750 mg QHS JEAN CARLOS Administration Levetiracetam 500 mg 11/17/19 06:00 11/17/19 05:44 Keppra Tablet PO 500 mg DAILY JEAN CARLOS Administration Mirtazapine 30 mg 11/16/19 22:00 11/16/19 21:34 Remeron PO 30 mg QHS JEAN CARLOS Administration Nutritional Formula (Lactose Free) 120 ml 11/17/19 06:00 11/17/19 11:00 Ensure Enlive PO 120 ml 4X/DAY JEAN CARLOS Administration Oxycodone HCl 5 mg 11/16/19 16:43 Oxyir PO Q4H PRN PRN Pain Score 6-10/10 Pantoprazole Sodium 40 mg 11/17/19 06:00 11/17/19 05:44 Protonix PO 40 mg DAILY JEAN CARLOS Administration Polyethylene Glycol 17 gm 11/17/19 06:00 11/17/19 05:45 Miralax PO 17 gm DAILY JEAN CARLOS Administration Polysaccharide Iron Complex 150 mg 11/17/19 08:00 11/17/19 07:55 Ferrex 150 PO 150 mg DAILYCM JEAN CARLOS Administration Potassium Chloride 10 meq 11/18/19 08:00 [facility] Senna/Docusate Sodium 1 tablet 11/17/19 06:00 11/17/19 05:45 Senokot-S, Payton-Colace PO 1 tablet BID JEAN CARLOS Administration Tuberculin PPD 5 tu 11/24/19 10:00 Tubersol, Aplisol, Ppd ID 11/24/19 10:01 X1 ONE Problem List Debility (Acute) Postoperative anemia (Acute) Hypertension (Chronic) Epilepsy (Chronic) Depression (Chronic) GERD (gastroesophageal reflux disease) (Chronic) COPD (chronic obstructive pulmonary disease) (Chronic) Tobacco abuse (Chronic) Tardive dyskinesia (Chronic) Vital Signs Temp Pulse Resp BP Pulse Ox 97.2 F L 79 16 114/41 L 95 11/17/19 15:07 11/17/19 15:07 11/17/19 15:07 11/17/19 15:07 11/17/19 15:07 Oxygen Flow Rate (L/min) 4 Oxygen Delivery Method Nasal Cannula Weight: 45.767 kg Body Mass Index (BMI) 17.8 Sodium 138 mmol/L (136-145) 11/17/19 05:15 Potassium 3.4 mmol/L (3.5-5.1) L 11/17/19 05:15 Chloride 105 mmol/L (98-107) 11/17/19 05:15 Carbon Dioxide 28.0 mmol/L (21.0-32.0) 11/17/19 05:15 Anion Gap 5 (5-15) 11/17/19 05:15 BUN 23 mg/dL (7-18) H 11/17/19 05:15 Creatinine 0.56 mg/dL (0.55-1.02) 11/17/19 05:15 Est GFR (MDRD) Af Amer 136 mL/min (>60) 11/17/19 05:15 Est GFR (MDRD) Non-Af 113 mL/min (>60) 11/17/19 05:15 BUN/Creatinine Ratio 41.1 RATIO (10-20) H 11/17/19 05:15 Glucose 98 mg/dL (74-106) 11/17/19 05:15 Assessment/Plan: 1. Pain: acetaminophen 1000mg PO Q8H and oxycodone 5mg PO Q4H PRN pain 6-12/04. Please continue to monitor for increased pain and PRN usage. 2. DVT prophylaxis: enoxaparin 40mg SC daily. Please continue to monitor for S/S of bleeding/DVT, renal function and platelets (last 312). 3. COPD: albuterol 2.5mg nebulized Q2H PRN shortness of breath. Please continue to monitor for signs/symptoms of shortness of breath, exacerbation, and PRN medication use. 4. Seizure Disorder: lamotrigine 200mg PO BID, levetiracetam 500mg PO QAM and 750mg PO QHS. Please continue to monitor for signs/symptoms of seizures. Recent levels for both lamotrigine and levetiracetam in patient's chart and WNL. 5. Iron deficiency anemia: Ferrex 150mg PO DAILYCM. Please continue to monitor hemoglobin (last 9.6 g/dL) and for dark stools. 6. Hypertension: amlodipine 10 mg PO daily. Please continue to monitor for signs/symptoms of hyper- or hypo-tension, blood pressure (last 114/41), and swelling of hands/feet. 7. GERD: pantoprazole 40mg PO daily. Please continue to monitor for signs/symptoms of esophageal reflux. Please also consider non-pharmacologic therapies to help with decreasing symptoms. 8. Vitamin D/Potassium Deficiency: cholecalciferol 2000 IU PO BID and potassium chloride 10 mEq PO DAILYCM. Please continue to monitor levels (last 3.4mmol/L) and signs/symptoms of toxicity. Recent vitamin D level in patient's chart and WNL. Psychotropic Medications: *1. Depression: duloxetine 30mg PO daily. Please consider GDR by 04/2020 if clinically appropriate. Thanks. 2. Insomnia/appetite loss: mirtazapine 30mg PO QHS. Patient with poor appetite per claim clerk notes. GDR not appropriate. Please continue to monitor for excessive drowsiness and improved appetite. Unnecessary Medications: None Bowel Regimen: Miralax 17gm PO daily, senna/docusate 1T PO BID, and bisacodyl 10mg [place] daily PRN constipation. Please continue to monitor for S/S of constipation, diarrhea, and PRN usage. Date of Note:: 11/17/19 - Provider Comments Provider responsibility: Provider responsible to enter orders to implement recommendations <Williams Bird Chi - Last Filed: 11/17/19 20:13> Progress Note - Pharmacy Subjective: [] Objective: Allergies diltiazem Allergy (Verified 11/12/19 06:37) Unknown gabapentin Allergy (Verified 11/12/19 06:37) SEVERE LEG SWELLING hydrochlorothiazide [From Dyazide] Allergy (Verified 11/12/19 06:37) Unknown metoprolol Allergy (Verified 11/12/19 06:37) Unknown phenytoin [From Dilantin] Allergy (Verified 11/12/19 06:37) TREMORS/TWITCHING triamterene Allergy (Verified 11/12/19 06:37) Unknown ciprofloxacin [From Cipro] Adverse Reaction (Verified 11/12/19 06:37) Other Current Medications Generic Name Dose Route Start Last Admin Trade Name Freq PRN Reason Stop Dose Admin Acetaminophen 1,000 mg 11/16/19 22:00 11/17/19 14:43 Tylenol PO 1,000 mg Q8 JEAN CARLOS Administration Albuterol Sulfate 2.5 mg 11/16/19 16:43 Ventolin Aerosols INHALATION Q2H PRN PRN SOB/WHEEZING Amlodipine Besylate 10 mg 11/17/19 06:00 11/17/19 05:44 Norvasc PO 10 mg DAILY JEAN CARLOS Administration Bisacodyl 10 mg 11/16/19 21:04 Dulcolax RECTAL DAILY PRN Constipation Calamine/Phenol 1 applic 11/17/19 18:00 11/17/19 17:51 Calmoseptine Ointment TOPICAL 1 applicatio BID JEAN CARLOS Administration Protocol Cholecalciferol 2,000 unit 11/16/19 18:00 11/17/19 17:48 Vitamin D (25mcg) PO 2,000 unit BID JEAN CARLOS Administration Duloxetine HCl 30 mg 11/17/19 06:00 11/17/19 05:43 Cymbalta PO 30 mg DAILY JEAN CARLOS Administration Enoxaparin Sodium 40 mg 11/17/19 06:00 11/17/19 05:45 Lovenox SC 40 mg DAILY@0600 JEAN CARLOS Administration Lamotrigine 200 mg 11/16/19 18:00 11/17/19 17:49 Lamictal PO 200 mg BID [facility] Administration Levetiracetam 750 mg 11/16/19 22:00 11/16/19 21:33 Keppra Tablet PO 750 mg QHS [facility] Administration Levetiracetam 500 mg 11/17/19 06:00 11/17/19 05:44 Keppra Tablet PO 500 mg DAILY [facility] Administration Mirtazapine 30 mg 11/16/19 22:00 11/16/19 21:34 Remeron PO 30 mg QHS [facility] Administration Oxycodone HCl 5 mg 11/16/19 16:43 Oxyir PO Q4H PRN PRN Pain Score 6-10/10 Pantoprazole Sodium 40 mg 11/17/19 06:00 11/17/19 05:44 Protonix PO 40 mg DAILY [facility] Administration Polyethylene Glycol 17 gm 11/17/19 06:00 11/17/19 05:45 Miralax PO 17 gm DAILY [facility] Administration Polysaccharide Iron Complex 150 mg 11/17/19 08:00 11/17/19 07:55 Ferrex 150 PO 150 mg DAILYCM [facility] Administration Potassium Chloride 10 meq 11/18/19 08:00 K-Dur PO DAILYCM [facility] Senna/Docusate Sodium 1 tablet 11/17/19 06:00 11/17/19 17:48 Senokot-S, Payton-Colace PO Not Given BID [facility] Tuberculin PPD 5 tu 11/24/19 10:00 Tubersol, Aplisol, Ppd ID 11/24/19 10:01 X1 ONE Problem List Debility (Acute) Postoperative anemia (Acute) Hypertension (Chronic) Epilepsy (Chronic) Depression (Chronic) GERD (gastroesophageal reflux disease) (Chronic) COPD (chronic obstructive pulmonary disease) (Chronic) Tobacco abuse (Chronic) Tardive dyskinesia (Chronic) Vital Signs Temp Pulse Resp BP Pulse Ox 97.2 F L 79 16 114/41 L 95 11/17/19 15:07 11/17/19 15:07 11/17/19 15:07 11/17/19 15:07 11/17/19 15:07 Oxygen Flow Rate (L/min) 4 Oxygen Delivery Method Nasal Cannula Weight: 45.767 kg Body Mass Index (BMI) 17.8 Sodium 138 mmol/L (136-145) 11/17/19 05:15 Potassium 3.4 mmol/L (3.5-5.1) L 11/17/19 05:15 Chloride 105 mmol/L (98-107) 11/17/19 05:15 Carbon Dioxide 28.0 mmol/L (21.0-32.0) 11/17/19 05:15 Anion Gap 5 (5-15) 11/17/19 05:15 BUN 23 mg/dL (7-18) H 11/17/19 05:15 Creatinine 0.56 mg/dL (0.55-1.02) 11/17/19 05:15 Est GFR (MDRD) Af Amer 136 mL/min (>60) 11/17/19 05:15 Est GFR (MDRD) Non-Af 113 mL/min (>60) 11/17/19 05:15 BUN/Creatinine Ratio 41.1 RATIO (10-20) H 11/17/19 05:15 Glucose 98 mg/dL (74-106) 11/17/19 05:15 Assessment/Plan: Psychotropic Medications: Unnecessary Medications: Bowel Regimen: - Provider Comments Provider responsibility: Provider responsible to enter orders to implement recommendations Provider Comments to Recommendations by Pharmacy: Agree
[2019-11-17] MEDS: Menthol/Lanolin/Calamine/Znox 113 GM Tube 1 APPLIC TOPICAL (17:51)
[2019-11-17] MEDS: Mirtazapine 30 MG Tablet PO (21:15)
[2019-11-17] MEDS: levETIRAcetam 750 MG Tablet PO (21:15)
[2019-11-18] MEDS: levETIRAcetam 500 MG Tablet PO (06:18)
[2019-11-18] MEDS: lamoTRIgine 100 MG Tablet 200 MG PO ×2 (06:18→17:32)
[2019-11-18] MEDS: Pantoprazole Sodium 40 MG Tablet PO (06:18)
[2019-11-18] MEDS: Acetaminophen 500 MG Tablet 1000 MG PO ×3 (06:18→21:03)
[2019-11-18] MEDS: Enoxaparin 40 MG/0.4 ML Syringe SC (06:18)
[2019-11-18] MEDS: DULoxetine Hcl 30 MG Capsule PO (06:18)
[2019-11-18] MEDS: amLODIPine 10 MG Tablet PO (06:18)
[2019-11-18] MEDS: Menthol/Lanolin/Calamine/Znox 113 GM Tube 1 APPLIC TOPICAL ×2 (06:30→17:33)
[2019-11-18 06:31] VITALS: BP 157/73; PULSE 88; RESP 18; TEMP 36.1; O2SAT 96
[2019-11-18 06:45] LABS: Bedside Glucose 96 mg/dL (70-110)
[2019-11-18] MEDS: Iron Polysaccharide Complex 150 MG CAPSULE PO (07:58)
[2019-11-18] MEDS: oxyCODONE 5 MG Tablet PO (12:32)
[2019-11-18 13:57] VITALS: BP 97/54; PULSE 82; RESP 20; TEMP 36.1; O2SAT 94
--- NOTE | 2019-11-18 14:24 | NURSING ---
Called patients daughter, no answer and message stated voicemail is full.
[2019-11-18] MEDS: Mirtazapine 30 MG Tablet PO (21:03)
[2019-11-18] MEDS: levETIRAcetam 750 MG Tablet PO (21:03)
[2019-11-18 21:15] VITALS: PULSE 82; O2SAT 94
[2019-11-19] MEDS: Senna/Docusate Sodium 1 Tablet PO ×2 (05:57→18:05)
[2019-11-19] MEDS: DULoxetine Hcl 30 MG Capsule PO (05:57)
[2019-11-19] MEDS: levETIRAcetam 500 MG Tablet PO (05:57)
[2019-11-19] MEDS: amLODIPine 10 MG Tablet PO (05:57)
[2019-11-19] MEDS: lamoTRIgine 100 MG Tablet 200 MG PO ×2 (05:57→18:05)
[2019-11-19] MEDS: Enoxaparin 40 MG/0.4 ML Syringe SC (05:57)
[2019-11-19] MEDS: Acetaminophen 500 MG Tablet 1000 MG PO ×3 (05:57→21:17)
[2019-11-19] MEDS: Pantoprazole Sodium 40 MG Tablet PO (05:57)
[2019-11-19 05:58] VITALS: BP 157/63; PULSE 96; RESP 19; TEMP 36.6; O2SAT 93
[2019-11-19] MEDS: Polyethylene Glycol 3350 17 GM PACKET PO (05:58)
[2019-11-19] MEDS: Menthol/Lanolin/Calamine/Znox 113 GM Tube 1 APPLIC TOPICAL ×2 (05:58→18:05)
[2019-11-19 06:50] VITALS: O2SAT 91
[2019-11-19] MEDS: Iron Polysaccharide Complex 150 MG CAPSULE PO (08:01)
--- NOTE | 2019-11-19 13:22 | CASEMGMT ---
Social Work Spoke with patient's daughter about DC plans what pt needs to do to return home. Dtr and grandson are both w/c bound and cannot assist pt. 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 Dtr stated they can prepare their own meals but cannot complete laundry. In order for pt to return home, she would need to be ambulating on her own with FWW, and be independent with ADLs. Pt does have Medicaid secondary and has Passport services - so does the dtr and grandson (Waiver) but pt does not like people in the house much so she has not utilized many of the services. An aide assists with their bathing but not personal tasks just individual tasks, per the dtr. Pt has f/u appt with ortho 11/25 to determine WBS. Also, scheduled care plan meeting with dtr 11/24 to further discuss progress and needs. Will continue to follow. JOVANNY ChowdhuryW
--- NOTE | 2019-11-19 13:28 | NURSING ---
Spoke with Dr. Olson's office, pt has appt on 11/26/19 and the will remove the paola at that time.
[2019-11-19 15:07] VITALS: BP 142/47; PULSE 89; RESP 20; TEMP 36.8; O2SAT 97
[2019-11-19] MEDS: levETIRAcetam 750 MG Tablet PO (21:18)
[2019-11-19] MEDS: Mirtazapine 30 MG Tablet PO (21:18)
[2019-11-20 06:10] LABS: Anion Gap 3 (5-15); BUN 17 mg/dL (7-18); BUN/Creat Ratio 29.8 RATIO (10-20); Calcium,Total 8.7 mg/dL (8.5-10.1); Chloride 105 mmol/L (98-107); Creatinine, Serum 0.57 mg/dL (0.55-1.02); EST Glomerular Filtration Rate 110 mL/min (>60); Est Glom Filt Rate - Afr Amer 134 mL/min (>60); Glucose 91 mg/dL (74-106); Potassium 4.3 mmol/L (3.5-5.1); Sodium Level 138 mmol/L (136-145)
[2019-11-20] MEDS: Enoxaparin 40 MG/0.4 ML Syringe SC (06:15)
[2019-11-20] MEDS: Senna/Docusate Sodium 1 Tablet PO ×2 (06:15→17:16)
[2019-11-20] MEDS: Acetaminophen 500 MG Tablet 1000 MG PO ×3 (06:15→21:05)
[2019-11-20] MEDS: lamoTRIgine 100 MG Tablet 200 MG PO ×2 (06:15→17:15)
[2019-11-20] MEDS: amLODIPine 10 MG Tablet PO (06:16)
[2019-11-20] MEDS: Pantoprazole Sodium 40 MG Tablet PO (06:16)
[2019-11-20] MEDS: levETIRAcetam 500 MG Tablet PO (06:16)
[2019-11-20] MEDS: DULoxetine Hcl 30 MG Capsule PO (06:16)
[2019-11-20] MEDS: Menthol/Lanolin/Calamine/Znox 113 GM Tube 1 APPLIC TOPICAL ×2 (06:16→17:13)
[2019-11-20 06:20] VITALS: BP 143/59; PULSE 66; RESP 18; TEMP 36.8; O2SAT 93
[2019-11-20 07:31] VITALS: O2SAT 94
[2019-11-20] MEDS: Iron Polysaccharide Complex 150 MG CAPSULE PO (09:05)
[2019-11-20 13:29] VITALS: O2SAT 90
[2019-11-20 14:06] VITALS: BP 141/64; PULSE 82; RESP 20; TEMP 37.2; O2SAT 93
--- NOTE | 2019-11-20 15:15 | NURSING ---
CALLED DAUGHTER TO GIVE UP DATE NO ANSWER.
[2019-11-20] MEDS: Mirtazapine 30 MG Tablet PO (21:05)
[2019-11-20] MEDS: levETIRAcetam 750 MG Tablet PO (21:06)
[2019-11-21 06:01] VITALS: BP 157/71; PULSE 91; RESP 18; TEMP 36.9; O2SAT 93
[2019-11-21] MEDS: Polyethylene Glycol 3350 17 GM PACKET PO (06:05)
[2019-11-21] MEDS: amLODIPine 10 MG Tablet PO (06:06)
[2019-11-21] MEDS: lamoTRIgine 100 MG Tablet 200 MG PO ×2 (06:07→17:49)
[2019-11-21] MEDS: Acetaminophen 500 MG Tablet 1000 MG PO ×3 (06:07→21:09)
[2019-11-21] MEDS: Senna/Docusate Sodium 1 Tablet PO (06:07)
[2019-11-21] MEDS: Pantoprazole Sodium 40 MG Tablet PO (06:07)
[2019-11-21] MEDS: DULoxetine Hcl 30 MG Capsule PO (06:07)
[2019-11-21] MEDS: Enoxaparin 40 MG/0.4 ML Syringe SC (06:08)
[2019-11-21] MEDS: levETIRAcetam 500 MG Tablet PO (06:08)
[2019-11-21] MEDS: Menthol/Lanolin/Calamine/Znox 113 GM Tube 1 APPLIC TOPICAL ×2 (06:12→17:52)
[2019-11-21] MEDS: Iron Polysaccharide Complex 150 MG CAPSULE PO (08:00)
[2019-11-21 14:01] VITALS: BP 126/59; PULSE 80; RESP 18; TEMP 36.7; O2SAT 97
[2019-11-21 15:06] VITALS: O2SAT 91
[2019-11-21] MEDS: levETIRAcetam 750 MG Tablet PO (21:10)
[2019-11-21] MEDS: Mirtazapine 30 MG Tablet PO (21:10)
[2019-11-22 04:46] VITALS: BP 160/75; PULSE 97; RESP 18; TEMP 36.9; O2SAT 90
[2019-11-22] MEDS: lamoTRIgine 100 MG Tablet 200 MG PO ×2 (04:48→18:04)
[2019-11-22] MEDS: Senna/Docusate Sodium 1 Tablet PO ×2 (04:48→18:07)
[2019-11-22] MEDS: Menthol/Lanolin/Calamine/Znox 113 GM Tube 1 APPLIC TOPICAL ×2 (04:48→18:26)
[2019-11-22] MEDS: DULoxetine Hcl 30 MG Capsule PO (04:49)
[2019-11-22] MEDS: Pantoprazole Sodium 40 MG Tablet PO (04:49)
[2019-11-22] MEDS: Enoxaparin 40 MG/0.4 ML Syringe SC (04:49)
[2019-11-22] MEDS: Acetaminophen 500 MG Tablet 1000 MG PO ×3 (04:50→21:26)
[2019-11-22] MEDS: amLODIPine 10 MG Tablet PO (04:50)
[2019-11-22] MEDS: levETIRAcetam 500 MG Tablet PO (04:51)
[2019-11-22 06:52] VITALS: O2SAT 91
[2019-11-22] MEDS: Iron Polysaccharide Complex 150 MG CAPSULE PO (07:35)
[2019-11-22 14:29] VITALS: BP 118/57; PULSE 83; RESP 20; TEMP 36.9; O2SAT 91
--- NOTE | 2019-11-22 17:50 | NURSING ---
11/20 pt removed from 1L Oxygen,spo2 holding @ 91-90%, dimensional integration engineer added O2 at Hs for Spo2 88%, 11/21 Oxygen removed during day today, no c/o of SOB, Spo2 remains 91-90%
[2019-11-22] MEDS: levETIRAcetam 750 MG Tablet PO (21:26)
[2019-11-22] MEDS: Mirtazapine 30 MG Tablet PO (21:26)
[2019-11-22 21:27] VITALS: PULSE 84; RESP 22; O2SAT 91
--- NOTE | 2019-11-22 21:28 | NURSING ---
Addendum entered by Janie Blackburn 11/22/19 21:33: Patient ambulated to restroom. Oxygen decreased to 87-88% with ambulation from Chair to restroom. Oxygen applied at 1.5 LPM. Oxygen increased to 91% Original Note: Patient resting in chair Oxygen Saturation at 91% room air. Will continue to monitor.
[2019-11-23] MEDS: Acetaminophen 500 MG Tablet 1000 MG PO ×3 (05:30→20:25)
[2019-11-23] MEDS: Pantoprazole Sodium 40 MG Tablet PO (05:30)
[2019-11-23] MEDS: lamoTRIgine 100 MG Tablet 200 MG PO ×2 (05:30→17:33)
[2019-11-23] MEDS: Senna/Docusate Sodium 1 Tablet PO ×2 (05:30→17:33)
[2019-11-23] MEDS: levETIRAcetam 500 MG Tablet PO (05:30)
[2019-11-23] MEDS: DULoxetine Hcl 30 MG Capsule PO (05:31)
[2019-11-23] MEDS: Enoxaparin 40 MG/0.4 ML Syringe SC (05:31)
[2019-11-23] MEDS: amLODIPine 10 MG Tablet PO (05:31)
[2019-11-23] MEDS: Menthol/Lanolin/Calamine/Znox 113 GM Tube 1 APPLIC TOPICAL ×2 (05:32→17:33)
[2019-11-23 05:33] VITALS: BP 158/61; PULSE 81; RESP 16; TEMP 37.1; O2SAT 96
[2019-11-23 06:52] VITALS: O2SAT 94
[2019-11-23] MEDS: Iron Polysaccharide Complex 150 MG CAPSULE PO (07:54)
[2019-11-23 13:36] VITALS: BP 122/56; PULSE 81; RESP 16; TEMP 36.9; O2SAT 93
--- NOTE | 2019-11-23 14:42 | PT ---
With activity, pt was able to maintain SPO2 at 91-92% while on room air. At rest, pt's SPO2 was 94% while on room air. Pt was without O2 during therapy session and was able to maintain SPO2 between 91-94% with activity and at rest. Reported to DISASTER OR DAMAGE CONTROL SPECIALIST.
[2019-11-23] MEDS: Mirtazapine 30 MG Tablet PO (20:25)
[2019-11-23] MEDS: levETIRAcetam 750 MG Tablet PO (20:26)
[2019-11-24 03:29] VITALS: BP 155/74; PULSE 85; RESP 18; TEMP 37; O2SAT 90
[2019-11-24 05:43] LABS: Anion Gap 6 (5-15); BUN 26 mg/dL (7-18); BUN/Creat Ratio 39.8 RATIO (10-20); Calcium,Total 8.5 mg/dL (8.5-10.1); Chloride 107 mmol/L (98-107); Creatinine, Serum 0.65 mg/dL (0.55-1.02); EST Glomerular Filtration Rate 94 mL/min (>60); Est Glom Filt Rate - Afr Amer 114 mL/min (>60); Glucose 87 mg/dL (74-106); Potassium 4.3 mmol/L (3.5-5.1); Sodium Level 136 mmol/L (136-145)
[2019-11-24] MEDS: Enoxaparin 40 MG/0.4 ML Syringe SC (05:46)
[2019-11-24] MEDS: DULoxetine Hcl 30 MG Capsule PO (05:47)
[2019-11-24] MEDS: levETIRAcetam 500 MG Tablet PO (05:47)
[2019-11-24] MEDS: Menthol/Lanolin/Calamine/Znox 113 GM Tube 1 APPLIC TOPICAL ×2 (05:47→18:09)
[2019-11-24] MEDS: Senna/Docusate Sodium 1 Tablet PO ×2 (05:47→18:11)
[2019-11-24] MEDS: Pantoprazole Sodium 40 MG Tablet PO (05:47)
[2019-11-24] MEDS: lamoTRIgine 100 MG Tablet 200 MG PO ×2 (05:47→18:11)
[2019-11-24] MEDS: Acetaminophen 500 MG Tablet 1000 MG PO ×3 (05:47→22:24)
[2019-11-24] MEDS: amLODIPine 10 MG Tablet PO (05:47)
[2019-11-24 06:40] LABS: Absolute Lymphocyte Count 1.47 X10^3/uL (0.83-4.51); Absolute Neutrophil Count 7.3 X10^3/uL (2.0-7.7); Basophil# 0.05 X10^3/uL; Basophil% 0.5 % (0-1); Hematocrit 33.8 % (37-47); Hemoglobin 10.3 g/dL (12.0-15.0); Lymphocyte # 1.47 X10^3/ul (4.0); Lymphocyte % 15.4 % (19-41); Mean Corp Hgb Conc 30.5 g/dL (32-36); Mean Corpuscular Hgb 28.2 pg (27.0-32.0); Mean Corpuscular Volume 92.6 fL (81-99); Mean Platelet Vol. 8.6 fl (6.2-12.0); Monocyte# 0.72 X10^3/uL; Monocyte% 7.5 % (0-10); NRBC Flagged by Analyzer 0 % (0-5); Neutrophil # 7.27 X10^3/uL (2.7-7.7); Platelet Count 649 K/mm3 (150-450); RBC Distribution Width CV 16.6 % (11.6-14.6); RBC Distribution Width SD 55.4 fl (35.1-43.9); Red Blood Count 3.65 M/mm3 (4.2-5.4); White Blood Count 9.6 K/mm3 (4.4-11.0)
[2019-11-24 07:12] VITALS: O2SAT 95
[2019-11-24] MEDS: Iron Polysaccharide Complex 150 MG CAPSULE PO (08:26)
[2019-11-24 08:40] VITALS: PULSE 84; RESP 18; O2SAT 91
[2019-11-24] MEDS: Tuberculin,Purif.prot.deriv. 50 TU/ML Vial 5 ML ID (10:16)
[2019-11-24 14:42] VITALS: BP 114/56; PULSE 86; RESP 18; TEMP 36.6; O2SAT 91
--- NOTE | 2019-11-24 15:30 | NURSING ---
CALLED DAUGHTER AND UPDATED HER ON HER MOM.
[2019-11-24] MEDS: Mirtazapine 30 MG Tablet PO (22:25)
[2019-11-24] MEDS: levETIRAcetam 750 MG Tablet PO (22:25)
[2019-11-25 05:00] VITALS: BP 144/65; PULSE 79; RESP 18; TEMP 36.7; O2SAT 92
[2019-11-25] MEDS: Enoxaparin 40 MG/0.4 ML Syringe SC (05:22)
[2019-11-25] MEDS: amLODIPine 10 MG Tablet PO (05:22)
[2019-11-25] MEDS: levETIRAcetam 500 MG Tablet PO (05:22)
[2019-11-25] MEDS: Acetaminophen 500 MG Tablet 1000 MG PO ×3 (05:22→20:54)
[2019-11-25] MEDS: DULoxetine Hcl 30 MG Capsule PO (05:22)
[2019-11-25] MEDS: Senna/Docusate Sodium 1 Tablet PO ×2 (05:22→17:35)
[2019-11-25] MEDS: Pantoprazole Sodium 40 MG Tablet PO (05:22)
[2019-11-25] MEDS: lamoTRIgine 100 MG Tablet 200 MG PO ×2 (05:22→17:35)
[2019-11-25] MEDS: Menthol/Lanolin/Calamine/Znox 113 GM Tube 1 APPLIC TOPICAL ×2 (05:23→17:50)
[2019-11-25 07:27] VITALS: O2SAT 93
[2019-11-25] MEDS: Iron Polysaccharide Complex 150 MG CAPSULE PO (07:54)
--- NOTE | 2019-11-25 09:25 | CASEMGMT ---
Social Work IDT met with patient and dtr via conference call for care plan meeting. Discussed patient's progress in therapy. Pt is SBA/sup for bed mobility, transfers and ambulation 45ft with FWW. Pt is unable to maintain TTWB on RLE, but pt not having pain with mobility. Pt is using 2# wts for LE exercises. Pt is UE ADLS set up at seated level, SBA for LE ADLS, SBA for toileting. Pt is mech soft/honey thick liquids and likely going home on thickener, distant supervision with meals. ST is working on pharyngeal strengthening exercises and compensatory strategy training. ST recommending pt have repeat MBS prior to any upgrade in diet. Pt is enjoying crocheting in room. Pt is on a minced, moist diet, controlling lactose intake. Pt is 50-100% intake and declines nutritional supplement. Pt is out of isolation 11/29, and is on room air currently. Pt has f/u appt with ortho 11/25 and pt is hoping for increase in WBS. Pt needs upgrade in WBS to return home as she cannot care for dtr and grandson with TTWBS. If pt does not get increase, provided pt with SNF list to chose for pt to transfer under Medicaid benefit until pt can safely return home. Pt would like to DC home instead of SNF. Explained [facility] NRD 11/26 and continued stay is not guaranteed. Will continue to follow. Mona Smith ,ROOM SERVICE RUNNER UX SPECIALIST
[2019-11-25 14:41] VITALS: BP 121/51; PULSE 78; RESP 18; TEMP 36.7; O2SAT 92
[2019-11-25] MEDS: levETIRAcetam 750 MG Tablet PO (20:54)
[2019-11-25] MEDS: Mirtazapine 30 MG Tablet PO (20:56)
[2019-11-25 21:04] VITALS: PULSE 74; RESP 18; O2SAT 94
[2019-11-26 05:00] VITALS: BP 151/66; PULSE 78; RESP 18; TEMP 36.9; O2SAT 92
[2019-11-26] MEDS: Pantoprazole Sodium 40 MG Tablet PO (06:18)
[2019-11-26] MEDS: levETIRAcetam 500 MG Tablet PO (06:18)
[2019-11-26] MEDS: Senna/Docusate Sodium 1 Tablet PO ×2 (06:18→17:57)
[2019-11-26] MEDS: Acetaminophen 500 MG Tablet 1000 MG PO ×3 (06:18→22:02)
[2019-11-26] MEDS: amLODIPine 10 MG Tablet PO (06:18)
[2019-11-26] MEDS: lamoTRIgine 100 MG Tablet 200 MG PO ×2 (06:18→17:57)
[2019-11-26] MEDS: Enoxaparin 40 MG/0.4 ML Syringe SC (06:19)
[2019-11-26] MEDS: DULoxetine Hcl 30 MG Capsule PO (06:20)
[2019-11-26] MEDS: Menthol/Lanolin/Calamine/Znox 113 GM Tube 1 APPLIC TOPICAL ×2 (06:23→17:56)
[2019-11-26 06:54] VITALS: O2SAT 96
[2019-11-26] MEDS: Iron Polysaccharide Complex 150 MG CAPSULE PO (07:56)
[2019-11-26 08:00] VITALS: PULSE 84; RESP 18; O2SAT 93
--- NOTE | 2019-11-26 13:40 | NURSING ---
pt returned from Dr Olson appt w/PWB 80% RLE, ambulation w/therapy
[2019-11-26 13:44] VITALS: BP 116/64; PULSE 92; RESP 17; TEMP 36.8; O2SAT 94
--- NOTE | 2019-11-26 16:37 | NURSING ---
pt family was updated on pt at appointment today.
--- NOTE | 2019-11-26 20:12 | PCA ---
Patient is a scheduled shower in the morning and will wait until then to get washed up.
[2019-11-26] MEDS: levETIRAcetam 750 MG Tablet PO (22:03)
[2019-11-26] MEDS: Mirtazapine 30 MG Tablet PO (22:03)
[2019-11-27 05:00] VITALS: BP 158/62; PULSE 88; RESP 16; TEMP 36.9; O2SAT 95
[2019-11-27] MEDS: Acetaminophen 500 MG Tablet 1000 MG PO ×3 (05:07→22:36)
[2019-11-27] MEDS: Pantoprazole Sodium 40 MG Tablet PO (05:08)
[2019-11-27] MEDS: DULoxetine Hcl 30 MG Capsule PO (05:08)
[2019-11-27] MEDS: Senna/Docusate Sodium 1 Tablet PO (05:08)
[2019-11-27] MEDS: levETIRAcetam 500 MG Tablet PO (05:08)
[2019-11-27] MEDS: amLODIPine 10 MG Tablet PO (05:08)
[2019-11-27] MEDS: lamoTRIgine 100 MG Tablet 200 MG PO ×2 (05:08→17:57)
[2019-11-27] MEDS: Enoxaparin 40 MG/0.4 ML Syringe SC (05:09)
[2019-11-27] MEDS: Menthol/Lanolin/Calamine/Znox 113 GM Tube 1 APPLIC TOPICAL ×2 (05:13→17:59)
[2019-11-27 06:38] VITALS: O2SAT 97
[2019-11-27] MEDS: Iron Polysaccharide Complex 150 MG CAPSULE PO (07:41)
--- NOTE | 2019-11-27 08:53 | MDS.RN ---
Information for the mds was obtained from review of the clinical record, interview of resident, staff, and direct observation of resident's care. unable to completed 5 day PPS due to Section [facility] does not allow to complete section, [facility] Information systems notified of error.
--- NOTE | 2019-11-27 12:43 | MDS.RN ---
able to now complete MDS assessment.
--- NOTE | 2019-11-27 14:25 | CASEMGMT ---
Social Work Last Covered Day issued by insurance for 12/01 with discharge on 12/02. SW met with pt and explained. Pt stating she would like to return home sooner but it is up to pt dgt and requested SW phone dgt. Phone call to dgt Emilie and updated her on insurance. Emilie would prefer if pt stays for entire insurance covered days as pt would benefit from continued therapy. SW informed pt of dgt wishes and pt agreeable to stay with d/c of 12/02. [facility] signed and faxed to insurance. Pt and dgt are agreeable to recommendations for home health PT/OT/ST/SN/ALDANA and have no preference on company used. SW will follow up to assist with d/c planning. Plan: D/C 12/02 home with dgt and home health PT/OT/ST/SN/RN MATERNITY KAROL Friedman
--- NOTE | 2019-11-27 14:47 | DCINST_ITS ---
- Discharge Diagnoses Current Active Problems: Current Active and Chronic Problems Debility (Acute) Postoperative anemia (Acute) Hypertension (Chronic) Epilepsy (Chronic) Depression (Chronic) GERD (gastroesophageal reflux disease) (Chronic) COPD (chronic obstructive pulmonary disease) (Chronic) Tobacco abuse (Chronic) Tardive dyskinesia (Chronic) You will use the following diet at home:: No restrictions, Regular Your food should be the consistency of: Mechanical soft (ground) - Minced/moist. Your liquids should be the consistency of: Honey Thick - Moderately thick. Discharge Activity: Return to Normal Activity, May Shower, Use Walker Weight Bearing Status: Partial weight bearing Keep extremity elevated above heart level: Right Leg Call your doctor if you observe: Fever of 101 or Higher, Inability to urinate, Inability to have a bowel movement, Shortness of breath, Chest pain, Uncontrolled pain Allergies/Adverse Reactions: Allergies diltiazem Allergy (Verified 11/12/19 06:37) Unknown gabapentin Allergy (Verified 11/12/19 06:37) SEVERE LEG SWELLING hydrochlorothiazide [From Dyazide] Allergy (Verified 11/12/19 06:37) Unknown metoprolol Allergy (Verified 11/12/19 06:37) Unknown phenytoin [From Dilantin] Allergy (Verified 11/12/19 06:37) TREMORS/TWITCHING triamterene Allergy (Verified 11/12/19 06:37) Unknown ciprofloxacin [From Cipro] Adverse Reaction (Verified 11/12/19 06:37) Other Medications to take at Discharge Amlodipine [Norvasc] 10 mg PO DAILY 11/09/15 Albuterol Inhaler [Ventolin Hfa] 2 puff INHALATION Q4H PRN PRN #1 inhaler 03/24/16 Cholecalciferol (Vitamin D3) [Vitamin D3] 2,000 unit PO BID 02/19/17 Lamotrigine [Lamictal] 200 mg PO BID 02/19/17 Pantoprazole Sodium 40 mg PO DAILY 02/19/17 Levetiracetam [Keppra] 750 mg PO QHS 11/06/17 levETIRAcetam tablet [Keppra tablet] 500 mg PO DAILY 11/06/17 Duloxetine Hcl [Cymbalta] 30 mg PO DAILY 09/27/18 Mirtazapine [Remeron] 30 mg PO QHS 11/12/19 Acetaminophen [Tylenol] 1,000 mg PO Q8 tablet 11/27/19 Iron Polysaccharide Complex [Ferrex 150] 150 mg PO DAILYCM #30 cap 11/27/19 Menthol/Lanolin/Calamine/Znox [Calmoseptine Ointment] 1 applic TOPICAL BID tube 11/27/19 Potassium Chloride [K-Dur] 10 meq PO DAILYCM #30 tab 11/27/19 The following prescriptions were given: Iron Polysaccharide Complex [Ferrex 150] 150 mg PO DAILYCM #30 cap Transmission Status: Pending to [id number] Potassium Chloride [K-Dur] 10 meq PO DAILYCM #30 tab Transmission Status: Pending to [id number] Primary Care Physician: Navjot Muñoz, PA [Primary Care Provider] - Please follow up with your Primary Care Physician in: 1 week. Test Results: Test results from this visit will be discussed in further detail at your follow- up appointment, if applicable. Please Follow Up With: Dr Fox Olson When: in 2 weeks Proposed Discharge Date: 12/03/19
--- NOTE | 2019-11-27 14:50 | DS.PCM_ITS ---
Discharge Date and Diagnosis - Problem List Patient Problems: Active and Suspected Problems Debility (Acute) Postoperative anemia (Acute) Date of Admission: 11/16/19 Date of Discharge: 12/03/19 - Primary Discharge Diagnosis Acute Problems: Active Problems Debility (Acute) Postoperative anemia (Acute) - Secondary Discharge Diagnosis Chronic Problems: Chronic Problems Dysphagia (Chronic) Hypertension (Chronic) Epilepsy (Chronic) Depression (Chronic) GERD (gastroesophageal reflux disease) (Chronic) COPD (chronic obstructive pulmonary disease) (Chronic) Tobacco abuse (Chronic) Tardive dyskinesia (Chronic) Seizure (Chronic) History of seizures (Chronic) History of hypertension (Chronic) Hospital Course and Treatment Imaging Results: 11/16/19 16:49 Diet: Regular - General Food consistency:: Mechanical (Minced/Moist) Liquid Consistency:: Honey/Moderately Thick Dietary Modifications:: Lactose Controlled Diet Comments: Direct supervision during meals Operations: None, - - 11/11 right hip repair Procedures: None Summary of Care Provided: The patient is a 74 year old Female with below past medical history hospitalized for right hip fracture, underwent right hip cephalo-medullary nail 11/12/[address] Olson, complicated by postoperative anemia, severe dysphagia, admitted to TCU with debility, here for rehabilitation, strengthening, prior to discharge home alone. 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 Patient Problems: Active and Suspected Problems Debility (Acute) Postoperative anemia (Acute) - Physical Exam Vitals/I&O's: Vital Signs Temp Pulse Resp BP Pulse Ox 98.4 F 88 16 158/62 H 97 11/27/19 05:00 11/27/19 05:00 11/27/19 05:00 11/27/19 05:00 11/27/19 06:38 Oxygen Flow Rate (L/min) 1 Oxygen Delivery Method Room Air Weight: 44.86 kg Body Mass Index (BMI) 17.8 Intake and Output for Last 24 Hours 11/25/19 11/26/19 11/27/19 23:59 23:59 23:59 Intake Total 720 / 720 600 / 600 480 / 480 Balance 720 / 720 600 / 600 480 / 480 Current Medications Acetaminophen (Tylenol) 1,000 mg PO Q8 JEAN CARLOS Last Admin: 11/27/19 13:13 Dose: 1,000 mg Documented by: Albuterol Sulfate (Ventolin Aerosols) 2.5 mg INHALATION Q2H PRN PRN PRN Reason: SOB/WHEEZING Amlodipine Besylate (Norvasc) 10 mg PO DAILY [facility] Last Admin: 11/27/19 05:08 Dose: 10 mg Documented by: Bisacodyl (Dulcolax) 10 mg RECTAL DAILY PRN PRN Reason: Constipation Calamine/Phenol (Calmoseptine Ointment) 1 applic TOPICAL BID [facility]; Protocol Last Admin: 11/27/19 05:13 Dose: 1 applicatio Documented by: Cholecalciferol (Vitamin D (25mcg)) 2,000 unit PO BID [facility] Last Admin: 11/27/19 05:07 Dose: 2,000 unit Documented by: Duloxetine HCl (Cymbalta) 30 mg PO DAILY [facility] Last Admin: 11/27/19 05:08 Dose: 30 mg Documented by: Enoxaparin Sodium (Lovenox) 40 mg SC DAILY@0600 [facility] Last Admin: 11/27/19 05:09 Dose: 40 mg Documented by: Lamotrigine (Lamictal) 200 mg PO BID [facility] Last Admin: 11/27/19 05:08 Dose: 200 mg Documented by: Levetiracetam (Keppra Tablet) 750 mg PO QHS [facility] Last Admin: 11/26/19 22:03 Dose: 750 mg Documented by: Levetiracetam (Keppra Tablet) 500 mg PO DAILY [facility] Last Admin: 11/27/19 05:08 Dose: 500 mg Documented by: Mirtazapine (Remeron) 30 mg PO QHS [facility] Last Admin: 11/26/19 22:03 Dose: 30 mg Documented by: Oxycodone HCl (Oxyir) 5 mg PO Q4H PRN PRN PRN Reason: Pain Score 6-10/10 Last Admin: 11/18/19 12:32 Dose: 5 mg Documented by: Pantoprazole Sodium (Protonix) 40 mg PO DAILY [facility] Last Admin: 11/27/19 05:08 Dose: 40 mg Documented by: Polyethylene Glycol (Miralax) 17 gm PO DAILY [facility] Last Admin: 11/27/19 05:08 Dose: Not Given Documented by: Polysaccharide Iron [facility] ([facility]rex 150) [facility] Last Admin: 11/27/19 07:41 Dose: 150 mg Documented by: Potassium Chloride (K-Dur) [facility]q [facility] Last Admin: 11/27/19 07:41 Dose: 10 meq Documented by: Senna/Docusate Sodium (Senokot-S, Payton-Colace) 1 tablet PO BID [facility] Last Admin: 11/27/19 05:08 Dose: 1 tablet Documented by: Discharge Diet: No Restrictions Discharge Activity: Return to Normal Activity, May Shower, Use Walker Weight Bearing Status: Partial weight bearing Keep extremity elevated above heart level: Right Leg Call your doctor if you observe: Fever of 101 or Higher, Inability to urinate, Inability to have a bowel movement, Shortness of breath, Chest pain, Uncontroll ed pain Home Medications: Medications to take at Discharge Amlodipine [Norvasc] 10 mg PO DAILY 11/09/15 Albuterol Inhaler [Ventolin Hfa] 2 puff INHALATION Q4H PRN PRN #1 inhaler 03/24/16 Cholecalciferol (Vitamin D3) [Vitamin D3] 2,000 unit PO BID 02/19/17 Lamotrigine [Lamictal] 200 mg PO BID 02/19/17 Pantoprazole Sodium 40 mg PO DAILY 02/19/17 Levetiracetam [Keppra] 750 mg PO QHS 11/06/17 levETIRAcetam tablet [Keppra tablet] 500 mg PO DAILY 11/06/17 Duloxetine Hcl [Cymbalta] 30 mg PO DAILY 09/27/18 Mirtazapine [Remeron] 30 mg PO QHS 11/12/19 Acetaminophen [Tylenol] 1,000 mg PO Q8 tablet 11/27/19 Iron Polysaccharide Complex [Ferrex 150] 150 mg PO DAILYCM #30 cap 11/27/19 Menthol/Lanolin/Calamine/Znox [Calmoseptine Ointment] 1 applic TOPICAL BID tube 11/27/19 Potassium Chloride [K-Dur] 10 meq PO DAILYCM #30 tab 11/27/19 Following Prescriptions Were Given to Patient: Iron Polysaccharide Complex [Ferrex 150] 150 mg PO DAILYCM #30 cap Transmission Status: Pending to [id number] Potassium Chloride [K-Dur] 10 meq PO DAILYCM #30 tab Transmission Status: Pending to [id number] Primary Care Physician: Navjot Muñoz PA [Primary Care Provider] - Please follow up with your Primary Care Physician in: 1 week. Please Follow Up With: Dr Fox Olson When: in 2 weeks Disposition: Home with Home Health Minutes spent on discharge:: 35 Patient Condition:: Stable Medical Necessity - Tobacco Use Smoking Status: Heavy Smoker (>10/day) Tobacco Use: Cigarettes Meaningful Use Info Meaningful Use Diagnoses (Choose all that apply): None applicable
[2019-11-27 15:53] VITALS: BP 144/73; PULSE 79; RESP 18; TEMP 37.2; O2SAT 95
[2019-11-27] MEDS: levETIRAcetam 750 MG Tablet PO (22:36)
[2019-11-27] MEDS: Mirtazapine 30 MG Tablet PO (22:37)
[2019-11-28 04:23] VITALS: BP 146/71; PULSE 79; RESP 18; TEMP 36.5; O2SAT 94
[2019-11-28] MEDS: Acetaminophen 500 MG Tablet 1000 MG PO ×3 (04:25→20:45)
[2019-11-28] MEDS: DULoxetine Hcl 30 MG Capsule PO (04:25)
[2019-11-28] MEDS: levETIRAcetam 500 MG Tablet PO (04:25)
[2019-11-28] MEDS: Pantoprazole Sodium 40 MG Tablet PO (04:25)
[2019-11-28] MEDS: Menthol/Lanolin/Calamine/Znox 113 GM Tube 1 APPLIC TOPICAL ×2 (04:25→17:41)
[2019-11-28] MEDS: lamoTRIgine 100 MG Tablet 200 MG PO ×2 (04:25→17:38)
[2019-11-28] MEDS: amLODIPine 10 MG Tablet PO (04:27)
[2019-11-28] MEDS: Iron Polysaccharide Complex 150 MG CAPSULE PO (09:00)
[2019-11-28 10:00] VITALS: PULSE 82; RESP 18; O2SAT 93
[2019-11-28 14:01] VITALS: BP 136/60; PULSE 79; RESP 16; TEMP 36.6; O2SAT 92
--- NOTE | 2019-11-28 14:59 | NURSING ---
Pt on the phone with family at this time, did not want me to call and give up date.
[2019-11-28] MEDS: Senna/Docusate Sodium 1 Tablet PO (17:39)
[2019-11-28] MEDS: Mirtazapine 30 MG Tablet PO (20:45)
[2019-11-28] MEDS: levETIRAcetam 750 MG Tablet PO (20:45)
[2019-11-29 05:26] VITALS: BP 146/72; PULSE 79; RESP 16; TEMP 36.6; O2SAT 94
[2019-11-29] MEDS: Enoxaparin 40 MG/0.4 ML Syringe SC (05:28)
[2019-11-29] MEDS: Menthol/Lanolin/Calamine/Znox 113 GM Tube 1 APPLIC TOPICAL ×2 (05:29→17:39)
[2019-11-29] MEDS: amLODIPine 10 MG Tablet PO (05:29)
[2019-11-29] MEDS: DULoxetine Hcl 30 MG Capsule PO (05:29)
[2019-11-29] MEDS: lamoTRIgine 100 MG Tablet 200 MG PO ×2 (05:29→17:39)
[2019-11-29] MEDS: Senna/Docusate Sodium 1 Tablet PO ×2 (05:29→17:40)
[2019-11-29] MEDS: Acetaminophen 500 MG Tablet 1000 MG PO ×3 (05:29→20:44)
[2019-11-29] MEDS: Pantoprazole Sodium 40 MG Tablet PO (05:29)
[2019-11-29] MEDS: levETIRAcetam 500 MG Tablet PO (05:29)
[2019-11-29] MEDS: Iron Polysaccharide Complex 150 MG CAPSULE PO (07:49)
[2019-11-29 13:55] VITALS: BP 130/69; PULSE 87; RESP 17; TEMP 36.6; O2SAT 96
[2019-11-29] MEDS: Mirtazapine 30 MG Tablet PO (20:43)
[2019-11-29] MEDS: levETIRAcetam 750 MG Tablet PO (20:43)
[2019-11-30 05:00] VITALS: BP 155/62; PULSE 77; RESP 18; TEMP 36.6; O2SAT 95
[2019-11-30] MEDS: Pantoprazole Sodium 40 MG Tablet PO (05:32)
[2019-11-30] MEDS: Menthol/Lanolin/Calamine/Znox 113 GM Tube 1 APPLIC TOPICAL ×2 (05:32→17:37)
[2019-11-30] MEDS: DULoxetine Hcl 30 MG Capsule PO (05:33)
[2019-11-30] MEDS: Enoxaparin 40 MG/0.4 ML Syringe SC (05:33)
[2019-11-30] MEDS: Senna/Docusate Sodium 1 Tablet PO ×2 (05:33→17:39)
[2019-11-30] MEDS: amLODIPine 10 MG Tablet PO (05:33)
[2019-11-30] MEDS: lamoTRIgine 100 MG Tablet 200 MG PO ×2 (05:33→17:39)
[2019-11-30] MEDS: levETIRAcetam 500 MG Tablet PO (05:33)
[2019-11-30] MEDS: Acetaminophen 500 MG Tablet 1000 MG PO ×3 (05:33→20:31)
[2019-11-30] MEDS: Iron Polysaccharide Complex 150 MG CAPSULE PO (07:44)
[2019-11-30 13:00] VITALS: PULSE 84; RESP 18; O2SAT 95
[2019-11-30 13:31] VITALS: BP 125/54; PULSE 65; RESP 16; TEMP 36.8; O2SAT 97
--- NOTE | 2019-11-30 14:14 | CASEMGMT ---
Social Work Followed up with patient on DC plans. Pt agreeable to [facility]. Referral made for PT/OT/ST/SN/ALDANA. No DME needs. Sister to transport. Mona Smith, BRIDGE INSPECTOR COMPENSATION INTERN
[2019-11-30] MEDS: Mirtazapine 30 MG Tablet PO (20:31)
[2019-11-30] MEDS: levETIRAcetam 750 MG Tablet PO (20:31)
[2019-12-01 05:00] VITALS: BP 156/75; PULSE 78; RESP 16; TEMP 37.1; O2SAT 96
[2019-12-01] MEDS: levETIRAcetam 500 MG Tablet PO (05:53)
[2019-12-01] MEDS: Enoxaparin 40 MG/0.4 ML Syringe SC (05:53)
[2019-12-01] MEDS: Pantoprazole Sodium 40 MG Tablet PO (05:53)
[2019-12-01] MEDS: Acetaminophen 500 MG Tablet 1000 MG PO ×3 (05:53→20:36)
[2019-12-01] MEDS: Senna/Docusate Sodium 1 Tablet PO ×2 (05:53→17:37)
[2019-12-01] MEDS: amLODIPine 10 MG Tablet PO (05:53)
[2019-12-01] MEDS: lamoTRIgine 100 MG Tablet 200 MG PO ×2 (05:53→17:37)
[2019-12-01] MEDS: DULoxetine Hcl 30 MG Capsule PO (05:53)
[2019-12-01] MEDS: Menthol/Lanolin/Calamine/Znox 113 GM Tube 1 APPLIC TOPICAL ×2 (05:57→17:40)
[2019-12-01] MEDS: Iron Polysaccharide Complex 150 MG CAPSULE PO (08:05)
[2019-12-01 14:34] VITALS: BP 126/55; PULSE 74; RESP 18; TEMP 37.1; O2SAT 91
[2019-12-01] MEDS: Mirtazapine 30 MG Tablet PO (20:36)
[2019-12-01] MEDS: levETIRAcetam 750 MG Tablet PO (20:36)
[2019-12-01 20:43] VITALS: PULSE 81; RESP 16; O2SAT 94
[2019-12-02 05:34] VITALS: BP 166/69; PULSE 82; RESP 16; TEMP 36.7; O2SAT 93
[2019-12-02] MEDS: lamoTRIgine 100 MG Tablet 200 MG PO ×2 (05:35→17:20)
[2019-12-02] MEDS: Pantoprazole Sodium 40 MG Tablet PO (05:35)
[2019-12-02] MEDS: amLODIPine 10 MG Tablet PO (05:35)
[2019-12-02] MEDS: Senna/Docusate Sodium 1 Tablet PO (05:35)
[2019-12-02] MEDS: Polyethylene Glycol 3350 17 GM PACKET PO (05:35)
[2019-12-02] MEDS: Enoxaparin 40 MG/0.4 ML Syringe SC (05:36)
[2019-12-02] MEDS: DULoxetine Hcl 30 MG Capsule PO (05:36)
[2019-12-02] MEDS: levETIRAcetam 500 MG Tablet PO (05:36)
[2019-12-02] MEDS: Acetaminophen 500 MG Tablet 1000 MG PO ×3 (05:39→21:26)
[2019-12-02] MEDS: Menthol/Lanolin/Calamine/Znox 113 GM Tube 1 APPLIC TOPICAL ×2 (05:39→17:23)
[2019-12-02] MEDS: Iron Polysaccharide Complex 150 MG CAPSULE PO (07:57)
[2019-12-02 08:41] VITALS: PULSE 89; RESP 18; O2SAT 93
[2019-12-02 13:45] VITALS: BP 134/57; PULSE 78; RESP 16; TEMP 36.9; O2SAT 93
--- NOTE | 2019-12-02 14:00 | PHA.DC.MC ---
Pharmacy Service has performed discharge medication reconciliation and counseling for this patient. 1. ACETAMINOPHEN 1000MG PO Q8H 2. FERREX 150MG PO DAILYCM 3. POTASSIUM CHLORIDE 10MEQ PO DAILY The patient's discharge medication list was reviewed for discrepancies and discrepancies were resolved. Home Medications Amlodipine [Norvasc] 10 mg PO DAILY 11/09/15 Albuterol Inhaler [Ventolin Hfa] 2 puff INHALATION Q4H PRN PRN #1 inhaler 03/24/16 Cholecalciferol (Vitamin D3) [Vitamin D3] 2,000 unit PO BID 02/19/17 Lamotrigine [Lamictal] 200 mg PO BID 02/19/17 Pantoprazole Sodium 40 mg PO DAILY 02/19/17 Levetiracetam [Keppra] 750 mg PO QHS 11/06/17 levETIRAcetam tablet [Keppra tablet] 500 mg PO DAILY 11/06/17 Duloxetine Hcl [Cymbalta] 30 mg PO DAILY 09/27/18 Mirtazapine [Remeron] 30 mg PO QHS 11/12/19 Acetaminophen [Tylenol] 1,000 mg PO Q8 tab 11/27/19 Iron Polysaccharide Complex [Ferrex 150] 150 mg PO DAILYCM #30 cap 11/27/19 Menthol/Lanolin/Calamine/Znox [Calmoseptine Ointment] 1 applic TOPICAL BID tube 11/27/19 Potassium Chloride [K-Dur] 10 meq PO DAILYCM #30 tab 11/27/19 The patient was counseled on the following discharge medications and changes in medications for homegoing were reviewed. The Reason for Use, instructions for use, and potential side effects were reviewed for all new medications. The patient's questions regarding all of their medications were answered. The patient was able to verbally demonstrate an understanding of their discharge medications. Patient was counseled by income auditor, [employer].
[2019-12-02] MEDS: levETIRAcetam 750 MG Tablet PO (21:26)
[2019-12-02] MEDS: Mirtazapine 30 MG Tablet PO (21:26)
[2019-12-03 02:14] VITALS: BP 166/74; PULSE 81; RESP 18; TEMP 36.4; O2SAT 94
[2019-12-03] MEDS: Senna/Docusate Sodium 1 Tablet PO (05:16)
[2019-12-03] MEDS: Pantoprazole Sodium 40 MG Tablet PO (05:16)
[2019-12-03] MEDS: levETIRAcetam 500 MG Tablet PO (05:16)
[2019-12-03] MEDS: amLODIPine 10 MG Tablet PO (05:16)
[2019-12-03] MEDS: Acetaminophen 500 MG Tablet 1000 MG PO (05:16)
[2019-12-03] MEDS: lamoTRIgine 100 MG Tablet 200 MG PO (05:17)
[2019-12-03] MEDS: DULoxetine Hcl 30 MG Capsule PO (05:18)
[2019-12-03] MEDS: Enoxaparin 40 MG/0.4 ML Syringe SC (05:19)
[2019-12-03] MEDS: Menthol/Lanolin/Calamine/Znox 113 GM Tube 1 APPLIC TOPICAL (05:21)
[2019-12-03] MEDS: Iron Polysaccharide Complex 150 MG CAPSULE PO (07:31)
[2019-12-03 09:34] VITALS: PULSE 89; RESP 18; O2SAT 95
[2019-12-03 10:38] VITALS: BP 125/58; PULSE 89; RESP 18; TEMP 36.7; O2SAT 95
== END 2019-12-03 11:00 | disposition home health service (06) | DRG 561 ==
PROVIDERS: Admitting Provider Family Medicine Geriatric Medicine; PCP Physician Assistant; Referring Provider Family Medicine Geriatric Medicine; Visit Provider Family Medicine Geriatric Medicine
DX: S72.001D Fracture of unspecified part of neck of right femur, subsequent encounter for closed fracture with routine healing (principal); W19.XXXD Unspecified fall, subsequent encounter; I10 Essential (primary) hypertension; F17.210 Nicotine dependence, cigarettes, uncomplicated; J44.9 Chronic obstructive pulmonary disease, unspecified; G40.909 Epilepsy, unspecified, not intractable, without status epilepticus; F32.9 Major depressive disorder, single episode, unspecified; K21.9 Gastro-esophageal reflux disease without esophagitis; G24.01 Drug induced subacute dyskinesia; D50.9 Iron deficiency anemia, unspecified; E55.9 Vitamin D deficiency, unspecified; Z23 Encounter for immunization
CPT/HCPCS: 36415; 80048; 82962; 85025; 87635; 92507; 92523; 92526; 92610; 97110; 97116; 97162; 97166; 97530; 97535; 97802; 99406; C9803; G0008; 90686; U0003

== ENCOUNTER 2019-12-04 15:48 | Emergency (ER) | payer MEDICARE, MEDICAID, SELFPAY ==
[2019-11-16 16:18] VITALS: BMI 17.8
[2019-12-04 15:49] VITALS: BP 133/61; PULSE 86; RESP 16; TEMP 36.7; BMI 18.1
[2019-12-04 15:52] VITALS: O2SAT 98
[2019-12-04 16:23] LABS: Absolute Lymphocyte Count 1.67 X10^3/uL (0.83-4.51); Absolute Neutrophil Count 5.4 X10^3/uL (2.0-7.7); Basophil# 0.08 X10^3/uL; Eosinophil# 0.14 X10^3/uL; Eosinophils% 1.8 % (0-5); Hematocrit 36.2 % (37-47); Hemoglobin 10.8 g/dL (12.0-15.0); Lymphocyte # 1.67 X10^3/ul (4.0); Lymphocyte % 20.9 % (19-41); Mean Corp Hgb Conc 29.8 g/dL (32-36); Mean Corpuscular Hgb 28.5 pg (27.0-32.0); Mean Corpuscular Volume 95.5 fL (81-99); Mean Platelet Vol. 8.6 fl (6.2-12.0); Monocyte# 0.72 X10^3/uL; NRBC Flagged by Analyzer 0 % (0-5); Neutrophil # 5.35 X10^3/uL (2.7-7.7); Neutrophil % 66.9 % (47-70); POSITIVE MORPHOLOGY YES; Platelet Count 544 K/mm3 (150-450); RBC Distribution Width CV 17.9 % (11.6-14.6); RBC Distribution Width SD 62.6 fl (35.1-43.9); Red Blood Count 3.79 M/mm3 (4.2-5.4)
[2019-12-04 16:25] LABS: Differential Indicated SCAN CRITERIA MET
[2019-12-04 16:32] LABS: Anion Gap 7 (5-15); BUN 18 mg/dL (7-18); BUN/Creat Ratio 21.5 RATIO (10-20); Calcium,Total 8.7 mg/dL (8.5-10.1); Chloride 102 mmol/L (98-107); Creatinine, Serum 0.84 mg/dL (0.55-1.02); EST Glomerular Filtration Rate 71 mL/min (>60); Est Glom Filt Rate - Afr Amer 86 mL/min (>60); Estimated Creatinine Clearance 43.69 ml/min; Glucose 97 mg/dL (74-106); Potassium 4.1 mmol/L (3.5-5.1); Sodium Level 136 mmol/L (136-145)
[2019-12-04 16:40] VITALS: BP 117/83; PULSE 136; RESP 12; O2SAT 100; O2SAT 73
--- NOTE | 2019-12-04 16:42 | ED.RN ---
Walked in to room and found patient sitting in bed with eyes open and staring. Unresponsive to verbal or painful stimuli. Pt began making gasping/gagging noise and spo2 began to decrease from mid 90's to high to mid 70's. Upon coughing and application of 100% NRB, no suctioning was needed and SP02 increased to 100%.
--- NOTE | 2019-12-04 16:42 | ED.VISSUMM ---
- ER Visit Summary Date of Service: 12/04/19 Chief Complaint: Seizure History of Present Illness: The patient is a 74 F who presents with a seizure that occurred today. Patient does not know what happened. Patient states she was told she had a seizure. Patient states she has a history of seizure disorder. Patient takes Lamictal and Keppra for her seizures. Patient denies any incontinence of urine or stool. Patient denies biting her tongue. Patient admits to a headache. Patient denies any fevers or chills. Patient denies any chest pain or shortness of breath. Physical Examination: Vital signs are stable. Patient is afebrile. Patient is in no acute distress. Oral mucosa is pink and moist. There are no mucosal lacerations or tongue lacerations noted. Oropharynx is clear. Neck is supple. Trachea is midline. There is no JVD. Heart was regular rate and rhythm. Lungs are clear and equal bilaterally. Abdomen is soft. Bowel sounds are normal. There is no tenderness. Extremities are intact. There is no calf tenderness or edema. Cranial nerves II through XII are intact. There are no focal motor or sensory deficits noted. Test Results: CBC shows a mild anemia with hemoglobin of 10.8 hematocrit 36.2. Basic metabolic profile was normal. Urinalysis does not show any evidence of urinary tract infection. Portable chest x-ray was obtained. There is no acute cardiopulmonary process. There are chronic changes. This was interpreted by the radiologist and reviewed by myself. Emergency Department Course and Treatment: Patient did have a seizure here in the emergency department. Patient was noted to be staring off and not responding. Nurse reported the patient's oxygen saturation dropped. Patient was having tardive dyskinesia movements around her mouth. These were occurring prior to and after the seizure as well. Patient was given a dose of Ativan here. Patient seizure activity stopped and she slowly returned to baseline. Patient was feeling better on reevaluation. Patient was instructed to follow-up with her primary care physician in 3 to 5 days for further evaluation. Patient was instructed return if worse in any way. Patient understood and was agreeable with the plan. All questions were answered. Disposition: Discharge home Impression: Seizure disorder This note was generated with [employer] dictation software. It may contain incorrect words, spelling, and punctuation that were not noted in review of the chart prior to signing ED Disposition - Plan for ED Patient: Disposition: Home or Assisted Living Diagnosis: Seizure disorder Instructions: ED Seizure Recurrent Adult Referrals: Navjot Muñoz PA [Primary Care Provider] - 3-5 Days
[2019-12-04] MEDS: LORazepam 2 MG/ML Syringe 0.5 MG IV (16:45)
--- NOTE | 2019-12-04 16:55 | NURSING ---
Pt appears to be in a postictal state at this time. Maintaining airway and breathing, remains unresponsive to voice.
--- NOTE | 2019-12-04 17:00 | NURSING ---
Pt pulling at wires and NRB mask. NRB removed and placed on 2lNC. Continues to maintain airway and breathing.
[2019-12-04 17:01] LABS: Bacteria 0 SEEN /hpf (None Seen); Mucous, Urine 0 SEEN /hpf (<or=2+); Red Blood Cells-Urine 0 SEEN /hpf (0-5); Squamous Epithelial Cells - UA 0 SEEN /hpf (5-10); White Blood Cells 0 SEEN /hpf (0-5)
--- NOTE | 2019-12-04 17:09 | RAD_ITS ---
STUDY: X-RAY CHEST REASON FOR EXAM: Female, 74 years old. SEIZURES. HX OF EPILEPSY. TECHNIQUE: 1 view COMPARISON: Prior chest radiograph of 11/12/2019 FINDINGS: Reduced inspiration without new consolidation, other infiltrates or pleural effusion. Calcified granuloma at the right lung base. Normal size heart. Normal mediastinum and galilea. Normal visualized pulmonary arteries. There is atherosclerotic calcification of the aortic arch with tortuosity. There is demineralization of the osseous structures. Normal visualized ribs, clavicles, and shoulders. There is no demonstrated abnormality of the visualized soft tissue structures of the upper abdomen. RAD/Chest 1 View (Portable) IMPRESSION: Reduced inspiration without other acute cardiopulmonary findings. Negative for new consolidation, focal atelectasis, cardiomegaly or pleural effusion. Electronically Signed: Yuli Sanderson MD at 17:23 EDT , Service support ,
--- NOTE | 2019-12-04 17:09 | ED.RN ---
Pt resting with eyes closed. Awakes to verbal stimuli and responds appropriately at this time.
[2019-12-04 17:10] VITALS: BP 130/64; PULSE 83; RESP 16; O2SAT 97
[2019-12-04 17:16] LABS: Color, Urine Yellow (Yellow); Glucose, Dipstick Normal (Normal); Ketone-Dipstick Negative (Negative); Leukocyte Esterase-Dipstick Negative /ul (Negative); Nitrite-Dipstick Negative (Negative); Occult Blood-Urine Negative /ul (Negative); Protein-Dipstick 30 mg/dl (Negative); Urine Bilirubin Dipstick Negative (Negative); Urine Clarity Clear (Clear); Urine Urobilinogen Normal (Normal); Urine pH 6.5 (5.0 - 8.0)
[2019-12-04 17:20] LABS: Platelet Estimate SLT INC (ADEQ); Red Cell Morphology NORM C+C NORMAL (NORM C&C)
[2019-12-04 18:05] VITALS: BP 126/77; PULSE 80; RESP 16; O2SAT 96
[2019-12-04 20:10] VITALS: BP 120/76; PULSE 94; RESP 16; O2SAT 98
== END 2019-12-04 20:10 | disposition home or self-care (01) ==
PROVIDERS: Emergency Provider Emergency Medicine; PCP Physician Assistant
DX: G40.909 Epilepsy, unspecified, not intractable, without status epilepticus (principal); Z79.899 Other long term (current) drug therapy; F17.200 Nicotine dependence, unspecified, uncomplicated
CPT/HCPCS: 36415; 71045; 80048; 81001; 85025; 96374; 99285; C9803; A4216

== ENCOUNTER 2019-12-18 11:28 | Outpatient (RCR) | payer MEDICARE, MEDICAID, SELFPAY ==
[2019-12-16 16:29] LABS: ALB/GLOB Ratio 1.1 RATIO (0.9-2.4); AST(SGOT) 18 U/L (15-37); Alanine Aminotransfer ALT/SGPT 18 U/L (13-56); Alkaline Phosphatase 131 U/L (45-117); Anion Gap 6 (5-15); BUN 14 mg/dL (7-18); BUN/Creat Ratio 19.4 RATIO (10-20); Calcium,Total 9.1 mg/dL (8.5-10.1); Chloride 101 mmol/L (98-107); Creatinine, Serum 0.72 mg/dL (0.55-1.02); EST Glomerular Filtration Rate 84 mL/min (>60); Est Glom Filt Rate - Afr Amer 102 mL/min (>60); Ferritin 311 ng/mL (8-252); Globulin 3.5 g/dL (2.2-4.2); Glucose 92 mg/dL (74-106); Iron 75 ug/dL (50-170); Iron Binding Capacity,Total 244 ug/dL (250-450); Potassium 4.7 mmol/L (3.5-5.1); Protein, Total 7.5 g/dL (6.4-8.2); Sodium Level 135 mmol/L (136-145)
[2019-12-18 11:34] LABS: Absolute Lymphocyte Count 1.28 X10^3/uL (0.83-4.51); Basophil# 0.05 X10^3/uL; Basophil% 0.9 % (0-1); Eosinophil# 0.05 X10^3/uL; Eosinophils% 0.9 % (0-5); Hematocrit 38.6 % (37-47); Hemoglobin 11.9 g/dL (12.0-15.0); Lymphocyte # 1.28 X10^3/ul (4.0); Lymphocyte % 21.8 % (19-41); Mean Corp Hgb Conc 30.8 g/dL (32-36); Mean Corpuscular Hgb 29.8 pg (27.0-32.0); Mean Corpuscular Volume 96.5 fL (81-99); Mean Platelet Vol. 8.9 fl (6.2-12.0); Monocyte# 0.46 X10^3/uL; Monocyte% 7.8 % (0-10); NRBC Flagged by Analyzer 0 % (0-5); Neutrophil # 4.03 X10^3/uL (2.7-7.7); Neutrophil % 68.4 % (47-70); POSITIVE MORPHOLOGY YES; Platelet Count 368 K/mm3 (150-450); RBC Distribution Width CV 19.2 % (11.6-14.6); RBC Distribution Width SD 68.9 fl (35.1-43.9); White Blood Count 5.9 K/mm3 (4.4-11.0)
[2019-12-18 11:43] LABS: Differential Indicated SCAN CRITERIA MET
[2019-12-18 11:56] LABS: Differential Comment SCANNED
[2019-12-22 11:57] LABS: KEPPRA (LEVETIRACETAM) 37.6 ug/mL (10.0-40.0); Lamotrigine (Lamictal) Level 8.3 ug/mL (2.0-20.0)
== END 2019-12-18 18:00 | disposition home or self-care (01) ==
LOC: HHLAB 11:28
PROVIDERS: PCP Physician Assistant; Visit Provider Specialist
DX: I10 Essential (primary) hypertension (principal); D64.9 Anemia, unspecified; G40.909 Epilepsy, unspecified, not intractable, without status epilepticus
CPT/HCPCS: 80053; 80177; 82542; 82728; 83540; 83550; 85025

== ENCOUNTER → 2020-07-13 | Outpatient (CLI) | payer MEDICARE, MEDICAID, SELFPAY ==
[2020-07-13 12:31] LABS: Absolute Lymphocyte Count 1.23 X10^3/uL (0.83-4.51); Absolute Neutrophil Count 5.6 X10^3/uL (2.0-7.7); Basophil# 0.07 X10^3/uL; Basophil% 0.9 % (0-1); Eosinophil# 0.14 X10^3/uL; Eosinophils% 1.8 % (0-5); Hematocrit 39.3 % (37-47); Hemoglobin 12.6 g/dL (12.0-15.0); Lymphocyte # 1.23 X10^3/ul (0.83-4.51); Lymphocyte % 16.2 % (19-41); Mean Corp Hgb Conc 32.1 g/dL (32-36); Mean Corpuscular Hgb 30.9 pg (27.0-32.0); Mean Corpuscular Volume 96.3 fL (81-99); Mean Platelet Vol. 8.9 fl (6.2-12.0); Monocyte# 0.57 X10^3/uL; Monocyte% 7.5 % (0-10); NRBC Flagged by Analyzer 0 % (0-5); Neutrophil # 5.58 X10^3/uL (2.7-7.7); Neutrophil % 73.3 % (47-70); Platelet Count 431 K/mm3 (150-450); RBC Distribution Width CV 13.5 % (11.6-14.6); RBC Distribution Width SD 48.3 fl (35.1-43.9); Red Blood Count 4.08 M/mm3 (4.2-5.4); White Blood Count 7.6 K/mm3 (4.4-11.0)
[2020-07-13 12:56] LABS: Vitamin D,25 Hydroxy 79.4 ng/mL
[2020-07-13 13:28] LABS: AST(SGOT) 12 U/L (15-37); Alanine Aminotransfer ALT/SGPT 13 U/L (13-56); Albumin, Serum 3.7 g/dL (3.2-5.0); Alkaline Phosphatase 104 U/L (45-117); Anion Gap 6 (5-15); BUN 15 mg/dL (7-18); BUN/Creat Ratio 19.3 RATIO (10-20); Calcium,Total 9.2 mg/dL (8.5-10.1); Chloride 105 mmol/L (98-107); Creatinine, Serum 0.78 mg/dL (0.55-1.02); EST Glomerular Filtration Rate 77 mL/min (>60); Est Glom Filt Rate - Afr Amer 93 mL/min (>60); Ferritin 76 ng/mL (8-252); Globulin 3.8 g/dL (2.2-4.2); Glucose 110 mg/dL (74-106); Iron 37 ug/dL (50-170); Potassium 4.2 mmol/L (3.5-5.1); Protein, Total 7.5 g/dL (6.4-8.2); Sodium Level 137 mmol/L (136-145)
[2020-07-19 07:26] LABS: KEPPRA (LEVETIRACETAM) 39.1 ug/mL (10.0-40.0); Lamotrigine (Lamictal) Level 8.5 ug/mL (2.0-20.0)
== END | disposition home or self-care (01) ==
LOC: LABSPEC 12:13
PROVIDERS: PCP Physician Assistant; Visit Provider Physician Assistant
DX: D50.9 Iron deficiency anemia, unspecified (principal); E55.9 Vitamin D deficiency, unspecified; I10 Essential (primary) hypertension; E44.0 Moderate protein-calorie malnutrition; F33.41 Major depressive disorder, recurrent, in partial remission; G40.009 Localization-related (focal) (partial) idiopathic epilepsy and epileptic syndromes with seizures of localized onset, not intractable, without status epilepticus
CPT/HCPCS: 80053; 80177; 82306; 82542; 82728; 83540; 85025

== ENCOUNTER → 2021-02-10 | Outpatient (CLI) | payer MEDICARE, MEDICAID, SELFPAY ==
[2021-02-10 16:11] LABS: Ferritin 16 ng/mL (8-252); Iron 88 ug/dL (50-170); Iron Binding Capacity,Total 319 ug/dL (250-450); PERCENT IRON SATURATION 27.6 % (15.0-55.0); Thyroid Stim Hormone (TSH) 1.01 uIU/mL (0.358-3.74)
[2021-02-16 13:18] LABS: KEPPRA (LEVETIRACETAM) 32.8 ug/mL (10.0-40.0); Lamotrigine (Lamictal) Level 10.8 ug/mL (2.0-20.0)
== END | disposition home or self-care (01) ==
LOC: LABSPEC 15:15
PROVIDERS: PCP Physician Assistant; Visit Provider Registered Nurse
DX: G40.009 Localization-related (focal) (partial) idiopathic epilepsy and epileptic syndromes with seizures of localized onset, not intractable, without status epilepticus (principal); D50.9 Iron deficiency anemia, unspecified; I10 Essential (primary) hypertension; E55.9 Vitamin D deficiency, unspecified
CPT/HCPCS: 80177; 82306; 82542; 82728; 83540; 83550; 84443

== ENCOUNTER 2022-08-08 12:55 | Emergency (ER) | payer MEDICARE, MEDICAID, SELFPAY ==
[2022-08-08 12:58] VITALS: BP 156/71; PULSE 84; RESP 18; TEMP 36.2; O2SAT 96; BMI 17.2
--- NOTE | 2022-08-08 13:39 | EKG12_ITS ---
Test Reason : FALL Blood Pressure : / mmHG Vent. Rate : 084 BPM Atrial Rate : 084 BPM P-R Int : 156 ms QRS Dur : 086 ms QT Int : 380 ms P-R-T Axes : 083 060 081 degrees QTc Int : 449 ms Normal sinus rhythm Normal ECG Confirmed by MARTINE ROJAS, HECTOR ([id number]), photography editor ADA JOHNSON ([id number]) on 08/10/2022 10:13:24 A M Referred By: Confirmed By:JEN FARLEY MD
--- NOTE | 2022-08-08 13:39 | RAD_ITS ---
STUDY: X-RAY CHEST REASON FOR EXAM: Female, 76 years old. History of fall. Patient not feeling well. TECHNIQUE: Single AP portable view of the chest. COMPARISON: Comparison is made with prior study dated December 04, 2019. FINDINGS: EKG electrodes are seen. Increased markings at the right lung base suggestive of a right basilar infiltrate. Follow-up is recommended. There is no demonstrated pleural abnormality. Normal size heart. Normal mediastinum and galilea. Normal visualized pulmonary arteries. There is atherosclerotic calcification of the aortic arch with tortuosity. There are diffuse degenerative changes of the visualized thoracic spine. Normal visualized ribs, clavicles, and shoulders. There is no demonstrated abnormality of the visualized soft tissue structures of the upper abdomen. RAD/Chest 1 View (Portable) IMPRESSION: Increased markings at the right lung base suggestive of early infiltrate. Follow-up recommended. Electronically Signed: Bello Calles MD at 14:37 EDT ,
--- NOTE | 2022-08-08 13:40 | RAD_ITS ---
INDICATION: pain EXAMINATION/TECHNIQUE: X-RAY - XR Hips Bilateral with Pelvis when performed; 2 Views COMPARISON: Comparison is made with prior study dated November 12, 2019. FINDINGS: PELVIC BONES: The patient is status post prior ORIF of the right intertrochanteric fracture utilizing an intramedullary aura fixation device in size could fixation. The patient is status post left total hip replacement. There is good alignment. SOFT TISSUES: Moderate amount of fecal material is seen in the colon. RAD/Hips B/L min 2 views w/ Pelvis IMPRESSION: No acute abnormality is seen. Electronically Signed: Bello Calles MD at 15:00 EDT ,
--- NOTE | 2022-08-08 13:40 | RAD_ITS ---
STUDY: X-RAY - LUMBAR SPINE REASON FOR EXAM: Female, 76 years old. Pain TECHNIQUE: 2 view(s) of the lumbar spine were obtained. COMPARISON: None FINDINGS: Normal lumbar lordosis. There is no substantial scoliosis. There is a normal alignment of the vertebrae. There is generalized demineralization of the vertebral bodies. Normal disc space heights. There is atherosclerotic calcification of the abdominal aorta without a demonstrated aneurysm. Findings suggestive of an ileus gas pattern. RAD/Lumbar Spine 2 or 3 Views IMPRESSION: Degenerative changes of the spine, as detailed above. Demineralization of the lumbar vertebrae. Electronically Signed: Bello Calles MD at 14:47 EDT ,
--- NOTE | 2022-08-08 14:30 | CT_ITS ---
STUDY: CT BRAIN WITHOUT CONTRAST REASON FOR EXAM: Female, 76 years old. Head injury due to a fall. RADIATION DOSAGE (If Supplied By Facility): CTDIvol = ( 44.99 ) mGy, DLP = ( 829.85 ) mGycm TECHNIQUE: Transaxial CT imaging of the brain was performed without administration of intravenous contrast material. Individualized dose optimization techniques were used for this CT. COMPARISON: Comparison is made with prior study dated March 29, 2016. FINDINGS: Normal soft tissue structures. Normal calvarium. There is mild cerebral atrophy with widening of the extra-axial spaces and ventricular dilatation. There are areas of decreased attenuation within the white matter tracts of the supratentorial brain, consistent with microvascular disease changes. Old lacunar infarct in the right basal ganglion. Normal brainstem. There is mild cerebellar atrophy. There is no intracranial hemorrhage. There are no findings of an acute ischemic infarction. Atherosclerotic plaque formation of the vertebral arteries and cavernous portions of the internal carotid arteries bilaterally. Normal visualized paranasal sinuses. CT/Brain/Head without Contrast IMPRESSION: Chronic involutional changes of the brain. Electronically Signed: Bello Calles MD at 15:02 EDT ,
--- NOTE | 2022-08-08 14:47 | EX.ED.GENINJ ---
HPI History of Present Illness Chief Complaint: Fall Narrative Narrative: 76-year-old female presenting with weakness. Patient states she has been feeling a little bit weak all week long. She has not had a fever or chills. She not coughing or short of breath. Just simply states she is weak. She went to sit down today in her chair and the chair came out from under her and she fell to the floor landing on her buttocks. She states she did not believe she hit her head. No loss of consciousness. She was not able to get up on her own. She states this is her baseline and she typically would be able to get up on her own. She states she has pain in her left hip but this is all chronic. She does state that it does not feel new is just her regular pain. PFSH PFSH Home Medications amlodipine 5 mg tablet 10 mg PO DAILY blood pressure 11/09/15 [History Last Taken 02/19/17] albuterol sulfate 90 mcg/actuation aerosol inhaler (Ventolin HFA) 2 puff inhalation Q4H PRN PRN S OB and or wheezing ##1 03/24/16 [Rx Last Taken Unknown] cholecalciferol (vitamin D3) 50 mcg (2,000 unit) capsule (Vitamin D3) 2,000 unit PO BID vitamin supplement 02/19/17 [History Last Taken 02/19/17] lamotrigine 200 mg tablet (Lamictal) 200 mg PO BID seizures 02/19/17 [History Last Taken 02/19/17] pantoprazole 40 mg tablet,delayed release 40 mg PO DAILY gerd/acid reflux 02/19/17 [History Last Taken 02/19/17] levetiracetam 500 mg tablet 500 mg PO DAILY seizures 11/06/17 [History Last Taken Unknown] levetiracetam 750 mg tablet (Keppra) 750 mg PO QHS seizures 11/06/17 [History Last Taken Unknown] duloxetine 60 mg capsule,delayed release 30 mg PO DAILY depression 09/27/18 [History Last Taken Unknown] mirtazapine 30 mg tablet 30 mg PO QHS sleep 11/12/19 [History Last Taken Unknown] acetaminophen 500 mg tablet 1,000 mg PO Q8 11/27/19 [Rx Last Taken Unknown] menthol 0.44 %-zinc oxide 20.6 % topical ointment 1 applic topical BID 11/27/19 [Rx Last Taken Unknown] polysaccharide iron complex 150 mg iron capsule 150 mg PO DAILYCM supplement #30 caps 11/27/19 [Rx Last Taken Unknown] potassium chloride 10 mEq tablet,extended release(part/cryst) 10 meq PO DAILYCM #30 tabs 11/27/19 [Rx Last Taken Unknown] Allergy/AdvReac Type Severity Reaction Status Date / Time diltiazem Allergy Unknown Verified 08/08/22 12:56 gabapentin Allergy SEVERE LEG Verified 08/08/22 12:56 SWELLING hydrochlorothiazide Allergy Unknown Verified 08/08/22 12:56 [From Dyazide] metoprolol Allergy Unknown Verified 08/08/22 12:56 phenytoin [From Dilantin] Allergy TREMORS/TWI Verified 08/08/22 12:56 TCHING triamterene Allergy Unknown Verified 08/08/22 12:56 ciprofloxacin [From Cipro] AdvReac Other Verified 08/08/22 12:56 Social History Smoking Status: Current every day smoker tobacco type: cigarettes ROS ROS ED Constitutional Constitutional ED: Denies chills or fever(s) Eyes Eyes: Denies blurry vision or change in vision ENT ENT ED: Denies rhinorrhea or sore throat Cardiovascular Cardiovascular: Denies chest pain or palpitations Respiratory/Chest Respiratory/Chest: Denies cough or dyspnea Gastrointestinal Gastrointestinal: Denies abdominal pain, nausea or vomiting Genitourinary Genitourinary ED: Denies dysuria or hematuria Musculoskeletal Musculoskeletal: Reports back pain and other Details: Bilateral hip pain Integumentary Denies abscess Neurologic Neurologic: Denies headache(s) or weakness EXAM Physical Exam Const Vital Signs: 08/08/22 12:58 08/08/22 13:02 08/08/22 15:01 Temperature 97.1 F L Temperature Source Temporal Pulse Rate 84 84 Respiratory Rate 18 16 Respiratory Effort Normal Non-Labored Respiratory Depth Normal Respiratory Pattern Normal Blood Pressure 156/71 H 155/65 H Blood Pressure Mean 99 95 Pulse Ox 96 97 Oxygen Delivery Method Room Air Room Air Room Air Positive well nourished General Appearance ED: NAD HEENT atraumatic Eyes PERRL and EOMs intact bilaterally Chest Wall inspection of chest normal and palpation of chest normal Resp normal respiratory effort Auscultation: Negative for rales, rhonchi or wheezes Cardio regular rhythm GI normal to inspection, nondistended, normoactive bowel sounds Back/Spine Back/Spine Narrative: Tenderness to palpation of the lumbar spine bilaterally. No midline deformities or step-offs Extremity Extremity Narrative: Tenderness to palpation of the left hip. There is no obvious deformity. Negative logroll. Patient able to flex her left hip and her right hip up off the bed without difficulty. Knee extension and flexion are intact bilaterally. Neuro oriented x3, CN's II-XII intact bilaterally, moves all extremities, no focal motor deficits and no sensory deficits noted Sensorium / Orientation: alert Skin no rashes or lesions noted and no wounds MDM MDM MDM Narrative Medical decision making narrative: Patient presenting with weakness this week. She had a fall today sitting back in her chair and missed the chair and hit the ground. She was unable to get up. She states he has a history of epilepsy but no she did not have a seizure. She did not have any specific symptoms other weakness. Differential diagnosis includes dehydration, electrolyte abnormalities, ACS, pneumonia, UTI, anemia, hip fracture, intracranial hemorrhage. CBC to assess white blood cell count, hemoglobin, platelets, differential. BMP to assess renal function, electrolytes, glucose, anion gap. EKG and troponin to assess for cardiac ischemia. Chest x-ray to rule out pneumonia. X-rays of the lumbar spine, bilateral hips will be obtained. Patient declines analgesia at this time. CBC shows a leukocytosis of 17.5. Hemoglobin hematocrit are stable. Platelets are normal. There is noted to be a left shift. Renal function and electrolytes unremarkable. Alkaline phosphatase 178 otherwise LFTs are normal. High-sensitivity troponin is 11. Urinalysis is negative. EKG on my interpretation shows a normal sinus rhythm with a ventricular rate of 84 bpm without sign of ischemia or ectopy. CT brain negative for acute findings. X-rays of the bilateral hips is also performed on my interpretation shows no acute fracture. X-ray of the lumbar spine shows no acute fracture either on my interpretation. Chest x-ray concerning for right lower lobe pneumonia on my interpretation. Radiologist interpretation agrees. Try to ambulate the patient on pulse ox however she is unable to get up and ambulate at all. Given this patient was given his Ancef and azithromycin and spoke to the hospitalist for admission. Impression: 1. Pneumonia 2. Debility 3. Leukocytosis 4. Lumbar contusion 5. Hip Lab Data Labs: Laboratory Results - last 24 hr 08/08/22 08/08/22 08/08/22 14:45 14:45 15:10 WBC 17.5 H RBC 4.37 Hgb 13.8 Hct 41.3 MCV 94.5 MCH 31.6 MCHC 33.4 RDW Std Deviation 48.7 H RDW Coeff of Young 14.0 Plt Count 497 H MPV 8.3 Immature Gran % (Auto) 1.000 H Neut % (Auto) 89.7 H Lymph % (Auto) 4.1 L [place] % (Auto) 5.0 Eos % (Auto) 0.0 Baso % (Auto) 0.2 Absolute Neuts (auto) 15.7 H Absolute Lymphs (auto) 0.72 L Nucleated RBC % 0 Sodium 135 L Potassium 3.7 Chloride 103 Carbon Dioxide 25.0 Anion Gap 7 BUN 24 H Creatinine 0.83 Estim Creat Clear Calc 40.68 Est GFR (MDRD) Af Amer 87 Est GFR (MDRD) Non-Af 72 BUN/Creatinine Ratio 29.1 H Glucose 122 H Calcium 9.3 Total Bilirubin 0.70 AST 15 ALT 27 Alkaline Phosphatase 170 H Troponin I High Sens 11 Total Protein 7.2 Albumin 3.3 Globulin 3.9 Albumin/Globulin Ratio 0.8 L Urine Color Yellow Urine Clarity Sl. Cloudy Urine pH 5.0 Ur Specific [place] 1.020 Urine Protein 30 H Urine Glucose (UA) Normal Urine Ketones Negative Urine Occult Blood Negative Urine Nitrite Negative Urine Bilirubin Negative Urine Urobilinogen 1 H Ur Leukocyte Esterase Negative Urine RBC 0 SEEN Urine WBC 0 SEEN Ur Squamous Epith Cells 0-5 SEEN Urine Bacteria 0 SEEN Urine Mucus 0 SEEN Radiography Diagnostic Testing: Clinical Impression(s) from Imaging Studies Chest X-Ray 08/08/22 13:39 IMPRESSION: Increased markings at the right lung base suggestive of early infiltrate. Follow-up recommended. Electronically Signed: Bello Calles MD at 14:37 EDT , Hip/Pelvis X-Ray 08/08/22 13:40 IMPRESSION: No acute abnormality is seen. Electronically Signed: Bello Calles MD at 15:00 EDT , Lumbar Spine X-Ray 08/08/22 13:40 IMPRESSION: Degenerative changes of the spine, as detailed above. Demineralization of the lumbar vertebrae. Electronically Signed: Bello Calles MD at 14:47 EDT , Brain CT 08/08/22 14:30 IMPRESSION: Chronic involutional changes of the brain. Electronically Signed: Bello Calles MD at 15:02 EDT , Discharge Plan Triage Chief Complaint: Fall Other Complaint: General Illness ED Provider: Eleazar Pollock Dx/Rx/DC Orders Prescriptions: No Action amlodipine 5 MG tablet 10 mg PO DAILY Label Comments: BP albuterol sulfate [Ventolin HFA] 1 INHALER inhaler 2 puff inhalation Q4H PRN PRN (Reason: S OB and or wheezing) Qty: 1 0RF lamotrigine [Lamictal] 200 MG tablet 200 mg PO BID pantoprazole 40 MG tablet,delayed release (DR/EC) 40 mg PO DAILY cholecalciferol (vitamin D3) [Vitamin D3] 2,000 UNIT capsule 2,000 unit PO BID duloxetine 60 MG capsule 30 mg PO DAILY Label Comments: TAKE 1 CAPSULE BY MOUTH ONCE DAILY mirtazapine 30 MG tablet 30 mg PO QHS acetaminophen 500 MG tablet 1,000 mg PO Q8 0RF potassium chloride 10 MEQ tablet 10 meq PO DAILYCM Qty: 30 0RF menthol-zinc oxide 1 APPLIC ointment 1 applic topical BID 0RF Protocol: *Topical Application Instructions APPLICATION INSTRUCTIONS: apply to bilat buttocks polysaccharide iron complex 150 MG capsule 150 mg PO DAILYCM Qty: 30 0RF levetiracetam [Keppra] 750 MG tablet 750 mg PO QHS levetiracetam 500 MG tablet 500 mg PO DAILY Primary Care Provider: Navjot Muñoz Referrals: Navjot Mñuoz, PA [Primary Care Provider] -
[2022-08-08 15:00] LABS: Absolute Lymphocyte Count 0.72 X10^3/uL (0.83-4.51); Absolute Neutrophil Count 15.7 X10^3/uL (2.0-7.7); Basophil# 0.03 X10^3/uL; Basophil% 0.2 % (0-1); Hematocrit 41.3 % (37-47); Hemoglobin 13.8 g/dL (12.0-15.0); Lymphocyte # 0.72 X10^3/ul (0.83-4.51); Lymphocyte % 4.1 % (19-41); Mean Corp Hgb Conc 33.4 g/dL (32-36); Mean Corpuscular Hgb 31.6 pg (27.0-32.0); Mean Corpuscular Volume 94.5 fL (81-99); Mean Platelet Vol. 8.3 fl (6.2-12.0); Monocyte# 0.87 X10^3/uL; NRBC Flagged by Analyzer 0 % (0-5); Neutrophil # 15.72 X10^3/uL (2.7-7.7); Neutrophil % 89.7 % (47-70); Platelet Count 497 K/mm3 (150-450); RBC Distribution Width SD 48.7 fl (35.1-43.9); Red Blood Count 4.37 M/mm3 (4.2-5.4); White Blood Count 17.5 K/mm3 (4.4-11.0)
[2022-08-08 15:01] VITALS: BP 155/65; PULSE 84; RESP 16; O2SAT 97
[2022-08-08 15:18] LABS: ALB/GLOB Ratio 0.8 RATIO (0.9-2.4); AST(SGOT) 15 U/L (15-37); Alanine Aminotransfer ALT/SGPT 27 U/L (13-56); Albumin, Serum 3.3 g/dL (3.2-5.0); Alkaline Phosphatase 170 U/L (45-117); Anion Gap 7 (5-15); BUN 24 mg/dL (7-18); BUN/Creat Ratio 29.1 RATIO (10-20); Calcium,Total 9.3 mg/dL (8.5-10.1); Chloride 103 mmol/L (98-107); Creatinine, Serum 0.83 mg/dL (0.55-1.02); EST Glomerular Filtration Rate 72 mL/min (>60); Est Glom Filt Rate - Afr Amer 87 mL/min (>60); Estimated Creatinine Clearance 40.68 ml/min; Globulin 3.9 g/dL (2.2-4.2); Glucose 122 mg/dL (74-106); Potassium 3.7 mmol/L (3.5-5.1); Protein, Total 7.2 g/dL (6.4-8.2); Sodium Level 135 mmol/L (136-145); Troponin-I HS 11 pg/mL (3.0-54.0)
[2022-08-08 15:19] LABS: Bacteria 0 SEEN /hpf (None Seen); Mucous, Urine 0 SEEN /hpf (<or=2+); Red Blood Cells-Urine 0 SEEN /hpf (0-5); White Blood Cells 0 SEEN /hpf (0-5)
[2022-08-08 15:21] LABS: Color, Urine Yellow (Yellow); Glucose, Dipstick Normal (Normal); Ketone-Dipstick Negative (Negative); Leukocyte Esterase-Dipstick Negative /ul (Negative); Nitrite-Dipstick Negative (Negative); Occult Blood-Urine Negative /ul (Negative); Protein-Dipstick 30 mg/dl (Negative); Urine Bilirubin Dipstick Negative (Negative); Urine Clarity Sl. Cloudy (Clear); Urine Urobilinogen 1 mg/dl (Normal)
[2022-08-08 15:27] LABS: Squamous Epithelial Cells - UA 0-5 SEEN /hpf (5-10)
--- NOTE | 2022-08-08 16:14 | NURSING ---
MED SURG OBS URMILA PNA, WEAKNESS
--- NOTE | 2022-08-08 16:25 | DCINST_ITS ---
Discharge Instructions Diet Discharge Diet: No restrictions Activity Discharge Activity: Use Walker Follow Up Care Test Results: Test results from this visit will be discussed in further detail at your follow- up appointment, if applicable. Discharge Plan Triage Chief Complaint: Fall Other Complaint: General Illness ED Provider: Eleazar Pollock Dx/Rx/DC Orders Prescriptions: New amoxicillin-pot clavulanate 875-125 mg tablet 1 tab PO BID Qty: 14 0RF guaifenesin 200 mg tablet 200 mg PO Q4H PRN (Reason: cough) Qty: 10 0RF Continued amlodipine 5 MG tablet 10 mg PO DAILY Label Comments: BP albuterol sulfate [Ventolin HFA] 1 INHALER inhaler 2 puff inhalation Q4H PRN PRN (Reason: S OB and or wheezing) Qty: 1 0RF lamotrigine [Lamictal] 200 MG tablet 200 mg PO BID pantoprazole 40 MG tablet,delayed release (DR/EC) 40 mg PO DAILY cholecalciferol (vitamin D3) [Vitamin D3] 2,000 UNIT capsule 2,000 unit PO BID duloxetine 60 MG capsule 30 mg PO DAILY Label Comments: TAKE 1 CAPSULE BY MOUTH ONCE DAILY mirtazapine 30 MG tablet 30 mg PO QHS acetaminophen 500 MG tablet 1,000 mg PO Q8 0RF potassium chloride 10 MEQ tablet 10 meq PO DAILYCM Qty: 30 0RF menthol-zinc oxide 1 APPLIC ointment 1 applic topical BID 0RF Protocol: *Topical Application Instructions APPLICATION INSTRUCTIONS: apply to bilat buttocks polysaccharide iron complex 150 MG capsule 150 mg PO DAILYCM Qty: 30 0RF levetiracetam [Keppra] 750 MG tablet 750 mg PO QHS levetiracetam 500 MG tablet 500 mg PO DAILY Primary Care Provider: Navjot Muñoz Referrals: Navjot Muñoz PA [Primary Care Provider] - 1 Week Disposition Disposition: Home, Self Care
--- NOTE | 2022-08-08 16:35 | CON.PCM.HO_ITS ---
Assessment & Plan Assessment/Plan (1) Pneumonia: PLAN: Noted right lower lobe infiltrate with a leukocytosis. Patient is currently hemodynamically stable. I do not feel the patient needs to be admitted for pneumonia and can be treated as outpatient with Augmentin. (2) Fall: PLAN: Had fallen due to the chair slipping out. Patient had declined walking to nursing staff but with encouragement, patient was able to get herself out of bed on her own and able to use a walker. Patient was steady and did not require any assistance. There is no need for the patient to be admitted and be evaluated by therapy or even require any kind of placement. Patient can be discharged home to continue using her walker which she already does. HPI Consult Data Date of Consult: 08/08/22 HPI Narrative Reason for Consultation: Fall HPI Narrative: JOHN OLIVAS, is a 76 F who presents after a fall. Patient was in a computer chair and it slid out from her and she landed on her buttocks. Patient states that her daughter told her not to get up and the patient was sent to the emergency room. Patient had [place] x-rays are unremarkable except for she did have some right lower lobe infiltrate. Patient does note that she has been feel like she has had a cold for the past few days. Denies any fever chills or shortness of breath. I was informed that the patient was unable to get up. Actuality the patient declined getting up with nurses. Patient states that she normally uses a walker to get around. She does live with her daughter and grandson who are wheelchair-bound due to osteogenesis imperfecta. [facility] Medical History (Updated 08/08/22 @ 16:[address] Bala Carlos, ) Closed right hip fracture COPD (chronic obstructive pulmonary disease) Depression Dysphagia Epilepsy GERD (gastroesophageal reflux disease) History of hypertension History of seizures Hypertension Postoperative anemia Seizure Tardive dyskinesia Home Medications amlodipine 5 mg tablet 10 mg PO DAILY blood pressure 11/09/15 [History Last Taken 02/19/17] albuterol sulfate 90 mcg/actuation aerosol inhaler (Ventolin HFA) 2 puff inhalation Q4H PRN PRN S OB and or wheezing ##1 03/24/16 [Rx Last Taken Unknown] cholecalciferol (vitamin D3) 50 mcg (2,000 unit) capsule (Vitamin D3) 2,000 unit PO BID vitamin supplement 02/19/17 [History Last Taken 02/19/17] lamotrigine 200 mg tablet (Lamictal) 200 mg PO BID seizures 02/19/17 [History Last Taken 02/19/17] pantoprazole 40 mg tablet,delayed release 40 mg PO DAILY gerd/acid reflux 02/19/17 [History Last Taken 02/19/17] levetiracetam 500 mg tablet 500 mg PO DAILY seizures 11/06/17 [History Last Taken Unknown] levetiracetam 750 mg tablet (Keppra) 750 mg PO QHS seizures 11/06/17 [History Last Taken Unknown] duloxetine 60 mg capsule,delayed release 30 mg PO DAILY depression 09/27/18 [History Last Taken Unknown] mirtazapine 30 mg tablet 30 mg PO QHS sleep 11/12/19 [History Last Taken Unknown] acetaminophen 500 mg tablet 1,000 mg PO Q8 11/27/19 [Rx Last Taken Unknown] menthol 0.44 %-zinc oxide 20.6 % topical ointment 1 applic topical BID 11/27/19 [Rx Last Taken Unknown] polysaccharide iron complex 150 mg iron capsule 150 mg PO DAILYCM supplement #30 caps 11/27/19 [Rx Last Taken Unknown] potassium chloride 10 mEq tablet,extended release(part/cryst) 10 meq PO DAILYCM #30 tabs 11/27/19 [Rx Last Taken Unknown] amoxicillin 875 mg-potassium clavulanate 125 mg tablet 1 tab PO BID #14 tabs 08/08/22 [Rx Last Taken Unknown] guaifenesin 200 mg tablet 200 mg PO Q4H PRN cough #10 tabs 08/08/22 [Rx Last Taken Unknown] Allergy/AdvReac Type Severity Reaction Status Date / Time diltiazem Allergy Unknown Verified 08/08/22 12:56 gabapentin Allergy SEVERE LEG Verified 08/08/22 12:56 SWELLING hydrochlorothiazide Allergy Unknown Verified 08/08/22 12:56 [From Dyazide] metoprolol Allergy Unknown Verified 08/08/22 12:56 phenytoin [From Dilantin] Allergy TREMORS/TWI Verified 08/08/22 12:56 TCHING triamterene Allergy Unknown Verified 08/08/22 12:56 ciprofloxacin [From Cipro] AdvReac Other Verified 08/08/22 12:56 Family History (Updated 08/08/22 @ 16:[address] Bala Carlos, DO) Daughter Osteogenesis imperfecta Social History Smoking Status: Current every day smoker tobacco type: cigarettes ROS ROS Narrative Has involuntary mouth movements. All review of systems were negative except as mentioned above in the history of present illness and the other review of systems. Physical Exam Const alert and no apparent distress Constitutional Narrative: Involuntary mouth movements. Speech is coherent. To get the patient up with a walker she. She was able to get out of bed on her own and use a walker safely. Also her pulse ox was 95% with ambulation. HEENT normocephalic Resp normal respiratory effort, no retractions, no use of accessory muscles and clear to auscultation bilaterally Cardio regular rate, regular rhythm, S1 normal heart sound and S2 normal heart sound GI normal to inspection, nondistended, normoactive bowel sounds, soft to palpation, non-tender and non-distended Extremity normal to inspection and full ROM Lab / Micro Data Result Diagrams: 08/08/22 14:45 08/08/22 14:45 Labs: Laboratory Results - last 24 hr 08/08/22 14:45: WBC 17.5 H, RBC 4.37, Hgb 13.8, Hct 41.3, MCV 94.5, MCH 31.6, MCHC 33.4, RDW Std Deviation 48.7 H, RDW Coeff of Young 14.0, Plt Count 497 H, MPV 8.3, Immature Gran % (Auto) 1.000 H, Neut % (Auto) 89.7 H, Lymph % (Auto) 4.1 L, [place] % (Auto) 5.0, Eos % (Auto) 0.0, Baso % (Auto) 0.2, Absolute Neuts (auto) 15.7 H, Absolute Lymphs (auto) 0.72 L, Nucleated RBC % 0 08/08/22 14:45: Sodium 135 L, Potassium 3.7, Chloride 103, Carbon Dioxide 25.0, Anion Gap 7, BUN 24 H, Creatinine 0.83, Estim Creat Clear Calc 40.68, Est GFR (MDRD) Af Amer 87, Est GFR (MDRD) Non-Af 72, BUN/Creatinine Ratio 29.1 H, Glucose 122 H, Calcium 9.3, Total Bilirubin 0.70, AST 15, ALT 27, Alkaline Phosphatase 170 H, Troponin I High Sens 11, Total Protein 7.2, Albumin 3.3, Globulin 3.9, Albumin/Globulin Ratio 0.8 L 08/08/22 15:10: Urine Color Yellow, Urine Clarity Sl. Cloudy, Urine pH 5.0, Ur Specific [place] 1.020, Urine Protein 30 H, Urine Glucose (UA) Normal, Urine Ketones Negative, Urine Occult Blood Negative, Urine Nitrite Negative, Urine Bilirubin Negative, Urine Urobilinogen 1 H, Ur Leukocyte Esterase Negative, Urine RBC 0 SEEN, Urine WBC 0 SEEN, Ur Squamous Epith Cells 0-5 SEEN, Urine Bacteria 0 SEEN, Urine Mucus 0 SEEN Radiology Impression Chest X-Ray 08/08/22 13:39 IMPRESSION: Increased markings at the right lung base suggestive of early infiltrate. Follow-up recommended. Electronically Signed: Bello Calles MD at 14:37 EDT , Hip/Pelvis X-Ray 08/08/22 13:40 IMPRESSION: No acute abnormality is seen. Electronically Signed: Bello Calles MD at 15:00 EDT , Lumbar Spine X-Ray 08/08/22 13:40 IMPRESSION: Degenerative changes of the spine, as detailed above. Demineralization of the lumbar vertebrae. Electronically Signed: Bello Calles MD at 14:47 EDT , Brain CT 08/08/22 14:30 IMPRESSION: Chronic involutional changes of the brain. Electronically Signed: Bello Calles MD at 15:02 EDT , Charges/Coding Visit Charges Office Visits / Consults: [id number] OP Consult L3
--- NOTE | 2022-08-08 16:52 | ED.RN ---
Dr Carlos instructed this rn to not administer IV antibiotics. Other orders to be entered per dr carlos
--- NOTE | 2022-08-08 17:00 | ED.RN ---
daughter called and notified of discharge. she is to call pts sister to come and get her.
--- NOTE | 2022-08-08 17:33 | ED.RN ---
sister here to picker pt. aware of need to go to retail pharmacy for dc meds.
== END 2022-08-08 17:33 | disposition home or self-care (01) ==
PROVIDERS: Emergency Provider Student in an Organized Health Care Education/Training Program; PCP Physician Assistant; Visit Provider Student in an Organized Health Care Education/Training Program
DX: J18.9 Pneumonia, unspecified organism (principal); F17.210 Nicotine dependence, cigarettes, uncomplicated; S30.0XXA Contusion of lower back and pelvis, initial encounter; R53.81 Other malaise; D72.829 Elevated white blood cell count, unspecified; W07.XXXA Fall from chair, initial encounter
CPT/HCPCS: 70450; 71045; 72100; 73521; 80053; 81001; 84484; 85025; 93005; 99285; P9612; A4216

== ENCOUNTER 2022-08-09 15:33 | Emergency (ER) | payer MEDICARE, MEDICAID, SELFPAY ==
[2022-08-09 15:33] VITALS: BP 126/98; PULSE 55; RESP 18; TEMP 36.7; O2SAT 91
[2022-08-09 15:44] VITALS: BMI 16.7
--- NOTE | 2022-08-09 16:02 | CT_ITS ---
We are attempting to reach an attending provider to discuss findings. An addendum with communication details will be sent when the communication is complete. STUDY: CT BRAIN WITHOUT CONTRAST REASON FOR EXAM: Female, 76 years old. fall/trauma RADIATION DOSAGE (If Supplied By Facility): CTDIvol = ( 44.99 ) mGy, DLP = ( 829.85 ) mGycm TECHNIQUE: Transaxial CT imaging of the brain was performed without administration of intravenous contrast material. Individualized dose optimization techniques were used for this CT. COMPARISON: 08/08/2022 FINDINGS: Since prior study patient has developed a mild right subdural hematoma, no more than 3 mm thick, and with no significant mass effect or midline shift. No other changes or findings since yesterday''s exam. Again seen are involutional changes including chronic white matter disease. CT/Brain/Head without Contrast IMPRESSION: Since prior study, patient has developed a mild right subdural hematoma without significant mass effect. Electronically Signed: Ti Goldberg MD at 16:54 EDT ,
--- NOTE | 2022-08-09 16:04 | ED.VIS.FALL ---
HPI HPI - Fall History of Present Illness Chief Complaint: Fall Informant: patient and EMS Narrative Narrative: Patient states she was sitting on couch when she got up and slipped on a wet floor that she did not realize was as wet as it was, due to her daughter using a wet swiffer on it just prior to her standing. She states she hit her head, no loss of consciousness she denies headache, nausea, vomiting. She has a little bit of pain in her right posterior lateral neck, but she denies any other pain or injury. She walks with a walker at baseline has been able to since this happened. She denies being on an anticoagulant but then states I do not know what my medications are. [facility] Medical History Closed right hip fracture COPD (chronic obstructive pulmonary disease) Depression Dysphagia Epilepsy GERD (gastroesophageal reflux disease) History of hypertension History of seizures Hypertension Postoperative anemia Seizure Tardive dyskinesia Home Medications amlodipine 5 mg tablet 10 mg PO DAILY blood pressure 11/09/15 [History Last Taken 02/19/17] albuterol sulfate 90 mcg/actuation aerosol inhaler (Ventolin HFA) 2 puff inhalation Q4H PRN PRN S OB and or wheezing ##1 03/24/16 [Rx Last Taken Unknown] cholecalciferol (vitamin D3) 50 mcg (2,000 unit) capsule (Vitamin D3) 2,000 unit PO BID vitamin supplement 02/19/17 [History Last Taken 02/19/17] lamotrigine 200 mg tablet (Lamictal) 200 mg PO BID seizures 02/19/17 [History Last Taken 02/19/17] pantoprazole 40 mg tablet,delayed release 40 mg PO DAILY gerd/acid reflux 02/19/17 [History Last Taken 02/19/17] levetiracetam 500 mg tablet 500 mg PO DAILY seizures 11/06/17 [History Last Taken Unknown] levetiracetam 750 mg tablet (Keppra) 750 mg PO QHS seizures 11/06/17 [History Last Taken Unknown] duloxetine 60 mg capsule,delayed release 30 mg PO DAILY depression 09/27/18 [History Last Taken Unknown] mirtazapine 30 mg tablet 30 mg PO QHS sleep 11/12/19 [History Last Taken Unknown] acetaminophen 500 mg tablet 1,000 mg PO Q8 11/27/19 [Rx Last Taken Unknown] menthol 0.44 %-zinc oxide 20.6 % topical ointment 1 applic topical BID 11/27/19 [Rx Last Taken Unknown] polysaccharide iron complex 150 mg iron capsule 150 mg PO DAILYCM supplement #30 caps 11/27/19 [Rx Last Taken Unknown] potassium chloride 10 mEq tablet,extended release(part/cryst) 10 meq PO DAILYCM #30 tabs 11/27/19 [Rx Last Taken Unknown] amoxicillin 875 mg-potassium clavulanate 125 mg tablet 1 tab PO BID #14 tabs 08/08/22 [Rx Last Taken Unknown] guaifenesin 200 mg tablet 200 mg PO Q4H PRN cough #10 tabs 08/08/22 [Rx Last Taken Unknown] Allergy/AdvReac Type Severity Reaction Status Date / Time diltiazem Allergy Unknown Verified 08/08/22 12:56 gabapentin Allergy SEVERE LEG Verified 08/08/22 12:56 SWELLING hydrochlorothiazide Allergy Unknown Verified 08/08/22 12:56 [From Dyazide] metoprolol Allergy Unknown Verified 08/08/22 12:56 phenytoin [From Dilantin] Allergy TREMORS/TWI Verified 08/08/22 12:56 TCHING triamterene Allergy Unknown Verified 08/08/22 12:56 ciprofloxacin [From Cipro] AdvReac Other Verified 08/08/22 12:56 Family History (Updated 08/08/22 @ 16:[address] Bala Carlos DO) Daughter Osteogenesis imperfecta Social History Smoking Status: Current every day smoker tobacco type: cigarettes ROS ROS ED Constitutional Constitutional ED: Denies chills or fever(s) Eyes Eyes: Denies change in vision or diplopia ENT ENT ED: Reports facial pain; Denies ear pain, epistaxis or rhinorrhea Cardiovascular Cardiovascular: Denies chest pain or palpitations Respiratory/Chest Respiratory/Chest: Denies cough or dyspnea Gastrointestinal Gastrointestinal: Denies abdominal pain, diarrhea, melena, nausea or vomiting Genitourinary Genitourinary ED: Denies dysuria or hematuria Musculoskeletal Musculoskeletal: Reports neck pain; Denies back pain or extremity pain Integumentary Denies abscess, Abrasions, laceration or rash Neurologic Neurologic: Reports tremor(s); Denies confusion, headache(s), paresthesias or weakness EXAM Physical Exam Const Vital Signs: 08/09/22 15:33 08/09/22 15:46 08/09/22 17:29 Temperature 98.1 F Temperature Source Temporal Pulse Rate 55 L 96 Respiratory Rate 18 13 Respiratory Effort Normal Non-Labored Respiratory Depth Normal Respiratory Pattern Normal Blood Pressure 126/98 H 139/63 H Blood Pressure Mean 107 88 Pulse Ox 91 96 Oxygen Delivery Method Room Air Room Air 08/09/22 18:11 08/09/22 19:29 Temperature Temperature Source Pulse Rate 92 91 Respiratory Rate 12 24 H Respiratory Effort Respiratory Depth Respiratory Pattern Blood Pressure 135/70 H 130/63 H Blood Pressure Mean 91 85 Pulse Ox 96 96 Oxygen Delivery Method Room Air Positive well nourished and well developed General Appearance ED: well developed and NAD HEENT Reports TM's clear and nasal mucous membranes and turbinates normal HEENT Narrative: Small contusion/hematoma with an abrasion and tenderness left superior lateral orbital brim without crepitance or deformity. No other signs of HEENT trauma. No mata sign or periorbital ecchymosis. No CSF otorhinorrhea. Face and Sinus: facial tenderness Tympanic Membrane ED: Yes TM's clear Eyes PERRL and EOMs intact bilaterally Eyes Narrative: No enophthalmos or proptosis. Visual Acuity: other Other Details: no entrapment or pain with extraocular movements Neck full ROM and supple Neck Narrative: Very mild tenderness just caudal to the right mastoid process in the neck musculature. No midline tenderness or step-off, full range of motion without difficulty or pain. General: tenderness Chest Wall inspection of chest normal and palpation of chest normal Chest: symmetrical chest wall rise; Negative for crepitus or tenderness Resp normal respiratory effort and clear to auscultation bilaterally Percussion: other equal BS bilat Cardio Rate: regular rate Rhythm: regular rhythm GI normal to inspection, nondistended, normoactive bowel sounds, soft to palpation and non-tender Back/Spine normal ROM Cervical Spine: Negative for cervical spine tenderness Thoracic Spine / Upper Back: Negative for thoracic spinal tenderness Lumbar Spine / Lower Back: Negative for lumbar spinal tenderness Extremity normal to inspection and full ROM General Extremety ED: Negative for tenderness Neuro oriented x3, CN's II-XII intact bilaterally, moves all extremities, no focal motor deficits and no sensory deficits noted Neuro Narrative: Tremor [place] Coma Scale: document GCS findings Spontaneous Obeys Commands Oriented 15 Sensorium / Orientation: awake and alert Psych mental status grossly normal and thought process normal Skin no wounds Lesions: no lesions Rashes: no rashes MDM MDM MDM Narrative Medical decision making narrative: CT of the head was obtained, which shows an acute subdural hematoma, which is acute since radiology compared it to the head scan that she had yesterday from her fall then, I reviewed all the images and the report which I agree with. On reexamination patient has normal vital signs, she has a GCS of 15, and is neurologically intact except for her tardive dyskinesia which is chronic and old. I discussed with family, they state that she is too weak to be at home, and she fell because of that today. In reviewing old records, it seems that she was diagnosed with pneumonia after being very weak for the last week and falling yesterday, started on IV antibiotics and lined up for admission, but the hospitalist saw her and thought she was appropriate for discharge home and sent her home with a prescription for Augmentin, she did take the first pill of that this morning. Since she is not hypoxic or septic here, I am focusing on transportation to higher level of care, she wanted to go to [facility], they do have the capacity to accept the patient, she was excepted by Dr. Espinoza to the ER and we are waiting for transport. Patient is on no antiplatelets or anticoagulants so does not require reversal of any medications, and since she is neurologically intact throughout multiple reevaluations, I do not think she needs to be sent by air. History & Record Review Additional record(s) reviewed:: Prior outpatient record, Prior ED visit and Prior labs Lab Data Attestation: I reviewed the patient's lab results. Labs: Laboratory Results - last 24 hr 08/09/22 08/09/22 17:01 17:01 WBC 13.2 H RBC 4.49 Hgb 14.0 Hct 43.7 MCV 97.3 MCH 31.2 MCHC 32.0 RDW Std Deviation 51.0 H RDW Coeff of Young 14.4 Plt Count 562 H MPV 8.4 Immature Gran % (Auto) 0.900 Neut % (Auto) 85.9 H Lymph % (Auto) 6.2 L [place] % (Auto) 6.6 Eos % (Auto) 0.2 Baso % (Auto) 0.2 Absolute Neuts (auto) 11.3 H Absolute Lymphs (auto) 0.82 L Nucleated RBC % 0 Sodium 134 L Potassium 3.8 Chloride 104 Carbon Dioxide 22.0 Anion Gap 8 BUN 19 H Creatinine 0.63 Estim Creat Clear Calc 32.84 Est GFR (MDRD) Af Amer 118 Est GFR (MDRD) Non-Af 98 BUN/Creatinine Ratio 30.1 H Glucose 90 Calcium 9.0 Total Bilirubin 0.60 AST 23 ALT 29 Alkaline Phosphatase 173 H Total Protein 7.3 Albumin 3.3 Globulin 4.0 Albumin/Globulin Ratio 0.8 L Radiography Chest X-Ray - ED: 2 View, Read by ED Physician and Right Infiltrate Diagnostic Testing: Clinical Impression(s) from Imaging Studies Brain CT 08/09/22 16:02 IMPRESSION: Since prior study, patient has developed a mild right subdural hematoma without significant mass effect. Electronically Signed: Ti Goldberg MD at 16:54 EDT Reading Location ID and State: [facility] / [place] , Service support , ADDENDUM: 08/09/22 1730 IMPRESSION: Since prior study, patient has developed a mild right subdural hematoma without significant mass effect. N.B. : The above Results were Read Back by Ti Goldberg MD to Alfredo Salazar MD, and understanding confirmed on 08/09/2022 17:23:08 (ET). Electronically Signed: Ti Goldberg MD at 16:54 EDT Reading Location ID and State: [facility] / [place] , Service support , Chest X-Ray 08/09/22 17:40 IMPRESSION: Proving aeration in the right lung base. Question trace pleural effusions. Electronically Signed: Ti Goldberg MD at 18:22 EDT Reading Location ID and State: [facility] / [place] , Service support , Management Discussion w/another healthcare provider: Counter Tacker (for x-tha) Critical Care Time Critical Care Time: Yes Critical care time (excluding procedures): 30-74 minutes (40 min), Including time spent:, Discussing w/Patient &/or Family/Social Worker, Discussing w/Consultants, Arranging Admission or Transfer and Performing Direct Patient Care at Bedside Discharge Plan Triage Chief Complaint: Fall ED Provider: Alfredo Salazar Dx/Rx/DC Orders Clinical Impression: Traumatic subdural hematoma, Pneumonia, Generalized weakness, Fall from slipping on wet surface Prescriptions: No Action amlodipine 5 MG tablet 10 mg PO DAILY Label Comments: BP albuterol sulfate [Ventolin HFA] 1 INHALER inhaler 2 puff inhalation Q4H PRN PRN (Reason: S OB and or wheezing) Qty: 1 0RF lamotrigine [Lamictal] 200 MG tablet 200 mg PO BID pantoprazole 40 MG tablet,delayed release (DR/EC) 40 mg PO DAILY cholecalciferol (vitamin D3) [Vitamin D3] 2,000 UNIT capsule 2,000 unit PO BID duloxetine 60 MG capsule 30 mg PO DAILY Label Comments: TAKE 1 CAPSULE BY MOUTH ONCE DAILY mirtazapine 30 MG tablet 30 mg PO QHS acetaminophen 500 MG tablet 1,000 mg PO Q8 0RF potassium chloride 10 MEQ tablet 10 meq PO DAILYCM Qty: 30 0RF menthol-zinc oxide 1 APPLIC ointment 1 applic topical BID 0RF Protocol: *Topical Application Instructions APPLICATION INSTRUCTIONS: apply to bilat buttocks polysaccharide iron complex 150 MG capsule 150 mg PO DAILYCM Qty: 30 0RF amoxicillin-pot clavulanate 875-125 mg tablet 1 tab PO BID Qty: 14 0RF guaifenesin 200 mg tablet 200 mg PO Q4H PRN (Reason: cough) Qty: 10 0RF levetiracetam [Keppra] 750 MG tablet 750 mg PO QHS levetiracetam 500 MG tablet 500 mg PO DAILY Primary Care Provider: Navjot Muñoz Referrals: Navjot Muñoz PA [Primary Care Provider] - Disposition Disposition: Acute Care Hospital Discharge Location: [facility] Discharge Date/Time: 08/09/22 20:07
--- NOTE | 2022-08-09 16:45 | ED.RN ---
RN at the bedside to ambulate the pt. Pt. unable to stand without 2 staff assist.
[2022-08-09 17:29] VITALS: BP 139/63; PULSE 96; RESP 13; O2SAT 96
[2022-08-09 17:32] LABS: Absolute Lymphocyte Count 0.82 X10^3/uL (0.83-4.51); Absolute Neutrophil Count 11.3 X10^3/uL (2.0-7.7); Basophil# 0.03 X10^3/uL; Basophil% 0.2 % (0-1); Eosinophil# 0.02 X10^3/uL; Eosinophils% 0.2 % (0-5); Hematocrit 43.7 % (37-47); Lymphocyte # 0.82 X10^3/ul (0.83-4.51); Lymphocyte % 6.2 % (19-41); Mean Corpuscular Hgb 31.2 pg (27.0-32.0); Mean Corpuscular Volume 97.3 fL (81-99); Mean Platelet Vol. 8.4 fl (6.2-12.0); Monocyte# 0.87 X10^3/uL; Monocyte% 6.6 % (0-10); NRBC Flagged by Analyzer 0 % (0-5); Neutrophil # 11.34 X10^3/uL (2.7-7.7); Neutrophil % 85.9 % (47-70); Platelet Count 562 K/mm3 (150-450); RBC Distribution Width CV 14.4 % (11.6-14.6); Red Blood Count 4.49 M/mm3 (4.2-5.4); White Blood Count 13.2 K/mm3 (4.4-11.0)
[2022-08-09] MEDS: 0.9% Normal Saline 1,000 ML 100 ML IV (17:35)
--- NOTE | 2022-08-09 17:40 | RAD_ITS ---
STUDY: X-RAY CHEST REASON FOR EXAM: Female, 76 years old. weakness TECHNIQUE: Frontal and lateral views of the chest. COMPARISON: 08/08/2022. FINDINGS: There is hyperinflation of the lungs consistent with chronic obstructive lung disease (COPD). Streaky densities in the right lung base is slightly improved consistent with improved aeration of previous subsegmental atelectasis. Improving infiltrate also possible. Possible trace pleural effusions. Normal size heart. Normal mediastinum and galilea. Normal visualized pulmonary arteries. There is atherosclerotic calcification of the aortic arch with tortuosity. There are diffuse degenerative changes of the visualized thoracic spine. Normal visualized ribs, clavicles, and shoulders. There is no demonstrated abnormality of the visualized soft tissue structures of the upper abdomen. RAD/Chest PA and Lateral IMPRESSION: Proving aeration in the right lung base. Question trace pleural effusions. Electronically Signed: Ti Goldberg MD at 18:22 EDT ,
--- NOTE | 2022-08-09 17:40 | NURSING ---
CALLED [facility]YDE[facility] SHAFFER FOR INITIAL TRANSFER CALL. FAXED FACESHEET
[2022-08-09 17:49] LABS: ALB/GLOB Ratio 0.8 RATIO (0.9-2.4); AST(SGOT) 23 U/L (15-37); Alanine Aminotransfer ALT/SGPT 29 U/L (13-56); Albumin, Serum 3.3 g/dL (3.2-5.0); Alkaline Phosphatase 173 U/L (45-117); Anion Gap 8 (5-15); BUN 19 mg/dL (7-18); BUN/Creat Ratio 30.1 RATIO (10-20); Chloride 104 mmol/L (98-107); Creatinine, Serum 0.63 mg/dL (0.55-1.02); EST Glomerular Filtration Rate 98 mL/min (>60); Est Glom Filt Rate - Afr Amer 118 mL/min (>60); Estimated Creatinine Clearance 32.84 ml/min; Glucose 90 mg/dL (74-106); Potassium 3.8 mmol/L (3.5-5.1); Protein, Total 7.3 g/dL (6.4-8.2); Sodium Level 134 mmol/L (136-145)
--- NOTE | 2022-08-09 17:50 | NURSING ---
CALLED [facility], ETA IS 1 HR
[2022-08-09 18:11] VITALS: BP 135/70; PULSE 92; RESP 12; O2SAT 96
[2022-08-09 19:29] VITALS: BP 130/63; PULSE 91; RESP 24; O2SAT 96
== END 2022-08-09 20:07 | disposition short-term general hospital (02) ==
PROVIDERS: Emergency Provider Emergency Medicine; PCP Physician Assistant; Visit Provider Emergency Medicine
DX: S06.5X0A Traumatic subdural hemorrhage without loss of consciousness, initial encounter (principal); J44.9 Chronic obstructive pulmonary disease, unspecified; G40.909 Epilepsy, unspecified, not intractable, without status epilepticus; J18.9 Pneumonia, unspecified organism; F17.210 Nicotine dependence, cigarettes, uncomplicated; I10 Essential (primary) hypertension; R53.1 Weakness; W01.10XA Fall on same level from slipping, tripping and stumbling with subsequent striking against unspecified object, initial encounter; Z79.899 Other long term (current) drug therapy; K21.9 Gastro-esophageal reflux disease without esophagitis; F32.A Depression, unspecified
CPT/HCPCS: 70450; 71046; 80053; 85025; 96360; 96361; 99285; J7030; A4216